=== PATIENT | female | born 1960 | race Hispanic/Latino ===

== ENCOUNTER 2018-05-08 07:17 | Emergency (ER) | payer OTHER ==
[2018-05-08] MEDS ORDERED: NA CHLORIDE 0.9% 1,000 ML ONE (07:42)
[2018-05-08] MEDS ORDERED: MECLIZINE HCL 12.5 MG TAB ONE (07:42)
[2018-05-08] MEDS ORDERED: ONDANSETRON 4 MG/2 ML VIAL ONE ×2 (07:43→11:16)
--- NOTE | 2018-05-08 08:07 | RAD REPORT ---
EXAM DESCRIPTION: CT - Head Brain Wo Cont - 05/08/2018 8:00 am CLINICAL HISTORY: DIZZINESS Headache, drowsiness COMPARISON: Head Brain Wo Cont dated 11/24/2016 TECHNIQUE: All CT scans are performed using dose optimization technique as appropriate and may inclu de automated exposure control or mA/KV adjustment according to patient size. FINDINGS: No intracranial hemorrhage, hydrocephalus or extra-axial fluid collection.No areas of brai n edema or evidence of midline shift. The paranasal sinuses and mastoids are clear. The calvarium is intact. IMPRESSION: No acute intracranial abnormality.
[2018-05-08 08:21] LABS: Absolute Lymphocytes (CBC) 1.7 K/uL (0.7-4.9); Absolute Monocytes 0.3 K/uL (0.1-1.3); Absolute Neutrophil 3.6 K/uL (1.8-8.0); Basophils % 0.7 % (0-1.3); Eosinophils % 0.9 % (0-4.4); Hematocrit 39.5 % (36.0-45.0); Lymphocytes % 30.2 % (15.3-44.8); MCH 30.7 pg (27.0-35.0); MCV 89.1 fL (80-100); MPV 9.6 fL (7.6-11.3); Monocytes % 5.4 % (3.3-12.3); RBC Red Blood Cell Count 4.43 M/uL (3.86-4.86)
[2018-05-08 08:25] LABS: Protime INR 1.03
[2018-05-08 09:12] LABS: ALT/SGPT 43 U/L (12-78); AST/SGOT 24 U/L (15-37); Albumin 3.6 g/dL (3.4-5.0); Alkaline Phosphatase 148 U/L (45-117); BUN Blood Urea Nitrogen 11 mg/dL (7-18); Bicarbonate 26 mmol/L (21-32); Bilirubin Direct 0.2 mg/dL (0-0.2); Bilirubin Total 0.6 mg/dL (0.2-1.0); CKMB Creatine Kinase MB < 1.0 ng/mL (0.3-3.6); Creatine Phosphokinase 34 U/L (26-192); Glucose Level 98 mg/dL (74-106); Magnesium 2.1 mg/dL (1.8-2.4); NT PRO-BNP 176 pg/mL (<125); Potassium 3.8 mmol/L (3.5-5.1); Protein, Total 7.6 g/dL (6.4-8.2); Sodium Level 142 mmol/L (136-145)
--- NOTE | 2018-05-08 09:12 | RAD REPORT ---
EXAM DESCRIPTION: RAD - Chest Single View - 05/08/2018 7:48 am CLINICAL HISTORY: COUGH Chest pain. COMPARISON: Chest Pa And Lat (2 Views) dated 09/10/2017; Chest Single View dated 11/24/2016; Chest Sin gle View dated 05/20/2016; Chest Single View dated 05/19/2016; Chest For Pe Angio dated 09/10/2017 FINDINGS: Portable technique limits examination quality. The lungs are grossly clear. The heart is normal in size. No displaced fractures.Cervical spine hardw are. IMPRESSION: No acute intrathoracic process suspected.
--- NOTE | 2018-05-08 09:19 | RAD REPORT ---
EXAM DESCRIPTION: MACARENA - KULDIP - 05/08/2018 8:47 am CLINICAL HISTORY: DIZZINESS Syncope, CVA. COMPARISON: No comparisons TECHNIQUE: Real-time sonographic evaluation of both carotid systems was performed. Doppler interroga tion was performed with waveform tracing bilaterally. FINDINGS: Normal high resistance waveforms are noted in both external carotid arteries. The common c arotid arteries and internal carotid arteries show normal low resistance waveforms. Mild mixed plaque is present involving both proximal internal carotid arteries. Peak systolic and end diastolic velocity values and the ICA/CCA ratios are in the non-hemodynamically significant range. Antegrade flow seen in both vertebral arteries. IMPRESSION: Mild mixed plaque involving both proximal internal carotid arteries. No evidence of a hemodynamically significant stenosis.
--- NOTE | 2018-05-08 09:33 | EDPHYS ---
Physician Documentation [facility] Name: Donna Kim Age: 57 yrs Sex: Female : 1960 Arrival Date: 05/08/2018 Time: 07:18 Bed 5 Private MD: Chip Gudino; Dex Alvarado F ED Physician Enoch Sanchez HPI: 05/08 07:35 This 57 yrs old Female presents to ER via Ambulatory with complaints of nelly Vertigo. 07:35 The patient presents with dizziness. Onset: The symptoms/episode began/occurred 3 nelly day(s) ago. Context: occurred at home, occurred while the patient was lying down, rolling over. Modifying factors: The symptoms are alleviated by holding head still, lying down, the symptoms are aggravated by nothing. Associated signs and symptoms: The patient has no apparent associated signs or symptoms. Severity of symptoms: At their worst the symptoms were mild in the emergency department the symptoms are unchanged. Patient's baseline: Neuro:. The patient has not experienced similar symptoms in the past. Historical: - Allergies: 07:33 Savella; sg - Home Meds: 07:35 Tramadol Oral [Active]; Xanax Oral [Active]; Metoprolol Tartrate Oral [Active]; Aspirin sg Oral [Active]; - PMHx: 07:33 clot in lung; CVA; EDEMA; Fibromyalgia; Hypertension; sg - PSHx: 07:33 NECK SX; Tubal ligation; FOOT SX; Appendectomy; Cholecystectomy; sg - Immunization history:: Adult Immunizations up to date. - Social history:: Smoking status: Patient uses tobacco products, 3-4 cigarettes per day. - Ebola Screening: : Patient negative for fever greater than or equal to 101.5 degrees Fahrenheit, and additional compatible Ebola Virus Disease symptoms Patient denies exposure to infectious person Patient denies travel to an Ebola-affected area in the 21 days before illness onset No symptoms or risks identified at this time. - Family history:: not pertinent. ROS: 07:35 Constitutional: Negative for fever, chills, and weight loss, Eyes: Negative for injury, nelly pain, redness, and discharge, ENT: Negative for injury, pain, and discharge, Neck: Negative for injury, pain, and swelling, Cardiovascular: Negative for chest pain, palpitations, and edema, Respiratory: Negative for shortness of breath, cough, wheezing, and pleuritic chest pain, Abdomen/GI: Negative for abdominal pain, nausea, vomiting, diarrhea, and constipation, Back: Negative for injury and pain, : Negative for injury, bleeding, discharge, and swelling, MS/Extremity: Negative for injury and deformity, Skin: Negative for injury, rash, and discoloration, Psych: Negative for depression, anxiety, suicide ideation, homicidal ideation, and hallucinations, Allergy/Immunology: Negative for hives, rash, and allergies, Endocrine: Negative for neck swelling, polydipsia, polyuria, polyphagia, and marked weight changes, Hematologic/Lymphatic: Negative for swollen nodes, abnormal bleeding, and unusual bruising. 07:35 Neuro: Positive for dizziness. Exam: 07:35 Constitutional: This is a well developed, well nourished patient who is awake, alert, nelly and in no acute distress. Head/Face: Normocephalic, atraumatic. Eyes: Pupils equal round and reactive to light, extra-ocular motions intact. Lids and lashes normal. Conjunctiva and sclera are non-icteric and not injected. Cornea within normal limits. Periorbital areas with no swelling, redness, or edema. ENT: Nares patent. No nasal discharge, no septal abnormalities noted. Tympanic membranes are normal and external auditory canals are clear. Oropharynx with no redness, swelling, or masses, exudates, or evidence of obstruction, uvula midline. Mucous membranes moist. Neck: Trachea midline, no thyromegaly or masses palpated, and no cervical lymphadenopathy. Supple, full range of motion without nuchal rigidity, or vertebral point tenderness. No Meningismus. Chest/axilla: Normal chest wall appearance and motion. Nontender with no deformity. No lesions are appreciated. Cardiovascular: Regular rate and rhythm with a normal S1 and S2. No gallops, murmurs, or rubs. Normal PMI, no JVD. No pulse deficits. Respiratory: Lungs have equal breath sounds bilaterally, clear to auscultation and percussion. No rales, rhonchi or wheezes noted. No increased work of breathing, no retractions or nasal flaring. Abdomen/GI: Soft, non-tender, with normal bowel sounds. No distension or tympany. No guarding or rebound. No evidence of tenderness throughout. Back: No spinal tenderness. No costovertebral tenderness. Full range of motion. Skin: Warm, dry with normal turgor. Normal color with no rashes, no lesions, and no evidence of cellulitis. MS/ Extremity: Pulses equal, no cyanosis. Neurovascular intact. Full, normal range of motion. Neuro: Awake and alert, GCS 15, oriented to person, place, time, and situation. Cranial nerves II-XII grossly intact. Motor strength 5/5 in all extremities. Sensory grossly intact. Cerebellar exam normal. Normal gait. Psych: Awake, alert, with orientation to person, place and time. Behavior, mood, and affect are within normal limits. 07:35 Musculoskeletal/extremity: DVT Exam: No signs of deep vein thrombosis. no pain, no swelling, no tenderness, negative Homans' sign noted on exam, no appreciated bluish discoloration, no erythema, no increased warmth. Vital Signs: 07:31 BP 158 / 84; Pulse 63; Resp 16; Temp 97.9; Pulse Ox 99% on R/A; Weight 86.64 kg (R); sg Pain 6/10; 09:59 BP 149 / 82; Pulse 59; Resp 18; Pulse Ox 100% ; sv 11:00 BP 141 / 85; Pulse 60; Resp 18; Pulse Ox 100% ; sv 12:00 BP 158 / 85; Pulse 56; Resp 18; Pulse Ox 100% ; sv 12:45 BP 152 / 82; Pulse 60; Resp 18; Pulse Ox 99% ; sv 07:31 reports back pain from injury last week MDM: 07:21 Patient medically screened. [facility] 07:38 Data reviewed: vital signs, nurses notes, lab test result(s), EKG, radiologic studies, [facility] CT scan, plain films. 05/08 07:34 Order name: Basic Metabolic Panel; Complete Time: 09:31 [facility] 05/08 07:34 Order name: CBC with Diff; Complete Time: 08:58 [facility] 05/08 07:34 Order name: Ckmb; Complete Time: 09:31 [facility] 05/08 07:34 Order name: CPK; Complete Time: 09:31 [facility] 05/08 07:34 Order name: LFT's; Complete Time: 09:31 [facility] 05/08 07:34 Order name: Magnesium; Complete Time: 09:31 [facility] 05/08 07:34 Order name: NT PRO-BNP; Complete Time: 09:31 nelly 05/08 07:34 Order name: PT-INR; Complete Time: 08:58 nelly 05/08 07:34 Order name: Ptt, Activated; Complete Time: 08:58 nelly 05/08 07:34 Order name: Troponin (emerg Dept Use Only); Complete Time: 08:58 nelly 05/08 09:22 Order name: Urine Dipstick--Ancillary (enter results); Complete Time: 09:38 eb 05/08 09:22 Order name: Urine --Ancillary (enter results); Complete Time: 09:38 eb 05/08 09:32 Order name: Ckmb; Complete Time: 11:28 nelly 05/08 09:32 Order name: Creatine Phosphokinase; Complete Time: 11:28 nelly 05/08 07:34 Order name: XRAY Chest (1 view); Complete Time: 09:31 nelly 05/08 07:34 Order name: EKG; Complete Time: 07:35 nelly 05/08 07:34 Order name: EKG - Nurse/Tech; Complete Time: 09:21 nelly 05/08 07:34 Order name: CT Head Brain wo Cont; Complete Time: 08:58 nelly 05/08 07:34 Order name: US Carotid Artery Bilateral; Complete Time: 09:31 nelly 05/08 09:32 Order name: Troponin (emerg Dept Use Only); Complete Time: 11:28 nelly 05/08 09:32 Order name: EKG; Complete Time: 09:32 nelly 05/08 10:34 Order name: Brain Wo Cont; Complete Time: 11:28 EDMS 05/08 07:34 Order name: IV Saline Lock; Complete Time: 09:19 nelly 05/08 07:34 Order name: Labs collected and sent; Complete Time: 09:19 nelly 05/08 07:34 Order name: O2 Per Protocol; Complete Time: 09:19 nelly 05/08 07:34 Order name: O2 Sat Monitoring; Complete Time: 09:19 nelly 05/08 07:34 Order name: Urine Dipstick-Ancillary (obtain specimen); Complete Time: 09:19 nelly 05/08 09:32 Order name: Repeat Cardiac Enzymes at: 10am; Complete Time: 10:04 nelly 05/08 09:32 Order name: EKG - Nurse/Tech; Complete Time: 10:13 [facility] Administered Medications: 07:55 Drug: Zofran 4 mg Route: IVP; Site: right forearm; sg 09:27 Follow up: Response: No adverse reaction sv 08:15 Drug: Meclizine 50 mg Route: PO; sg 09:27 Follow up: Response: No adverse reaction sv 08:20 Drug: NS 0.9% 1000 ml Route: IV; Rate: 1 bolus; Site: right forearm; sg 09:45 Drug: Aspirin 162 mg Route: PO; sv 10:01 Follow up: Response: No adverse reaction sv 09:45 Drug: Decadron - Dexamethasone 10 mg Route: IVP; Site: right forearm; sv 10:01 Follow up: Response: No adverse reaction sv 11:18 Drug: Zofran 4 mg Route: IVP; Site: right forearm; sv 11:30 Follow up: Response: No adverse reaction sv Disposition: 05/08/18 09:33 Discharged to Home. Impression: Vertiginous syndromes in diseases classified elsewhere, unspecified ear, Dizziness and giddiness, Vomiting. - Condition is Stable. - Discharge Instructions: Benign Positional Vertigo, Dizziness, Nausea and Vomiting, Adult, Vertigo, Nausea and Vomiting, Adult, [id number]-[id number], Aspirin and Your Heart, Dizziness, [id number]. - Prescriptions for Meclizine 25 mg Oral Tablet - take 1 tablet by ORAL route every 8 hours As needed; 30 tablet. Zofran 4 mg Oral Tablet - take 1 tablet by ORAL route every 12 hours As needed; 20 tablet. - Medication Reconciliation Form, Thank You Letter, Antibiotic Education, Prescription Opioid Use, Work release form form. - Follow up: Dex Alvarado; When: 2 - 3 days; Reason: Recheck today's complaints, Continuance of care, Re-evaluation by your physician. Follow up: Private Physician; When: 2 - 3 days; Reason: Recheck today's complaints, Continuance of care, Re-evaluation by your physician. - Problem is new. - Symptoms have improved. Signatures: Dispatcher [employer] Asia Ross RN Justin Hicks RN RN sg Anderson, Corey, MD MD cha Baxter, Heather, RN RN Corrections: (The following items were deleted from the chart) 09:33 09:33 05/08/2018 09:33 Discharged to Home. Impression: Vertiginous syndromes in nelly diseases classified elsewhere, unspecified ear; Dizziness and giddiness; Vomiting. Condition is Stable. Discharge Instructions: Benign Positional Vertigo, Dizziness, Nausea and Vomiting, Adult, Vertigo, Nausea and Vomiting, Adult, [id number]-[id number], Dizziness, [id number]. Prescriptions for Meclizine 25 mg Oral Tablet - take 1 tablet by ORAL route every 8 hours As needed; 30 tablet, Zofran 4 mg Oral Tablet - take 1 tablet by ORAL route every 12 hours As needed; 20 tablet. and Forms are Medication Reconciliation Form, Thank You Letter, Antibiotic Education, Prescription Opioid Use. Follow up: Dex Alvarado; When: 2 - 3 days; Reason: Recheck today's complaints, Continuance of care, Re-evaluation by your physician. Problem is new. Symptoms have improved. [facility] 10:34 09:38 MR STROKE PROTOCOL+MRI.RAD.BRZ ordered. EDTX EDMS 12:56 09:33 05/08/2018 09:33 Discharged to Home. Impression: Vertiginous syndromes in hb diseases classified elsewhere, unspecified ear; Dizziness and giddiness; Vomiting. Condition is Stable. Discharge Instructions: Benign Positional Vertigo, Dizziness, Nausea and Vomiting, Adult, Vertigo, Nausea and Vomiting, Adult, [id number], Dizziness, Lgwk-[id number]. Prescriptions for Meclizine 25 mg Oral Tablet - take 1 tablet by ORAL route every 8 hours As needed; 30 tablet, Zofran 4 mg Oral Tablet - take 1 tablet by ORAL route every 12 hours As needed; 20 tablet. and Forms are Medication Reconciliation Form, Thank You Letter, Antibiotic Education, Prescription Opioid Use. Follow up: Dex Alvarado; When: 2 - 3 days; Reason: Recheck today's complaints, Continuance of care, Re-evaluation by your physician. Follow up: Private Physician; When: 2 - 3 days; Reason: Recheck today's complaints, Continuance of care, Re-evaluation by your physician. Problem is new. Symptoms have improved. nelly
--- NOTE | 2018-05-08 09:33 | ER ---
Nurse's Notes [facility] Name: Donna Kim Age: 57 yrs Sex: Female : 1960 Arrival Date: 05/08/2018 Time: 07:18 Bed 5 Private MD: Chip Gudino; Dex Alvarado F Diagnosis: Vertiginous syndromes in diseases classified elsewhere, unspecified ear;Dizziness and giddiness;Vomiting Presentation: 05/08 07:29 Presenting complaint: Patient states: Yesterday morning, around 0900, I started being sg dizzy, it got worse at work so I went home and started vomiting, I took half a tablet of promethazine and the vomiting went away. The dizziness is worse went i turn my head to look to my right, and then straighten my head, I my vision changes, like the world is shaking. Transition of care: patient was not received from another setting of care. Onset of symptoms was May 07, 2018. Risk Assessment: Do you want to hurt yourself or someone else? Patient reports no desire to harm self or others. Initial Sepsis Screen: Does the patient meet any 2 criteria? No. Patient's initial sepsis screen is negative. Does the patient have a suspected source of infection? No. Patient's initial sepsis screen is negative. Care prior to arrival: None. 07:29 Method Of Arrival: Ambulatory sg 07:29 Acuity: CAMELIA 3 sg Historical: - Allergies: 07:33 Savella; sg - Home Meds: 07:35 Tramadol Oral [Active]; Xanax Oral [Active]; Metoprolol Tartrate Oral [Active]; Aspirin sg Oral [Active]; - PMHx: 07:33 clot in lung; CVA; EDEMA; Fibromyalgia; Hypertension; sg - PSHx: 07:33 NECK SX; Tubal ligation; FOOT SX; Appendectomy; Cholecystectomy; sg - Immunization history:: Adult Immunizations up to date. - Social history:: Smoking status: Patient uses tobacco products, 3-4 cigarettes per day. - Ebola Screening: : Patient negative for fever greater than or equal to 101.5 degrees Fahrenheit, and additional compatible Ebola Virus Disease symptoms Patient denies exposure to infectious person Patient denies travel to an Ebola-affected area in the 21 days before illness onset No symptoms or risks identified at this time. - Family history:: not pertinent. Screenin:02 Abuse screen: Denies threats or abuse. Denies injuries from another. Nutritional sg screening: No deficits noted. Tuberculosis screening: No symptoms or risk factors identified. Never had TB. Fall Risk None identified. Assessment: 07:40 General: Appears in no apparent distress. comfortable, well groomed, well developed, sg well nourished, Behavior is calm, cooperative, appropriate for age. Pain: Complains of pain in back and abdomen. Neuro: Level of Consciousness is awake, alert, obeys commands, Oriented to person, place, time, Prescription Clerk are equal bilaterally Moves all extremities. Full function Gait is steady, Speech is normal, Facial symmetry appears normal. Neuro: Reports dizziness. Cardiovascular: Heart tones S1 S2 present Capillary refill is brisk in bilateral fingers Patient's skin is warm and dry. Chest pain is denied. Respiratory: Airway is patent Respiratory effort is even, unlabored, Respiratory pattern is regular, symmetrical. GI: Abdomen is flat, non-distended, Bowel sounds present X 4 quads. GI: Reports lower abdominal pain, nausea. : No signs and/or symptoms were reported regarding the genitourinary system. EENT: No signs and/or symptoms were reported regarding the EENT system. Derm: Skin is pink, warm \T\ dry. Musculoskeletal: No signs and/or symptoms reported regarding the musculoskeletal system. 09:10 Reassessment: Patient appears in no apparent distress at this time. No changes from sv previously documented assessment. Patient and/or family updated on plan of care and expected duration. Pain level reassessed. Patient is alert, oriented x 3, equal unlabored respirations, skin warm/dry/pink. Pt ambulatory to the bathroom with standby assist. Urine sample obtained. 09:45 Reassessment: Pt waiting for MRI, repeat EKG, and repeat Troponin to be drawn and sv resulted. 11:15 Reassessment: Patient appears in no apparent distress at this time. Patient and/or sv family updated on plan of care and expected duration. Pain level reassessed. Patient is alert, oriented x 3, equal unlabored respirations, skin warm/dry/pink. 11:15 GI: Reports nausea. sv 12:00 Reassessment: Patient appears in no apparent distress at this time. Patient and/or sv family updated on plan of care and expected duration. Pain level reassessed. Patient is alert, oriented x 3, equal unlabored respirations, skin warm/dry/pink. 12:20 Reassessment: Patient appears in no apparent distress at this time. Patient and/or sv family updated on plan of care and expected duration. Pain level reassessed. Patient is alert, oriented x 3, equal unlabored respirations, skin warm/dry/pink. Pt still c/o dizziness. Dr Sanchez informed. Vital Signs: 07:31 BP 158 / 84; Pulse 63; Resp 16; Temp 97.9; Pulse Ox 99% on R/A; Weight 86.64 kg (R); sg Pain 6/10; 09:59 BP 149 / 82; Pulse 59; Resp 18; Pulse Ox 100% ; sv 11:00 BP 141 / 85; Pulse 60; Resp 18; Pulse Ox 100% ; sv 12:00 BP 158 / 85; Pulse 56; Resp 18; Pulse Ox 100% ; sv 12:45 BP 152 / 82; Pulse 60; Resp 18; Pulse Ox 99% ; sv 07:31 reports back pain from injury last week sg ED Course: 07:18 Patient arrived in ED. as 07:19 Iraida Gudino MD is Private Physician. as 07:21 Enoch Sanchez MD is Attending Physician. nelly 07:28 Justin Caceres, SENAIT is Primary Nurse. sg 07:31 Triage completed. sg 07:33 Arm band placed on. sg 07:35 Oliverio Bustamante MD is Private Physician. sg 07:35 Chip Gudino is Private Physician. sg 07:36 Dex Alvarado MD is Private Physician. sg 07:46 X-ray completed. Portable x-ray completed in exam room. Patient tolerated procedure ml well. 07:47 XRAY Chest (1 view) In Process Unspecified. EDMS 07:[address] kw1 07:59 CT Head Brain wo Cont In Process Unspecified. EDMS 07:59 CT completed. Patient tolerated procedure well. Patient moved back from CT. nj 08:00 Patient taken to ultrasound. nj 08:01 Initial lab(s) drawn, by me, sent to lab. Inserted saline lock: 22 gauge in right sg forearm, using aseptic technique. Blood collected. 08:41 EKG done, by process safety engineering technologist. reviewed by Enoch Sanchez MD. at1 08:46 US Carotid Artery Bilateral In Process Unspecified. EDMS 08:46 Ultrasound completed. Patient tolerated well. Patient moved back from ultrasound. aa4 09:10 Patient has correct armband on for positive identification. Bed in low position. Call sv light in reach. Pulse ox on. NIBP on. Door closed. Warm blanket given. Head of bed elevated. 09:33 Dex Alvarado MD is Referral Physician. nelly 10:12 EKG done, by process safety engineering technologist. reviewed by Enoch Sanchez MD Repeat EKG. at1 10:30 Patient moved to MRI via wheelchair. em2 10:30 Primary Nurse role handed off by Justin Caceres RN sv 10:30 Asia Moreira, SENAIT is Primary Nurse. sv 10:34 Brain Wo Cont In Process Unspecified. EDMS 12:32 ED physician to see patient. sv 12:55 No provider procedures requiring assistance completed. IV discontinued, intact, hb bleeding controlled, No redness/swelling at site. Pressure dressing applied. Administered Medications: 07:55 Drug: Zofran 4 mg Route: IVP; Site: right forearm; sg 09:27 Follow up: Response: No adverse reaction sv 08:15 Drug: Meclizine 50 mg Route: PO; sg 09:27 Follow up: Response: No adverse reaction sv 08:20 Drug: NS 0.9% 1000 ml Route: IV; Rate: 1 bolus; Site: right forearm; sg 09:45 Drug: Aspirin 162 mg Route: PO; sv 10:01 Follow up: Response: No adverse reaction sv 09:45 Drug: Decadron - Dexamethasone 10 mg Route: IVP; Site: right forearm; sv 10:01 Follow up: Response: No adverse reaction sv 11:18 Drug: Zofran 4 mg Route: IVP; Site: right forearm; sv 11:30 Follow up: Response: No adverse reaction sv Outcome: 09:33 Discharge ordered by . nelly 12:55 Discharged to home via wheelchair, with family. hb 12:55 Condition: stable 12:55 Discharge instructions given to patient, Instructed on discharge instructions, follow up and referral plans. medication usage, Demonstrated understanding of instructions, follow-up care, medications, Prescriptions given X 2. 12:56 Patient left the ED. hb Signatures: Dispatcher [employer] EDTX Asia Moreira RN RN Caceres, Justin, Enoch Marina RN, MD MD cha Martinez, Krysta Salcedo, Ember ml Isa Bose aa4 Amador Reeves em2 Isa condon, certified midwife EKG Tat1 Amie Hernandez, SENAIT SAPP David, Lexx Escobedo, Carolina kw1 Corrections: (The following items were deleted from the chart) 09:21 08:00 Meclizine 50 mg PO sg sg 12:34 11:20 Reassessment: Patient appears in no apparent distress at this time. Patient sv and/or family updated on plan of care and expected duration. Pain level reassessed. Patient is alert, oriented x 3, equal unlabored respirations, skin warm/dry/pink. sv 12:35 11:20 GI: Reports nausea, sv sv 12:58 12:00 Reassessment: Patient appears in no apparent distress at this time. Patient sv and/or family updated on plan of care and expected duration. Pain level reassessed. Patient is alert, oriented x 3, equal unlabored respirations, skin warm/dry/pink. Patient states symptoms have improved. hb
[2018-05-08 09:35] LABS: Urine Blood NEGATIVE (NEG); Urine Glucose NEGATIVE (NEG); Urine Protein NEGATIVE (NEG)
[2018-05-08] MEDS ORDERED: ASPIRIN 81 MG CHEWABLE TABLET ONE (09:43)
[2018-05-08] MEDS ORDERED: DEXAMETHASONE 10 MG/ML VIAL ONE (09:43)
[2018-05-08 11:08] LABS: CKMB Creatine Kinase MB < 1.0 ng/mL (0.3-3.6); Creatine Phosphokinase 43 U/L (26-192)
--- NOTE | 2018-05-08 11:10 | RAD REPORT ---
EXAM DESCRIPTION: MRI - Brain Wo Cont - 05/08/2018 10:43 am CLINICAL HISTORY: dizziness COMPARISON: November 2016 MRI TECHNIQUE: Axial, sagittal, and coronal magnetic images of the brain were obtained. Contrast was not requested FINDINGS: A sub centimeter area of abnormal signal within the right temporal lobe is unchanged. No a dditional abnormal signal within the brain is seen. Diffusion-weighted/ADC mapping does not reveal evidence of acute infarction. The ventricles are normal caliber. An extra-axial fluid collection is not present The sinuses and mastoids are clear. IMPRESSION: Sub centimeter area of abnormal signal is unchanged. It may be associated with mesial te mporal sclerosis. No acute abnormality is seen
[2018-05-08 13:09] VITALS: TEMP 97.9
[2018-05-08 13:10] VITALS: O2SAT 100
[2018-05-08 13:13] VITALS: BP 158/85
--- NOTE | 2018-05-08 14:34 | EKG ---
Test Date: 2018-05-08 Test Time: 10:08:05 [employer]: MIRTHA MEASUREMENT RESULTS: Intervals: Rate: 60 UT: 138 QRSD: 86 QT: 470 QTc: 470 [place]: P: 16 UT: 138 QRS: 32 T: 28 INTERPRETIVE STATEMENTS: Sinus rhythm with sinus arrhythmia with occasional premature ventricular complexes T wave abnormality, consider anterior ischemia Prolonged QT Abnormal ECG Compared to ECG 05/08/2018 08:30:38 Ventricular premature complex(es) now present Prolonged QT interval now present T-wave abnormality still present Possible ischemia still present Electronically Signed On 05-08-18 14:34:12 CDT by Elia Yepez
--- NOTE | 2018-05-08 14:35 | EKG ---
Test Date: 2018-05-08 Test Time: 08:30:38 Shirt Sorter: MIRTHA MEASUREMENT RESULTS: Intervals: Rate: 61 VT: 152 QRSD: 88 QT: 440 QTc: 442 [place]: P: 14 VT: 152 QRS: 13 T: -4 INTERPRETIVE STATEMENTS: Normal sinus rhythm T wave abnormality, consider anterior ischemia Abnormal ECG Compared to ECG 09/10/2017 12:16:29 T-wave abnormality now present Possible ischemia now present Myocardial infarct finding no longer present Electronically Signed On 05-08-18 14:34:22 CDT by Elia Yepez
== END 2018-05-08 12:56 | disposition home or self-care (01) ==
LOC: ER 07:17
DX: H82.9 Vertiginous syndromes in diseases classified elsewhere, unspecified ear (principal); R11.10 Vomiting, unspecified; I10 Essential (primary) hypertension; F17.210 Nicotine dependence, cigarettes, uncomplicated; Z79.82 Long term (current) use of aspirin; Z88.8 Allergy status to other drugs, medicaments and biological substances; Z86.73 Personal history of transient ischemic attack (TIA), and cerebral infarction without residual deficits
CPT/HCPCS: 36415; 70450; 70551; 71045; 80048; 80076; 81003; 81025; 82550; 82553; 83735; 83880; 84484; 85025; 85610; 85730; 93005; 93880; 96374; 96375; 99285; J1100; J2405; J7030

== ENCOUNTER 2019-06-26 06:54 | Day surgery (SDC) | payer OTHER ==
[2019-06-26] MEDS ORDERED: Ringers Lactate 1,000 ML IV ONE (07:05)
[2019-06-26] MEDS ORDERED: NA CHLORIDE 0.9% 1,000 ML ONE (07:31)
[2019-06-26] MEDS ORDERED: LIDOCAINE 1% W/EPI 1:100,000 MDV 20 ML VIAL ONE (07:31)
[2019-06-26] MEDS ORDERED: FENTANYL CITR 100 MCG/2 ML ONE (07:43)
[2019-06-26] MEDS ORDERED: MIDAZOLAM HCL 2 MG/2 ML INJ ONE ×2 (07:43→08:03)
[2019-06-26] MEDS ORDERED: LIDOCAINE 1% MPF 5 ML VIAL ONE ×2 (07:43→07:44)
[2019-06-26] MEDS ORDERED: PROPOFOL 200 MG/20 ML VIAL IV ONE (07:43)
[2019-06-26] MEDS ORDERED: KETOROLAC 30 MG/ML INJ ONE (08:29)
[2019-06-26] MEDS ORDERED: ONDANSETRON 4 MG/2 ML VIAL ONE (09:08)
[2019-06-26 10:55] VITALS: BP 148/68; TEMP 97.2; O2SAT 96
--- NOTE | 2019-06-26 20:48 | OP ---
Surgeon: Shalonda Hartman MD Preoperative Diagnosis: Postmenopausal bleeding. Postoperative Diagnoses: Postmenopausal bleeding and pelvic pain. Procedure Performed: Hysteroscopy, D and C. Anesthesia: MAC plus paracervical block. Specimens: Very scant endometrial curettings. Complications: No complications. Drains: No drains. Condition: Stable. Indications: Patient is a 58-year-old female, who had presented with postmenopausal bleeding. She h as history of cervical dysplasia, MOHIT 3, for which she had a LEEP. She seen Dr. Vazquez in 2017 for a Pap and it was negative, PAP/HPV negative. So, no Pap was done at this time since it was less than 3 years. Then, her bleeding evaluation was done with transvaginal ultrasound. She was complaining of pelvic pain as well, she had endometrial sampling, so she given a history of cervical stenosis from the LEEP and she was consented for hysteroscopy in the hospital and endometrial sampling after cavity visualization. Description Of Procedure: After informed consent was verified, the patient was taken back to OR, rima najana in supine fashion on the operating table. After MAC was given, she was placed in a dorsal lithot mandy position. Pelvic exam was performed. No significant prolapse was noted. Uterus anteflexed, sli ghtly enlarged. No adnexal masses, small bowel. Prep x3 with Betadine was done. Speculum was place d to expose the cervix. Anterior lip injected with 1% lidocaine, mixed with 1:100,000 epinephrine. An 8 cc at the 12 o'clock and 6 cc each at 4 and 8 o'clock positions of the cervicovaginal junction f or a paracervical block. Then, anterior lip grasped with 2 Allis clamps. Cervix was dilated with th e tip of a hemostat to allow the permit the entry of the scope. Then, a SlimLine diagnostic hysteros cope with a 30-degree lens normal saline was used to enter the cervical canal under direct visualizat ion and cavity was entered. Cavity was empty and lining appeared to be atrophic. Both tubal ostia w ere visualized. No intracavitary masses were seen. The scope was removed. Cervix had to be dilated to 14-German with Rich dilators. Once this was done, #0 endometrial curette was used for curetting s as extremely scant amount of tissue was obtained; however, the material on the Telfa was sent out f or permanent pathology. All instruments were removed. Toradol was given. Instrument, needle, and s ponge counts were correct. The patient was recovered from anesthesia in the OR and taken to the surg sonja. She will follow up with me in 1 week as appointment. RACHAEL/LAUAR Voice ID: [id number] Report ID: [id number]
== END 2019-06-26 09:55 | disposition home or self-care (01) ==
LOC: OR 06:54
PROVIDERS: ATTEND Obstetrics & Gynecology
PROC: 0UJD8ZZ Inspection of Uterus and Cervix, Via Natural or Artificial Opening Endoscopic (ICD-10-PCS; 2019-06-26)
PROC: 0UDB7ZX Extraction of Endometrium, Via Natural or Artificial Opening, Diagnostic (ICD-10-PCS; principal; 2019-06-26 08:30)
DX: N95.0 Postmenopausal bleeding (principal); R10.2 Pelvic and perineal pain; I10 Essential (primary) hypertension; E03.9 Hypothyroidism, unspecified; M79.7 Fibromyalgia; F41.9 Anxiety disorder, unspecified; Z86.001 Personal history of in-situ neoplasm of cervix uteri; Z86.73 Personal history of transient ischemic attack (TIA), and cerebral infarction without residual deficits; Z82.49 Family history of ischemic heart disease and other diseases of the circulatory system; Z80.41 Family history of malignant neoplasm of ovary; Z80.0 Family history of malignant neoplasm of digestive organs; Z82.3 Family history of stroke
CPT/HCPCS: 88305; 58558; J2704; J2250 ×2; J3010; J7030; J2405

== ENCOUNTER 2019-10-05 03:14 | Inpatient (IN) | payer OTHER ==
[2019-10-05] MEDS ORDERED: LEVALBUTEROL 1.25 MG/3 ML NEB ONE (03:48)
[2019-10-05] MEDS ORDERED: ONDANSETRON 4 MG/2 ML VIAL ONE (03:49)
[2019-10-05] MEDS ORDERED: MORPHINE 4 MG/ML SYR ONE ×2 (03:49→05:46)
[2019-10-05 03:57] LABS: Protime INR 1.35
[2019-10-05 04:00] LABS: Absolute Lymphocytes (CBC) 1.3 K/uL (0.7-4.9); Basophils % 0.9 % (0-1.3); Hematocrit 38.2 % (36.0-45.0); Lymphocytes % 9.1 % (15.3-44.8); MPV 8.9 fL (7.6-11.3); RBC Red Blood Cell Count 4.22 M/uL (3.86-4.86)
[2019-10-05 04:10] LABS: ALT/SGPT 36 U/L (12-78); AST/SGOT 18 U/L (15-37); Albumin 3.6 g/dL (3.4-5.0); Alkaline Phosphatase 168 U/L (45-117); BUN Blood Urea Nitrogen 7 mg/dL (7-18); Bicarbonate 24 mmol/L (21-32); Bilirubin Direct 0.4 mg/dL (0-0.2); Bilirubin Total 1.3 mg/dL (0.2-1.0); Glucose Level 134 mg/dL (74-106); NT PRO-BNP 110 pg/mL (<125); Potassium 3.9 mmol/L (3.5-5.1); Protein, Total 7.7 g/dL (6.4-8.2); Sodium Level 136 mmol/L (136-145); Troponin (Emerg Dept Use Only) < 0.02 ng/mL (0.0-0.045)
--- NOTE | 2019-10-05 06:14 | ER ---
Nurse's Notes [facility] Name: Donna Sinclair Age: 59 yrs Sex: Female : 1960 Arrival Date: 10/05/2019 Time: 03:15 Bed 19 Private MD: Diagnosis: Pulmonary embolism;Hypoxemia;Dyspnea, unspecified Presentation: 10/05 03:35 Presenting complaint: Patient states: "I was having right sided kidney pain yesterday jd3 starting at 1300. It progressed to chest pain and back pain today.". Transition of care: patient was not received from another setting of care. Onset of symptoms was October 05, 2019. Risk Assessment: Do you want to hurt yourself or someone else? Patient reports no desire to harm self or others. Initial Sepsis Screen: Does the patient meet any 2 criteria? RR > 20 per min. HR > 90 bpm. Yes Does the patient have a suspected source of infection? No. Patient's initial sepsis screen is negative. Care prior to arrival: None. 03:35 Method Of Arrival: Wheelchair jd3 03:35 Acuity: CAMELIA 2 jd3 04:35 Note daughter in law: Cyndi Toussaint: [phone]. jd3 Historical: - Allergies: 04:05 Savella; jd3 - Home Meds: 04:05 Aspirin Oral [Active]; Metoprolol Tartrate Oral [Active]; Tramadol Oral [Active]; Xanax jd3 Oral [Active]; - PMHx: 04:05 clot in lung; CVA; EDEMA; Fibromyalgia; Hypertension; jd3 - PSHx: 04:05 NECK SX; Appendectomy; Cholecystectomy; Tubal ligation; FOOT SX; jd3 - Immunization history:: Adult Immunizations up to date. - Social history:: Smoking status: Patient uses tobacco products, smokes one-half pack cigarettes per day, smokes one pack cigarettes per day. - Ebola Screening: : Patient negative for fever greater than or equal to 101.5 degrees Fahrenheit, and additional compatible Ebola Virus Disease symptoms. - Family history:: not pertinent. - Hospitalizations: : No recent hospitalization is reported. Screenin:09 Abuse screen: Denies threats or abuse. Nutritional screening: No deficits noted. jd3 Tuberculosis screening: No symptoms or risk factors identified. Fall Risk IV access (20 points). Ambulatory Aid- Crutches/Cane/Walker (15 pts). Gait- Weak (10 pts.). Mental Status- Oriented to own ability (0 pts). Total Garcias Fall Scale indicates High Risk Score (45 or more points). Fall prevention measures have been instituted. Side Rails Up X 2 Placed Close to Nursing Station Frequent Obs/Assessments Occuring Family Present and informed to notify staff if the need to leave the bedside. Assessment: 03:35 General: Appears in no apparent distress. uncomfortable, Behavior is calm, cooperative, jd3 appropriate for age, Reports recent surgery to back of neck and right foot. Pain: Complains of pain in chest Pain radiates to back Pain began suddenly. Neuro: Level of Consciousness is awake, alert, obeys commands, Oriented to person, place, time, situation. Cardiovascular: Capillary refill < 3 seconds Patient's skin is warm and dry. Rhythm is sinus tachycardia. Respiratory: Reports shortness of breath at rest Airway is patent Respiratory effort is even, unlabored, Respiratory pattern is regular, symmetrical, Breath sounds are diminished bilaterally. GI: Abdomen is round non-distended, Abd is soft and non tender X 4 quads. Reports nausea. : No signs and/or symptoms were reported regarding the genitourinary system. EENT: No signs and/or symptoms were reported regarding the EENT system. Derm: Skin is intact, Skin is dry, Skin is normal, Skin temperature is warm cast in place and reported surgery to the right foot. Musculoskeletal: Circulation, motion, and sensation intact. Range of motion: intact in all extremities, limited in right ankle. 04:11 Reassessment: Patient appears in no apparent distress at this time. Patient and/or jd3 family updated on plan of care and expected duration. Pain level reassessed. Patient is alert, oriented x 3, equal unlabored respirations, skin warm/dry/pink. pt reporting medication started to help a little. 05:18 Reassessment: Patient appears in no apparent distress at this time. Patient and/or jd3 family updated on plan of care and expected duration. Pain level reassessed. Patient is alert, oriented x 3, equal unlabored respirations, skin warm/dry/pink. resting in bed with eyes closed, even and unlabored respirations. call rivera in reach. awaiting results. Patient states feeling better. 06:10 Reassessment: Patient appears in no apparent distress at this time. Patient and/or jd3 family updated on plan of care and expected duration. Pain level reassessed. Patient is alert, oriented x 3, equal unlabored respirations, skin warm/dry/pink. assisted pt to restroom and back to room using a wheelchair. provider at bedside discussing plan of care with pt. 06:50 Reassessment: Patient appears in no apparent distress at this time. Patient and/or jd3 family updated on plan of care and expected duration. Pain level reassessed. Patient is alert, oriented x 3, equal unlabored respirations, skin warm/dry/pink. awaiting admission orders and room assignment. Vital Signs: 03:35 BP 120 / 94; Pulse 129; Resp 28 S; Temp 100.1(O); Pulse Ox 93% on R/A; Weight 81.65 kg jd3 (R); Height 5 ft. 4 in. (162.56 cm) (R); Pain 10/10; 04:10 BP 122 / 80; Pulse 117; Resp 20 S; Pulse Ox 99% on Nebulizer Mask; jd3 05:19 BP 118 / 85; Pulse 113; Resp 20 S; Pulse Ox 96% on 2 lpm NC; jd3 06:09 BP 130 / 88; Pulse 117; Resp 26 S; Temp 98.8(O); Pulse Ox 96% on 2 lpm NC; jd3 07:00 BP 131 / 87; Pulse 115; Resp 25 S; Pulse Ox 97% on 2 lpm NC; jd3 08:03 BP 140 / 94; Pulse 107; Resp 24; Pulse Ox 97% on 2 lpm NC; em 08:55 BP 137 / 79; Pulse 110; Resp 40; Temp 98.1(O); Pulse Ox 95% on 2 lpm NC; mh5 03:35 Body Mass Index 30.90 (81.65 kg, 162.56 cm) jd3 ED Course: 03:15 Patient arrived in ED. ds1 03:22 Gilbert Jennings MD is Attending Physician. rn 03:33 Bal Emerson RN is Primary Nurse. jd3 03:35 Inserted saline lock: 20 gauge in right forearm, using aseptic technique. Blood jd3 collected. 03:35 Oxygen administration via nasal cannula \\T\\ 2L/min Response to oxygen therapy: symptoms jd3 improved. 03:35 Arm band placed on. EKG completed in triage. Results shown to . jd3 03:35 nuclear monitoring technician on. Pulse ox on. NIBP on. jd3 03:35 Patient has correct armband on for positive identification. Placed in gown. Bed in low jd3 position. Call light in reach. Side rails up X2. Adult w/ patient. 03:52 XRAY Chest (1 view) In Process Unspecified. EDMS 04:02 Triage completed. jd3 04:57 CT completed. Pt tolerated procedure poorly. Patient moved to CT via stretcher. Patient eh moved back from CT. 05:08 CT Chest For PE Angio In Process Unspecified. EDMS 06:11 Jose Raul Joy MD is Hospitalizing Provider. rn 16:02 No provider procedures requiring assistance completed. Patient admitted, IV remains in em place. Administered Medications: 03:55 Drug: Xopenex (3) 1.25 mg Route: Inhalation; jd3 04:55 Follow up: Response: No adverse reaction jd3 03:56 Drug: morphine 4 mg Route: IVP; Site: right forearm; jd3 07:19 Follow up: Response: No adverse reaction; RASS: Alert and Calm (0) jd3 03:56 Drug: Zofran 4 mg Route: IVP; Site: right forearm; jd3 04:55 Follow up: Response: No adverse reaction jd3 05:47 Drug: morphine 4 mg Route: IVP; Site: right forearm; jd3 07:22 Follow up: Response: No adverse reaction; RASS: Alert and Calm (0) jd3 06:22 Drug: Lovenox 80 mg Route: Sub-Q; Site: abdomen; jd3 07:00 Follow up: Response: No adverse reaction jd3 Outcome: 06:13 Decision to Hospitalize by Provider. rn 16:02 Admitted to Tele accompanied by tech, via stretcher, room 230, with oxygen, with chart, em Report called to SENAIT Adam 16:02 Condition: good 16:02 Instructed on the need for admit, Demonstrated understanding of instructions. 16:21 Patient left the ED. em Signatures: Dispatcher [employer] EDMN Jaylen James David Nelson, DIE REPAIRER FORGING DIE REPAIRER FORGING em Carey Ruelas ds1 Gilbert Jennings MD MD rn Martinez, Maria mh5 Bal Emerson RN RN jd3 Corrections: (The following items were deleted from the chart) 06:10 05:19 BP 118 / 85; Pulse 113bpm; Resp 20bpm; Spontaneous; Pulse Ox 96% RA; jd3 j 07:20 04:55 Response: No adverse reaction jd3 jd3 07:22 06:45 Response: No adverse reaction j jd3 09:01 08:55 BP 137 / 79; Pulse 110bpm; Resp 40bpm; Pulse Ox 95% 2 lpm Nasal Cannula; [place] [id number]
--- NOTE | 2019-10-05 06:14 | EDPHYS ---
Physician Documentation [facility] Name: Donna Sinclair Age: 59 yrs Sex: Female : 1960 Arrival Date: 10/05/2019 Time: 03:15 Bed 19 Private MD: ED Physician Gilbert Jennings HPI: 10/05 05:53 This 59 yrs old Female presents to ER via Wheelchair with complaints of Chest rn Pain, Shortness Of Breath. 05:53 The patient or guardian reports chest pain that is located primarily in the anterior rn chest wall, right. Onset: last night. The pain radiates to right back. Associated signs and symptoms: Pertinent positives: cough, shortness of breath. The chest pain is described as sharp, stabbing. Duration: The patient or guardian reports multiple episodes, that are intermittent. Modifying factors: The symptoms are alleviated by nothing. the symptoms are aggravated by cough, deep breath, palpation of area. Severity of pain: At its worst the pain was moderate in the emergency department the pain is unchanged. The patient has not experienced similar symptoms in the past. Reports began with right sided chest pain, radiates to right back and kidney area, assoc with subjective fever and cough, no vomiting/diarrhea. Had surgery on foot 3 weeks ago. + hx of DVT/PE. On eliquis. No trauma. . Historical: - Allergies: 04:05 Savella; jd3 - Home Meds: 04:05 Aspirin Oral [Active]; Metoprolol Tartrate Oral [Active]; Tramadol Oral [Active]; Xanax jd3 Oral [Active]; - PMHx: 04:05 clot in lung; CVA; EDEMA; Fibromyalgia; Hypertension; jd3 - PSHx: 04:05 NECK SX; Appendectomy; Cholecystectomy; Tubal ligation; FOOT SX; jd3 - Immunization history:: Adult Immunizations up to date. - Social history:: Smoking status: Patient uses tobacco products, smokes one-half pack cigarettes per day, smokes one pack cigarettes per day. - Ebola Screening: : Patient negative for fever greater than or equal to 101.5 degrees Fahrenheit, and additional compatible Ebola Virus Disease symptoms. - Family history:: not pertinent. - Hospitalizations: : No recent hospitalization is reported. ROS: 05:53 Constitutional: + fever Eyes: Negative for injury, pain, redness, and discharge, Neck: rn Negative for injury, pain, and swelling, Cardiovascular: Negative for edema Respiratory: + cough and sob, + pleuritic chest pain Abdomen/GI: Negative for nausea, vomiting, diarrhea, and constipation, : + increased urinary frequency MS/Extremity: Negative for injury and deformity, Skin: Negative for injury, rash, and discoloration, Neuro: Negative for headache, weakness, numbness, tingling, and seizure. Exam: 05:56 Constitutional: This is a well developed, well nourished patient who is awake, alert, rn appears uncomfortable Head/Face: Normocephalic, atraumatic. Eyes: Pupils equal round and reactive to light, extra-ocular motions intact. Lids and lashes normal. Conjunctiva and sclera are non-icteric and not injected. Cornea within normal limits. Periorbital areas with no swelling, redness, or edema. ENT: dry MM Cardiovascular: Tachycardic, regular, no murmur Respiratory: + mild tachypnea, no retractions, diminished breath sounds bilateral bases Abdomen/GI: soft, + mild epigastric tenderness, no rebound Back: No spinal tenderness. No costovertebral tenderness. Full range of motion. MS/ Extremity: Pulses equal, no cyanosis. Neurovascular intact. Full, normal range of motion. Equal circumference. Neuro: Awake and alert, GCS 15, oriented to person, place, time, and situation. Cranial nerves II-XII grossly intact. Motor strength 5/5 in all extremities. Sensory grossly intact. Vital Signs: 03:35 BP 120 / 94; Pulse 129; Resp 28 S; Temp 100.1(O); Pulse Ox 93% on R/A; Weight 81.65 kg jd3 (R); Height 5 ft. 4 in. (162.56 cm) (R); Pain 10/10; 04:10 BP 122 / 80; Pulse 117; Resp 20 S; Pulse Ox 99% on Nebulizer Mask; jd3 05:19 BP 118 / 85; Pulse 113; Resp 20 S; Pulse Ox 96% on 2 lpm NC; jd3 06:09 BP 130 / 88; Pulse 117; Resp 26 S; Temp 98.8(O); Pulse Ox 96% on 2 lpm NC; jd3 07:00 BP 131 / 87; Pulse 115; Resp 25 S; Pulse Ox 97% on 2 lpm NC; jd3 08:03 BP 140 / 94; Pulse 107; Resp 24; Pulse Ox 97% on 2 lpm NC; em 08:55 BP 137 / 79; Pulse 110; Resp 40; Temp 98.1(O); Pulse Ox 95% on 2 lpm NC; mh5 03:35 Body Mass Index 30.90 (81.65 kg, 162.56 cm) jd3 MDM: 03:22 Patient medically screened. rn 06:08 Differential diagnosis: gastroesophageal reflux disease (GERD), pancreatitis, pleurisy, rn pneumonia, pneumothorax, pulmonary embolus. Data reviewed: vital signs, nurses notes, lab test result(s), EKG, radiologic studies, CT scan, and as a result, I will admit patient. Counseling: I had a detailed discussion with the patient and/or guardian regarding: the historical points, exam findings, and any diagnostic results supporting the discharge/admit diagnosis, lab results, radiology results, the need for further work-up and treatment in the hospital. 06:10 Response to treatment: the patient's symptoms have mildly improved after treatment, and rn as a result, I will admit patient. Admission orders: after a detailed discussion of the patient's condition and case, the admit orders are written by me. ED course: CT shows new PE right lower lung, in area that patient is hurting, is consistent with symptoms, only back on eliquis for 1 day, still tachypneic and tachycardic, oxygen 93% on RA, admitted to Dr. Joy for further care. . 10/05 03:29 Order name: Basic Metabolic Panel; Complete Time: 05:37 rn 10/05 03:29 Order name: CBC with Diff; Complete Time: 05:37 rn 10/05 03:29 Order name: LFT's; Complete Time: 05:37 rn 10/05 03:29 Order name: NT PRO-BNP; Complete Time: 05:37 rn 10/05 03:29 Order name: PT-INR; Complete Time: 05:37 rn 10/05 03:29 Order name: Troponin (emerg Dept Use Only); Complete Time: 05:37 rn 10/05 03:29 Order name: Urine Microscopic Only; Complete Time: 06:33 rn 10/05 03:29 Order name: Flu; Complete Time: 05:37 rn 10/05 06:07 Order name: Urine Dipstick--Ancillary (enter results); Complete Time: 06:33 eb 10/05 06:33 Order name: CBC with Automated Diff EDMS 10/05 06:33 Order name: CBC with Automated Diff EDMS 10/05 06:33 Order name: CKMB Creatine Kinase MB EDWY 10/05 06:33 Order name: CKMB Creatine Kinase MB EDWY 10/05 06:33 Order name: CKMB Creatine Kinase MB EDWY 10/05 03:29 Order name: XRAY Chest (1 view) 10/05 03:29 Order name: CT Chest For PE Angio rn 10/05 06:33 Order name: CKMB Creatine Kinase MB EDWY 10/05 06:33 Order name: Comprehensive Metabolic Panel EDWY 10/05 06:33 Order name: Comprehensive Metabolic Panel EDWY 10/05 06:33 Order name: Magnesium EDWY 10/05 06:33 Order name: Magnesium EDWY 10/05 06:33 Order name: Phosphorus EDWY 10/05 06:34 Order name: Phosphorus EDWY 10/05 06:34 Order name: Troponin I EDWY 10/05 06:34 Order name: Troponin I EDWY 10/05 06:34 Order name: Troponin I EDWY 10/05 06:34 Order name: Troponin I EDWY 10/05 06:48 Order name: Echo with Doppler EDWY 10/05 03:29 Order name: EKG; Complete Time: 03:30 rn 10/05 03:29 Order name: Cardiac monitoring; Complete Time: 03:47 rn 10/05 03:29 Order name: EKG - Nurse/Tech; Complete Time: 03:47 rn 10/05 03:29 Order name: IV Saline Lock; Complete Time: 03:47 rn 10/05 03:29 Order name: Labs collected and sent; Complete Time: 03:47 rn 10/05 03:29 Order name: O2 Per Protocol; Complete Time: 03:47 rn 10/05 03:29 Order name: O2 Sat Monitoring; Complete Time: 03:47 rn 10/05 03:29 Order name: Urine Dipstick-Ancillary (obtain specimen); Complete Time: 06:20 rn 10/05 06:33 Order name: Heart Healthy EDMS Administered Medications: 03:55 Drug: Xopenex (3) 1.25 mg Route: Inhalation; jd3 04:55 Follow up: Response: No adverse reaction jd3 03:56 Drug: morphine 4 mg Route: IVP; Site: right forearm; jd3 07:19 Follow up: Response: No adverse reaction; RASS: Alert and Calm (0) jd3 03:56 Drug: Zofran 4 mg Route: IVP; Site: right forearm; jd3 04:55 Follow up: Response: No adverse reaction jd3 05:47 Drug: morphine 4 mg Route: IVP; Site: right forearm; jd3 07:22 Follow up: Response: No adverse reaction; RASS: Alert and Calm (0) jd3 06:22 Drug: Lovenox 80 mg Route: Sub-Q; Site: abdomen; jd3 07:00 Follow up: Response: No adverse reaction jd3 Disposition: 10/05/19 06:13 Hospitalization ordered by Jose Raul Joy for Inpatient Admission. Preliminary diagnosis are Pulmonary embolism, Hypoxemia, Dyspnea, unspecified. - Bed requested for Telemetry/MedSurg (Inpatient). - Status is Inpatient Admission. em - Condition is Stable. - Problem is new. - Symptoms have improved. UTI on Admission? No Signatures: Dispatcher [employer] EDMS David Nelson, RADIOLOGY SPECIAL PROCEDURE TECH RADIOLOGY SPECIAL PROCEDURE TECH Gilbert Noland MD MD rn Davies, Jonathon, RN RN jd3 Botello, Elizabeth eb Corrections: (The following items were deleted from the chart) 05:56 05:53 Constitutional: + fever Eyes: Negative for injury, pain, redness, and discharge, rn Neck: Negative for injury, pain, and swelling, Cardiovascular: Negative for edema Respiratory: + cough and sob, + pleuritic chest pain Abdomen/GI: Negative for nausea, vomiting, diarrhea, and constipation, MS/Extremity: Negative for injury and deformity, Skin: Negative for injury, rash, and discoloration, Neuro: Negative for headache, weakness, numbness, tingling, and seizure, rn 09:22 06:13 Hospitalization Ordered by Jose Raul Joy MD for Inpatient Admission. Preliminary eb diagnosis is Pulmonary embolism; Hypoxemia; Dyspnea, unspecified. Bed requested for Telemetry/MedSurg (Inpatient). Status is Inpatient Admission. Condition is Stable. Problem is new. Symptoms have improved. UTI on Admission? No. rn 15:09 09:22 10/05/2019 06:13 Hospitalization Ordered by Jose Raul Joy MD for Inpatient eb Admission. Preliminary diagnosis is Pulmonary embolism; Hypoxemia; Dyspnea, unspecified. Bed requested for [facility] ER [facility]. Status is Inpatient Admission. Condition is Stable. Problem is new. Symptoms have improved. UTI on Admission? No. eb 16:21 15:09 10/05/2019 06:13 Hospitalization Ordered by Jose Raul Joy MD for Inpatient em Admission. Preliminary diagnosis is Pulmonary embolism; Hypoxemia; Dyspnea, unspecified. Bed requested for Telemetry/MedSurg (Inpatient). Status is Inpatient Admission. Condition is Stable. Problem is new. Symptoms have improved. UTI on Admission? No. eb
[2019-10-05 06:15] LABS: Urine Bacteria <20 /HPF (<20); Urine Culture Reflex Order NOT NEEDED; Urine RBC NONE SEEN /HPF (NONE SEEN)
[2019-10-05 06:17] LABS: Urine Blood 1+ (NEG); Urine Glucose NEGATIVE (NEG); Urine Protein NEGATIVE (NEG); Urine Specific Gravity 1.005 (1.005-1.030)
[2019-10-05] MEDS ORDERED: ENOXAPARIN 80 MG/0.8 ML SQ ONE (06:22)
[2019-10-05] MEDS ORDERED: ACETAMINOPHEN 500 MG TAB PO PRN (06:28)
[2019-10-05] MEDS ORDERED: ALBUTEROL 2.5 MG/3 ML NEB SOL NEB PRN (06:28)
--- NOTE | 2019-10-05 06:41 | P.HP ---
Certification for Inpatient Patient admitted to: Inpatient With expected LOS: >2 Midnights Practitioner: I am a practitioner with admitting privileges, knowledge of patient current condition, hospital course, and medical plan of care. Services: Services provided to patient in accordance with Admission requirements found in Title 42 Section 412.3 of the Code of Federal Regulations Patient History Date of Service: 10/05/19 Reason for admission: Shortness of breath and tachycardia History of Present Illness: 59 yrs old Female with past medical history of hypertension and anxiety came with complaints of Chest Pain and Shortness Of Breath. Chest pain that is located primarily in the anterior chest wall on the right side .The pain radiates to right back. Associated with cough, shortness of breath. The chest pain is described as sharp, stabbing, intermittent ,symptoms are aggravated by cough, deep breath, palpation of area. radiates to right back and kidney area, assoc with subjective fever and cough, no vomiting/diarrhea. Had surgery on foot 3 weeks ago. The patient has a cervical neck fusion surgery as well Patient has a history of DVT and PE , was restarted on eliquis recentl;y after surgery. The patient was assessed in the ER and was found to have PE and was admitted for further management Allergies milnacipran [From Savella] Allergy (Unverified 06/23/19 12:56) Unknown Home medications list reviewed: Yes Home Medications: Alprazolam 1 mg PO Q8HP PRN 05/19/16 Metoprolol Tartrate [Lopressor] 50 mg PO BID #60 tab 05/22/16 Azithromycin [Zithromax] 250 mg PO DAILY 06/23/19 Diclofenac Na [Voltaren D.R] 75 mg PO DAILY 06/23/19 Levothyroxine [Synthroid] 50 mcg PO [id number] 06/23/19 Meclizine HCl [Antivert] 12.5 mg PO PRN PRN 06/23/19 Oxaprozin [Daypro] 2 tab PO DAILY 06/23/19 predniSONE [Deltasone] 10 mg PO DAILY 06/23/19 - Past Medical/Surgical History Diabetic: No Past Medical History: Reviewed- Non-Contributory -: anxiety -: [place] -: HTN Past Surgical History: Reviewed- Non-Contributory -: NECK SX -: LEFT FOOT SX W/SCREWS AND PIN -: DAMIEN -: APPY -: TUBAL LIGATION -: PE - Family History Family History: Reviewed- Non-Contributory - Family History Mother -: Hypertension, Diabetes, Stroke, Cancer, Other (see notes) Notes: scolosis Father -: Hypertension, Cancer - Social History Smoking Status: Current every day smoker Alcohol use: Yes CD- Drugs: No Caffeine use: Yes Review of Systems 10-point ROS is otherwise unremarkable Physical Examination - Vital Signs Temperature: 98.1 F Blood Pressure: 133/78 Pulse: 112 Respirations: 20 Pulse Ox (%): 94 - Physical Exam General: Alert, Oriented x3, Moderate distress HEENT: Atraumatic, Normocephalic Neck: Supple, No Thyromegaly Respiratory: Diminished, Crackles/rales Cardiovascular: Normal pulses, Other (Tachycardia) Capillary refill: <2 Seconds Gastrointestinal: Soft and benign, W/out hepatosplenomegaly Musculoskeletal: No clubbing, No swelling, Other (Right lower extremity dressing intact) Integumentary: No rashes Neurological: Normal speech, Normal strength at 5/5 x4 extr Lymphatics: No axilla or inguinal lymphadenopathy External genitalia: Deferred Rectal: Deferred - Studies Laboratory Data (last 24 hrs) 10/05/19 03:42: PT 15.8 H, INR 1.35 10/05/19 03:42: WBC 14.6 H, Hgb 12.7, Hct 38.2, Plt Count 251 10/05/19 03:42: Sodium 136, Potassium 3.9, BUN 7, Creatinine 0.52 L, Glucose 134 H, Total Bilirubin 1.3 H, AST 18, ALT 36, Alkaline Phosphatase 168 H Microbiology Data (last 24 hrs): 10/05/19 03:42 Nasopharnyx Influenza Type A Antigen Screen - Final 10/05/19 03:42 Nasopharnyx Influenza Type B Antigen Screen - Final Assessment and Plan - Problems (Diagnosis) (1) Anxiety Current Visit: Yes Status: Chronic (2) Pulmonary embolism Current Visit: Yes Status: Acute (3) Chest pain Onset Date: 05/22/16 Current Visit: No Status: Acute Qualifiers: Chest pain type: unspecified Qualified Code(s): R07.9 - Chest pain, unspecified (4) Hypertension Onset Date: 05/22/16 Current Visit: No Status: Chronic Qualifiers: Hypertension type: essential hypertension Qualified Code(s): I10 - Essential (primary) hypertension - Plan Chest pain Acute pulmonary embolism Hypertension Anxiety Plan Monitor under telemetry Pain control Trend cardiac enzymes Lovenox Continue antianxiety medication Continue home medications and titrate as needed Will get echocardiogram GI/DVT prophylaxis - Advance Directives Does patient have a Living Will: No Does patient have a Durable POA for Healthcare: No Time Spent Managing Pts Care (In Minutes): 46
[2019-10-05] MEDS: IPRATROPIUM BROM 0.5MG/2.5ML NEB SCH ×3 (08:15→20:55)
[2019-10-05] MEDS ORDERED: ALBUTEROL 2.5 MG/3 ML NEB SOL ONE (08:16)
[2019-10-05] MEDS ORDERED: IPRATROPIUM BROM 0.5MG/2.5ML ONE ×2 (08:16→13:34)
[2019-10-05] MEDS ORDERED: NA CHLORIDE 0.9% 1,000 ML ONE (08:55)
[2019-10-05] MEDS ORDERED: METOPROLOL TAR 50 MG TAB ONE (08:55)
[2019-10-05] MEDS ORDERED: MORPHINE 2 MG/ML SYR ONE ×2 (08:57→13:12)
[2019-10-05] MEDS ORDERED: DICLOFENAC SOD D.R. 75 MG TAB PO SCH (09:00)
[2019-10-05] MEDS: NA CHLORIDE 0.9% 1,000 ML IV SCH ×2 (09:00→17:47)
[2019-10-05] MEDS ORDERED: ENOXAPARIN 100 MG/ML SYR SQ SCH ×2 (09:00→21:00)
[2019-10-05] MEDS: METOPROLOL TAR 50 MG TAB PO SCH ×2 (09:00→20:50)
[2019-10-05] MEDS ORDERED: MORPHINE 2 MG/ML SYR IV ONE (09:23)
[2019-10-05] MEDS ORDERED: ACETAMINOPHEN 500 MG TAB ONE (10:37)
[2019-10-05] MEDS ORDERED: ALPRAZOLAM 1 MG TABLET ONE (10:49)
[2019-10-05] MEDS: ALPRAZOLAM 1 MG TABLET PO PRN ×2 (10:59→20:50)
[2019-10-05 11:05] LABS: CKMB Creatine Kinase MB < 1.0 ng/mL (0.3-3.6); Troponin I < 0.02 ng/mL (0.0-0.045)
--- NOTE | 2019-10-05 13:30 | P.PN ---
Date of Service: 10/05/19 pt with hx of PE and dvt IN 07/26 started on Eliquis, s/p A/C held for 1 week prior to elective right foot surgery for persistent ankle fracture 09/10/19 then again held pre-reported urgent cervical fusion sx 09/22/19 now with new right PE even after resuming A/C . she is still c/w of pain despite pain meds . lovenox switched to Eliquis at PE dosage now -c/w pain meds - one xam with few wheeze, start duoneb prn
[2019-10-05] MEDS: NICOTINE 21 MG/PAT TD SCH (13:31)
[2019-10-05] MEDS: MORPHINE 2 MG/ML SYR IV PRN ×2 (15:55→20:50)
[2019-10-05 17:02] VITALS: BMI 29.9
[2019-10-05] MEDS: ENOXAPARIN 80 MG/0.8 ML SQ SCH (17:47)
[2019-10-05 17:56] LABS: CKMB Creatine Kinase MB < 1.0 ng/mL (0.3-3.6); Troponin I < 0.02 ng/mL (0.0-0.045)
[2019-10-05] MEDS: FAMOTIDINE 20 MG TAB PO SCH (20:50)
[2019-10-05] MEDS ORDERED: APIXABAN 5 MG TABLET PO SCH (21:00)
[2019-10-05] MEDS ORDERED: NA CHLORIDE 0.9% 250 ML ONE (22:06)
[2019-10-06] MEDS: MORPHINE 2 MG/ML SYR IV PRN ×5 (00:41→20:38)
[2019-10-06 01:31] LABS: CKMB Creatine Kinase MB < 1.0 ng/mL (0.3-3.6); Troponin I < 0.02 ng/mL (0.0-0.045)
[2019-10-06] MEDS: IPRATROPIUM BROM 0.5MG/2.5ML NEB SCH ×4 (02:00→19:55)
[2019-10-06] MEDS: NA CHLORIDE 0.9% 1,000 ML IV SCH (03:56)
[2019-10-06] MEDS: ALPRAZOLAM 1 MG TABLET PO PRN (04:33)
[2019-10-06] MEDS: ONDANSETRON 4 MG/2 ML VIAL IV PRN (04:36)
[2019-10-06] MEDS: ENOXAPARIN 80 MG/0.8 ML SQ SCH ×2 (05:40→18:06)
[2019-10-06] MEDS: LEVOTHYROXINE SOD 0.05 MG TABLET PO SCH (05:40)
[2019-10-06 06:43] LABS: Basophils % 0.6 % (0-1.3); Hematocrit 33.7 % (36.0-45.0); Lymphocytes % 16.8 % (15.3-44.8); MPV 9.5 fL (7.6-11.3); RBC Red Blood Cell Count 3.71 M/uL (3.86-4.86)
[2019-10-06 07:12] LABS: ALT/SGPT 29 U/L (12-78); AST/SGOT 15 U/L (15-37); Albumin 2.7 g/dL (3.4-5.0); Alkaline Phosphatase 136 U/L (45-117); BUN Blood Urea Nitrogen 10 mg/dL (7-18); Bicarbonate 25 mmol/L (21-32); Bilirubin Total 1.3 mg/dL (0.2-1.0); Glucose Level 82 mg/dL (74-106); Phosphorus 2.6 mg/dL (2.5-4.9); Potassium 3.8 mmol/L (3.5-5.1); Protein, Total 6.4 g/dL (6.4-8.2); Sodium Level 136 mmol/L (136-145)
[2019-10-06] MEDS ORDERED: POTASSIUM CL SA 10 MEQ TAB PO ONE (08:17)
--- NOTE | 2019-10-06 08:35 | RAD REPORT ---
EXAM DESCRIPTION: RAD - Chest Single View - 10/05/2019 3:53 am CLINICAL HISTORY: CHEST PAIN COMPARISON: None. TECHNIQUE: AP Chest. FINDINGS: Lung volumes are low. This is resulting in vascular crowding and atelectasis. No consolida tion. No pleural fluid or pneumothorax. Heart is normal in size. Bones and soft tissues appear normal. IMPRESSION: 1. Low lung volumes with atelectasis and vascular crowding. No acute disease. Electronically signed by: Mireille Vanessa DO 10/05/2019 4:23 AM STEREO EQUIPMENT SALESPERSON Due to temporary technical issues with the PACS/Fluency reporting system, reports are being signed by the in house radiologist as a courtesy to ensure prompt reporting. The interpreting radiologist is f ully responsible for the content of the report.
--- NOTE | 2019-10-06 08:54 | RAD REPORT ---
EXAM DESCRIPTION: CT - Chest For Pe Angio - 10/05/2019 6:43 am CLINICAL HISTORY: 59-year-old female with chest pain and dyspnea. Right-sided chest and back pain wi th cough since yesterday TECHNIQUE: Following the administration of intravenous contrast, multiple high-resolution axial imag es of the chest were performed followed by sagittal and coronal reconstructed images. No MIP images w ere performed. The CT study is performed according to ALARA (as low as reasonably achievable) or ALAR A/IMAGE GENTLY, with automatic adjustment of mA and/or kV according to patient size. Performed on: 10/05/2019 at 4:36 AM COMPARISON: Prior CTA chest performed on 09/10/2017 FINDINGS: There is satisfactory visualization and contrast opacification of pulmonary arteries. Th ere is some streak artifact on the images related to the dense bolus of contrast in the vessels resul ting in degradation of image quality. However, there does appear to be an intra-arterial filling defe ct within a subsegmental right posterior lower lobe pulmonary artery branch consistent with pulmonary embolism. No definite additional intra-arterial filling defects are appreciated. The thoracic aorta is normal in caliber and contour without evidence of aneurysm or dissection. The lungs are well expanded. There is patchy parenchymal opacification in the right lower lobe and to a lesser degree posterior left lower lobe. Findings may be due to a combination of fibrosis, atelect asis or possibly pulmonary infarction in the right lower lobe. A pneumonic infiltrate in the right lo wer lobe is not excluded. There are no pleural effusions. There is no pneumothorax. The heart is mildly enlarged. There is no pericardial effusion. There is no reflux of contrast into t he hepatic veins to suggest right heart strain. The RV/LV ratio is within normal limits. There are mi ld coronary artery calcifications. There is no evidence of hilar, mediastinal or axillary lymphadenopathy. There are mildly prominent ax illary lymph nodes, slightly more prominent on the left, similar when compared to the prior study. Th clark are likely reactive in nature. No acute osseous abnormality is identified. The visualized upper abdominal structures are unremarkable. IMPRESSION: 1. CT findings felt to be consistent with acute pulmonary embolism involving a posterior right lower lobe subsegmental pulmonary artery branch. 2. Patchy parenchymal opacification in the right lower lobe and to a lesser degree posterior left low er lobe. Findings may be due to a combination of fibrosis, atelectasis, pneumonic infiltrate or possi steve infarction particularly in the posterior right lower lobe. 3. Mild cardiomegaly. 4. Prominent axillary lymph nodes bilaterally slightly greater on the left, similar when compared to the prior study. These are likely reactive in nature. These critical findings were discussed with Dr. Jennings on 10/05/2019 at 6:06 AM central time Electronically signed by: Sherri Fox DO 10/05/2019 6:10 AM EYELET MACHINE OPERATOR Due to temporary technical issues with the PACS/Fluency reporting system, reports are being signed by the in house radiologist as a courtesy to ensure prompt reporting. The interpreting radiologist is f ully responsible for the content of the report.
[2019-10-06] MEDS: METOPROLOL TAR 50 MG TAB PO SCH ×2 (09:50→20:42)
[2019-10-06] MEDS: FAMOTIDINE 20 MG TAB PO SCH ×2 (09:51→20:43)
[2019-10-06] MEDS: NICOTINE 21 MG/PAT TD SCH (09:51)
--- NOTE | 2019-10-06 11:35 | P.PN ---
Subjective Date of Service: 10/06/19 Primary Care Provider: Dr. Bustamante Chief Complaint: Shortness of breath and tachycardia Subjective: Improving Physical Examination - Vital Signs Temperature: 98.5 F Blood Pressure: 133/76 Pulse: 95 Respirations: 19 Pulse Ox (%): 92 - Physical Exam General: Alert, In no apparent distress, Oriented x3, Cooperative HEENT: Atraumatic Neck: Supple Respiratory: Clear to auscultation bilaterally, Normal air movement Cardiovascular: Normal pulses, Regular rate/rhythm Gastrointestinal: Normal bowel sounds, No masses, No rebound, No guarding - Studies Medications List Reviewed: Yes Assessment & Plan Discharge Plan: Home Plan to discharge in: 48 Hours Physician Review Additional Text: Impression: Shortness of breath secondary to acute pulmonary embolism to the posterior right lower lobe subsegmental pulmonary artery branch Hypertension Depression with anxiety Hypothyroidism Recent multiple surgeries Plan: Shortness of breath secondary to acute pulmonary embolism to the posterior right lower lobe subsegmental pulmonary artery branch: Will continue with Lovenox at this time. Will transition to Eliquis. Patient previously on Eliquis but this medication was held due to recent surgeries. This is likely cause of her pulmonary embolism. Will continue monitor closely. Will obtain echocardiogram. Wean off oxygen. Will discuss case with pulmonology. Anticipate discharge in the next 24-48 hr. Hypertension: Continue with medication. Depression with anxiety: Continue with medication Hypothyroidism: Continue with medication. Recent multiple surgeries: Will have physical therapy assess ambulation. Will provide medication for pain. Time Spent Managing Pts Care (In Minutes): 55
[2019-10-06] MEDS ORDERED: TRAMADOL HCL 50 MG TAB PO PRN (12:04)
--- NOTE | 2019-10-06 15:36 | ECHO ---
HEIGHT: 5 ft 5 in WEIGHT: 180 lb 0 oz DATE OF STUDY: 10/06/[address]: Simeon Joy DO 2-DIMENSIONAL: YES M.MODE: YES DOPPLER: YES COLOR FLOW: YES TDS: NO PORTABLE: NO DEFINITY: NO BUBBLE STUDY: NO DIAGNOSIS: PULMONARY EMBOLISM CARDIAC HISTORY: CATHERIZATION: NO SURGERY: NO PROSTHETIC VALVE: NO PACEMAKER: NO MEASUREMENTS (cm) DIASTOLIC (NORMALS) SYSTOLIC (NORMALS) IVSd 1.0 (0.6-1.2) LA Diam 3.4 (1.9-4.0) LVEF 62% LVIDd 4.2 (3.5-5.7) LVIDs 2.8 (2.0-3.5) %FS 33% LVPWd 1.1 (0.6-1.2) Ao Diam 2.9 (2.0-3.7) 2 DIMENSIONAL ASSESSMENT: RIGHT ATRIUM: NORMAL LEFT ATRIUM: NORMAL RIGHT VENTRICLE: NORMAL LEFT VENTRICLE: NORMAL TRICUSPID VALVE: NORMAL MITRAL VALVE: NORMAL PULMONIC VALVE: NORMAL AORTIC VALVE: NORMAL PERICARDIAL EFFUSION: NONE AORTIC ROOT: NORMAL LEFT VENTRICULAR WALL MOTION: NORMAL DOPPLER/COLOR FLOW: NORMAL COMMENTS: NORMAL 2D ECHOCARDIOGRAM WITH DOPPLER. TECHNOLOGIST: Rosaline JOHNSON
[2019-10-07] MEDS: MORPHINE 2 MG/ML SYR IV PRN ×6 (00:58→21:35)
[2019-10-07] MEDS: IPRATROPIUM BROM 0.5MG/2.5ML NEB SCH ×4 (02:15→19:45)
[2019-10-07] MEDS: LEVOTHYROXINE SOD 0.05 MG TABLET PO SCH (05:06)
[2019-10-07] MEDS: ENOXAPARIN 80 MG/0.8 ML SQ SCH ×2 (05:06→18:06)
[2019-10-07 07:12] LABS: BUN Blood Urea Nitrogen 8 mg/dL (7-18); Bicarbonate 28 mmol/L (21-32); Glucose Level 91 mg/dL (74-106); Potassium 3.7 mmol/L (3.5-5.1); Sodium Level 138 mmol/L (136-145)
[2019-10-07] MEDS ORDERED: POTASSIUM CL SA 10 MEQ TAB PO ONE (09:00)
[2019-10-07] MEDS: NICOTINE 21 MG/PAT TD SCH (09:21)
[2019-10-07] MEDS: METOPROLOL TAR 50 MG TAB PO SCH ×2 (09:22→21:36)
[2019-10-07] MEDS: FAMOTIDINE 20 MG TAB PO SCH ×2 (09:22→21:36)
--- NOTE | 2019-10-07 10:09 | P.CNS ---
Date of Consult: 10/07/19 Primary Care Provider: Dr. Bustamante Chief Complaint: Shortness of breath and tachycardia History of Present Illness: Patient is 59 years of age and has multiple operations recently September 10 patient has some broken bolus insert followed by September 22 and neck fusion surgery came in with sudden onset of pain in her arms shortness of breath lori up in the middle of the night patient was taking Eliquis at home history of pulmonary emboli before still feeling weak, shortness of breath has not been ambulating Allergies milnacipran [From Savella] Allergy (Intermediate, Verified 10/05/19 16:55) Hives/Rash Home Medications: Levothyroxine [Synthroid*] 50 mcg PO [id number] 06/23/19 Meclizine HCl [Antivert*] 12.5 mg PO PRN PRN 06/23/19 Oxaprozin [Daypro] 2 tab PO DAILY 06/23/19 predniSONE [Prednisone*] 10 mg PO DAILY 06/23/19 ALPRAZolam [Xanax*] 1 mg PO TID PRN 10/05/19 Docusate [Colace Cap*] 100 mg PO BID 10/05/19 Hydrocodone 7.5/APAP 325 [[place] 7.5/325 mg*] 1 tab PO Q6H PRN 10/05/19 Methocarbamol [Robaxin*] 750 mg PO TID PRN 10/05/19 Tramadol HCl [Ultram] 50 mg PO Q4HP PRN 10/05/19 Apixaban [Eliquis] 5 mg PO BID #69 tablet 10/07/19 Famotidine [Pepcid*] 20 mg PO BID #60 tab 10/07/19 Levofloxacin [Levaquin] 500 mg PO DAILY #6 tablet 10/07/19 Nicotine [Nicoderm*] 21 mg TD DAILY #21 patch.[email or web address] 10/07/19 - Past Medical/Surgical History Diabetic: No -: anxiety -: [place] -: HTN -: History of pulmonary emboli -: NECK SX -: LEFT FOOT SX W/SCREWS AND PIN -: DAMIEN -: APPY -: TUBAL LIGATION -: PE - Family History Mother Medical History: Hypertension, Diabetes, Stroke, Cancer, Other (see notes) Notes: scolosis Father Medical History: Hypertension, Cancer - Social History Smoking Status: Current every day smoker Alcohol use: No CD- Drugs: No Caffeine use: Yes Place of Residence: Home Review of Systems General: Weakness Respiratory: Shortness of Breath Musculoskeletal: Leg Pain, Foot Pain Physical Examination Temp Pulse Resp BP Pulse Ox 97.1 F 85 16 116/64 96 10/07/19 00:00 10/07/19 09:22 10/07/19 00:00 10/07/19 09:22 10/07/19 00:00 General: Alert, Moderate distress HEENT: Atraumatic Neck: Supple Respiratory: Clear to auscultation bilaterally, Diminished Cardiovascular: No edema, Regular rate/rhythm, Normal S1 S2 Gastrointestinal: Normal bowel sounds, Soft and benign - Problems (1) Pulmonary embolism Current Visit: Yes Status: Acute Plan: Patient is 59 years of age admitted with sudden onset of shortness of breath, body aches current chest x-ray shows elevated right hemidiaphragm, possible atelectasis or pneumonia white count was elevated. He said that 2 redo surgeries including the right foot in the neck stroke pulmonary embolism patient was taking Eliquis at home he does have a right lower lobe pulmonary embolism patient's white count is declining hypoxic chemistries unremarkable no culture sent patient is not doing pretty well right now. I suggest continue monitoring may need some physical therapy continue with Lovenox for now on changed to p.o. antibiotics echocardiogram is normal with possible underlying COPD patient is an active smoker as some prednisone
--- NOTE | 2019-10-07 10:11 | P.DS ---
Admission Date: 10/05/19 Discharge Date: 10/07/19 Primary Care Provider: Dr. Bustamante Disposition: DC HOME/HOME HEALTH CARE Discharge Condition: GOOD Reason for Admission: Shortness of breath and tachycardia Hospital Course: The patient weighs history of hypertension, recently diagnosed pulmonary emboli seen 2 months ago status post multiple surgeries in the interim including an elective right ankle surgery 6 weeks ago and reported urgent cervical laminectomy 3 weeks ago; admitted for right-sided chest pain with shortness of breath. CT shows evidence of right pulmonary artery embolus. The patient continued to have persistent pain although O2 sats was persistent above 90s on room air. She is still complaining of significant pain symptoms that controlled with pain medications. Review of CT shows possibility of superimposed pneumonia. Patient was started on empirical antibiotics with Levaquin. Need full anticoagulation for over 1 year to lifelong has been discussed . She will also follow with her restaurant hospitality manager at [facility] . She will be discharged home today to follow with her primary care physician in 1 week. Patient strongly recommended to avoid stopping the anticoagulation in the future. Vital Signs/Physical Exam: Temp Pulse Resp BP Pulse Ox 97.1 F 85 16 116/64 96 10/07/19 00:00 10/07/19 09:22 10/07/19 00:00 10/07/19 09:22 10/07/19 00:00 General: Alert, In no apparent distress, Oriented x3 HEENT: Atraumatic, Normocephalic Neck: Supple, 2+ carotid pulse no bruit, Other (anterior cervical dsg) Respiratory: Normal air movement, Diminished (right base) Cardiovascular: No edema, Normal pulses, Regular rate/rhythm, Normal S1 S2 Gastrointestinal: Normal bowel sounds, Soft and benign Musculoskeletal: No clubbing, Cast in place (right ankle ) Neurological: Normal speech, Normal strength at 5/5 x4 extr, Normal tone Laboratory Data at Discharge: WBC 11.7 K/uL (4.3-10.9) H D 10/06/19 05:15 Hgb 11.0 g/dL (12.0-15.0) L 10/06/19 05:15 Hct 33.7 % (36.0-45.0) L 10/06/19 05:15 Plt Count 218 K/uL (152-406) 10/06/19 05:15 PT 15.8 SECONDS (9.5-12.5) H 10/05/19 03:42 INR 1.35 10/05/19 03:42 Sodium 138 mmol/L (136-145) 10/07/19 05:26 Potassium 3.7 mmol/L (3.5-5.1) 10/07/19 05:26 BUN 8 mg/dL (7-18) 10/07/19 05:26 Creatinine 0.50 mg/dL (0.55-1.3) L 10/07/19 05:26 Glucose 91 mg/dL (74-106) 10/07/19 05:26 Phosphorus 2.6 mg/dL (2.5-4.9) 10/06/19 05:15 Magnesium 2.0 mg/dL (1.8-2.4) 10/06/19 05:15 Total Bilirubin 1.3 mg/dL (0.2-1.0) H 10/06/19 05:15 AST 15 U/L (15-37) 10/06/19 05:15 ALT 29 U/L (12-78) 10/06/19 05:15 Alkaline Phosphatase 136 U/L (45-117) H 10/06/19 05:15 Troponin I < 0.02 ng/mL (0.0-0.045) 10/06/19 00:41 Home Medications: Levothyroxine [Synthroid*] 50 mcg PO [id number] 06/23/19 Meclizine HCl [Antivert*] 12.5 mg PO PRN PRN 06/23/19 Oxaprozin [Daypro] 2 tab PO DAILY 06/23/19 predniSONE [Prednisone*] 10 mg PO DAILY 06/23/19 ALPRAZolam [Xanax*] 1 mg PO TID PRN 10/05/19 Docusate [Colace Cap*] 100 mg PO BID 10/05/19 Hydrocodone 7.5/APAP 325 [[place] 7.5/325 mg*] 1 tab PO Q6H PRN 10/05/19 Methocarbamol [Robaxin*] 750 mg PO TID PRN 10/05/19 Tramadol HCl [Ultram] 50 mg PO Q4HP PRN 10/05/19 Apixaban [Eliquis] 5 mg PO BID #69 tablet 10/07/19 Famotidine [Pepcid*] 20 mg PO BID #60 tab 10/07/19 Levofloxacin [Levaquin] 500 mg PO DAILY #6 tablet 10/07/19 Nicotine [Nicoderm*] 21 mg TD DAILY #21 patch.td24 10/07/19 New Medications: Apixaban [Eliquis] 5 mg PO BID #69 tablet Famotidine [Pepcid*] 20 mg PO BID #60 tab Levofloxacin [Levaquin] 500 mg PO DAILY #6 tablet Nicotine [Nicoderm*] 21 mg TD DAILY #21 patch.td24 Patient Discharge Instructions: -follow with your PCP in 1 week. -continue pain medication regime as previously being done Diet: Low sodium Activity: Weight bearing as tolerated Time spent managing pt's care (in minutes): 35
--- NOTE | 2019-10-07 10:17 | P.PN ---
Subjective Date of Service: 10/07/19 Primary Care Provider: Dr. Bustamante Chief Complaint: Shortness of breath and tachycardia Subjective: No new changes, No C/O voiced (still pain over right flank , feels going to the kidney) Physical Examination - Vital Signs Temperature: 97.1 F Blood Pressure: 116/64 Pulse: 85 Respirations: 18 Pulse Ox (%): 98 - Physical Exam General: Alert, Oriented x3 HEENT: Atraumatic, Normocephalic Respiratory: Normal air movement, Diminished Cardiovascular: No edema, Regular rate/rhythm Musculoskeletal: No clubbing, No swelling, Cast in place - Studies Medications List Reviewed: Yes Assessment & Plan Physician Review Additional Text: Impression: Shortness of breath secondary to acute pulmonary embolism to the posterior right lower lobe subsegmental pulmonary artery branch Hypertension Depression with anxiety Hypothyroidism Recent multiple surgeries Plan: doing well , still not needing 02 despite requesting for it -she is also requesting transfer to [facility] for her workup of prior splenic vein DVT diagnosed 3 konths ago and requiring start of Elioquis which was stopped multiple times for her two surgeries since then - she ais also requesting LE Doppler US to r/o DVT . I explained in detail on the non significance of LE US as she is already on tx for PE as well as no need for transfer as no further workup needed now for her PE risk. I explaiend to her that this is not failure of Eliquis anticoagulation due to numerous over 1 week stoppage of the meds since last 3 months -area of pain correspond to right lower lobe PE vs pna , will add abx regime , advised to carmela/w Reyes for over 1 year before deciding with data sciences director -pt was previously ambulating with scooter at home prior to admit but feels pain limiting her activity now , advised to continue ambulation - follow plan for dc home today
[2019-10-07] MEDS: Levofloxacin500mg IV 500 MG/100 ML BAG IV SCH (10:25)
[2019-10-07] MEDS: predniSONE 20 MG TAB PO SCH ×2 (10:26→21:36)
[2019-10-07] MEDS: HYDROCODONE/APAP 7.5/325 MG TAB PO PRN (11:57)
[2019-10-08] MEDS: IPRATROPIUM BROM 0.5MG/2.5ML NEB SCH ×4 (02:05→20:00)
[2019-10-08] MEDS: MORPHINE 2 MG/ML SYR IV PRN ×4 (02:19→21:00)
[2019-10-08] MEDS: LEVOTHYROXINE SOD 0.05 MG TABLET PO SCH (06:43)
[2019-10-08] MEDS: ENOXAPARIN 80 MG/0.8 ML SQ SCH (06:43)
[2019-10-08 06:53] LABS: BUN Blood Urea Nitrogen 9 mg/dL (7-18); Bicarbonate 29 mmol/L (21-32); Glucose Level 120 mg/dL (74-106); Sodium Level 140 mmol/L (136-145)
[2019-10-08] MEDS: FAMOTIDINE 20 MG TAB PO SCH ×2 (09:19→21:03)
[2019-10-08] MEDS: NICOTINE 21 MG/PAT TD SCH (09:19)
[2019-10-08] MEDS: predniSONE 20 MG TAB PO SCH (09:19)
[2019-10-08] MEDS: METOPROLOL TAR 50 MG TAB PO SCH ×2 (09:19→21:03)
[2019-10-08] MEDS: Levofloxacin500mg IV 500 MG/100 ML BAG IV SCH (09:20)
[2019-10-08] MEDS ORDERED: BENZONATATE 100 MG CAP PO PRN (09:25)
--- NOTE | 2019-10-08 12:03 | P.PN ---
Subjective Date of Service: 10/08/19 Primary Care Provider: Dr. Bustamante Chief Complaint: Pulmonary embolism No changes still short of breath has some cough still hurting in her chest Review of Systems General: Weakness Respiratory: Shortness of Breath Cardiovascular: Chest Pain Physical Examination - Vital Signs Temperature: 97.8 F Blood Pressure: 132/76 Pulse: 72 Respirations: 18 Pulse Ox (%): 96 - Physical Exam General: Alert, Oriented x3, Mild distress Neck: Supple, No Thyromegaly Cardiovascular: No edema, Regular rate/rhythm Gastrointestinal: Normal bowel sounds, Soft and benign - Studies Medications List Reviewed: Yes Assessment & Plan - Problems (Diagnosis) (1) Pulmonary embolism Current Visit: Yes Status: Acute Plan: Patient admitted with DVT PE here to recent operations . history of pulmonary embolism recurrent she will need lifelong anticoagulation traveler changer to Eliquis chest CT scan shows a possible right lower lobe pneumonia are an infiltrate change to p.o. levofloxacin consider rehab check CBC probably has underlying COPD the less some chest discomfort consider rehab evaluation patient is hypoxic of ordered room-air ABGs Qualifiers: Pulmonary embolism type: multiple subsegmental (without acute cor pulmonale) Qualified Code(s): I26.94 - Multiple subsegmental pulmonary emboli without acute cor pulmonale Physician Review Additional Text: Impression: Shortness of breath secondary to acute pulmonary embolism to the posterior right lower lobe subsegmental pulmonary artery branch Hypertension Depression with anxiety Hypothyroidism Recent multiple surgeries Plan: doing well , still not needing 02 despite requesting for it -she is also requesting transfer to 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 I explained in detail on the non significance of LE US as she is already on tx for PE as well as no need for transfer as no further workup needed now for her PE risk. I explaiend to her that this is not failure of Eliquis anticoagulation due to numerous over 1 week stoppage of the meds since last 3 months -area of pain correspond to right lower lobe PE vs pna , will add abx regime , advised to carmela/w Reyes for over 1 year before deciding with product support engineer -pt was previously ambulating with scooter at home prior to admit but feels pain limiting her activity now , advised to continue ambulation - follow plan for dc home today
[2019-10-08 13:52] LABS: Arterial Blood Carboxyhemoglob 0.9 % (0-1.5); Blood Gas Oxyhemoglobin 87.8 % (94-97); Blood O2 Saturation 89.1 % (92-98.5)
[2019-10-08] MEDS: ONDANSETRON 4 MG/2 ML VIAL IV PRN (16:02)
[2019-10-08 18:45] LABS: Basophils % 0.2 % (0-1.3); Hematocrit 34.8 % (36.0-45.0); Lymphocytes % 13.2 % (15.3-44.8); MPV 9.2 fL (7.6-11.3); RBC Red Blood Cell Count 3.88 M/uL (3.86-4.86)
[2019-10-08 18:51] LABS: Protime INR 1.1
[2019-10-08] MEDS: FORMOTEROL FUMARATE 20 MCG/2 ML VIAL.NEB NEB SCH (20:00)
[2019-10-08] MEDS: predniSONE 10 MG TAB PO SCH (21:02)
[2019-10-08] MEDS: APIXABAN 5 MG TABLET PO SCH (21:03)
[2019-10-08] MEDS: ALPRAZOLAM 1 MG TABLET PO PRN (21:03)
[2019-10-08] MEDS: DOCUSATE NA 100 MG CAP PO SCH (21:04)
[2019-10-09] MEDS: MORPHINE 2 MG/ML SYR IV PRN ×2 (00:41→09:35)
[2019-10-09] MEDS: IPRATROPIUM BROM 0.5MG/2.5ML NEB SCH ×3 (01:35→13:45)
[2019-10-09] MEDS: LEVOTHYROXINE SOD 0.05 MG TABLET PO SCH (05:08)
[2019-10-09] MEDS: FORMOTEROL FUMARATE 20 MCG/2 ML VIAL.NEB NEB SCH (07:55)
[2019-10-09] MEDS: DOCUSATE NA 100 MG CAP PO SCH (09:29)
[2019-10-09] MEDS: FAMOTIDINE 20 MG TAB PO SCH (09:29)
[2019-10-09] MEDS: METOPROLOL TAR 50 MG TAB PO SCH (09:29)
[2019-10-09] MEDS: predniSONE 10 MG TAB PO SCH (09:29)
[2019-10-09] MEDS: NICOTINE 21 MG/PAT TD SCH (09:29)
[2019-10-09] MEDS: APIXABAN 5 MG TABLET PO SCH (09:29)
[2019-10-09 13:10] VITALS: O2SAT 99
[2019-10-09] MEDS: HYDROCODONE/APAP 7.5/325 MG TAB PO PRN (13:21)
[2019-10-09 13:32] VITALS: BP 138/81; TEMP 97.3
--- NOTE | 2019-10-09 14:26 | P.DS ---
Admission Date: 10/05/19 Discharge Date: 10/09/19 Primary Care Provider: Dr. Bustamante Disposition: ROUTINE DISCHARGE Discharge Condition: GOOD Reason for Admission: Pulmonary embolism Consultations: Pulmonology-Dr. Cole Procedures: ECHO: Normal ejection fraction CT Scan: FINDINGS: There is satisfactory visualization and contrast opacification of pulmonary arteries. There is some streak artifact on the images related to the dense bolus of contrast in the vessels resulting in degradation of image quality. However, there does appear to be an intra-arterial filling defect within a subsegmental right posterior lower lobe pulmonary artery branch consistent with pulmonary embolism. No definite additional intra-arterial filling defects are appreciated. The thoracic aorta is normal in caliber and contour without evidence of aneurysm or dissection. The lungs are well expanded. There is patchy parenchymal opacification in the right lower lobe and to a lesser degree posterior left lower lobe. Findings may be due to a combination of fibrosis, atelectasis or possibly pulmonary infarction in the right lower lobe. A pneumonic infiltrate in the right lower lobe is not excluded. There are no pleural effusions. There is no pneumothorax. The heart is mildly enlarged. There is no pericardial effusion. There is no reflux of contrast into the hepatic veins to suggest right heart strain. The RV/ LV ratio is within normal limits. There are mild coronary artery calcifications. There is no evidence of hilar, mediastinal or axillary lymphadenopathy. There are mildly prominent axillary lymph nodes, slightly more prominent on the left, similar when compared to the prior study. These are likely reactive in nature. No acute osseous abnormality is identified. The visualized upper abdominal structures are unremarkable. IMPRESSION: 1. CT findings felt to be consistent with acute pulmonary embolism involving a posterior right lower lobe subsegmental pulmonary artery branch. 2. Patchy parenchymal opacification in the right lower lobe and to a lesser degree posterior left lower lobe. Findings may be due to a combination of fibrosis, atelectasis, pneumonic infiltrate or possibly infarction particularly in the posterior right lower lobe. 3. Mild cardiomegaly. 4. Prominent axillary lymph nodes bilaterally slightly greater on the left, similar when compared to the prior study. These are likely reactive in nature. Medical Problem List: Shortness of breath secondary to acute pulmonary embolism to the posterior right lower lobe subsegmental pulmonary artery branch complicated with pneumonia Hypertension Depression with anxiety Hypothyroidism Recent multiple surgeries Brief History of Present Illness: 59-year-old female presented to the emergency room with shortness of breath. Patient found to have pulmonary embolism. Patient with recent surgeries to her neck and foot. 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 She had been on anti coagulation therapy but this had been stopped for short period due to surgery. Hospital Course: Patient presented with shortness of breath secondary to acute pulmonary embolism to the right posterior lobe of the lung. Patient was treated in the course of her stay. Patient previously taking Eliquis for splenic embolism. She had 2 surgeries over the past several weeks. This required her to stop Eliquis for a short period of time. This was coordinated with her neurosurgeon and strip stamp straightener. She was also to found to have pneumonia. The patient was treated with antibiotic therapy and anti coagulation therapy. Her condition improved. Echocardiogram unremarkable. Pulmonology was consulted. At discharge she is without significant shortness of breath. Patient no longer requires oxygen. At discharge patient will continue with Levaquin 500 mg daily for total of 7 days. Tessalon Perles 100 mg 3 times a day as needed for cough and Pro air 2 puffs 3 times a day as needed for shortness of breath will be provided. Recommend follow up with pulmonology in 1-2 weeks to follow up this hospitalization. At discharge she will continue with her anti coagulation therapy Eliquis 5 mg twice daily. Recommend to follow up with her strip stamp straightener for further recommendations. Education on pulmonary embolism, Eliquis provided. I was able to leave a message with her strip stamp straightener prior to discharge. For her recent surgeries, patient will continue with physical therapy and home health. At discharge fall precautions in place. At discharge she will continue with her regimen of pain medication. Patient with hypertension. Medication was started during the course of her stay. At discharge she will continue with medication metoprolol 25 mg 1 pill twice daily. Patient with depression and anxiety. At discharge she will continue with her medication Xanax 1 mg 3 times a day as needed. Patient with hypothyroidism. At discharge she will continue with her medication levothyroxine 50 mcg daily. Vital Signs/Physical Exam: Temp Pulse Resp BP Pulse Ox 97.3 F 70 20 138/81 99 10/09/19 12:00 10/09/19 12:00 10/09/19 12:00 10/09/19 12:00 10/09/19 12:00 General: Alert, In no apparent distress, Oriented x3, Cooperative HEENT: Atraumatic Neck: Supple Respiratory: Clear to auscultation bilaterally, Normal air movement Cardiovascular: Normal pulses, Regular rate/rhythm Gastrointestinal: Normal bowel sounds, Soft and benign, Non-distended, No masses , No rebound, No guarding Neurological: Normal speech, Normal strength at 5/5 x4 extr, Normal tone Laboratory Data at Discharge: WBC 7.7 K/uL (4.3-10.9) D 10/08/19 18:30 Hgb 11.6 g/dL (12.0-15.0) L 10/08/19 18:30 Hct 34.8 % (36.0-45.0) L 10/08/19 18:30 Plt Count 297 K/uL (152-406) D 10/08/19 18:30 PT 12.9 SECONDS (9.5-12.5) H 10/08/19 18:30 INR 1.10 10/08/19 18:30 APTT 27.1 SECONDS (24.3-36.9) 10/08/19 18:30 Sodium 140 mmol/L (136-145) 10/08/19 05:51 Potassium 4.0 mmol/L (3.5-5.1) 10/08/19 05:51 BUN 9 mg/dL (7-18) 10/08/19 05:51 Creatinine 0.38 mg/dL (0.55-1.3) L 10/08/19 05:51 Glucose 120 mg/dL (74-106) H 10/08/19 05:51 Phosphorus 2.6 mg/dL (2.5-4.9) 10/06/19 05:15 Magnesium 2.0 mg/dL (1.8-2.4) 10/06/19 05:15 Total Bilirubin 1.3 mg/dL (0.2-1.0) H 10/06/19 05:15 AST 15 U/L (15-37) 10/06/19 05:15 ALT 29 U/L (12-78) 10/06/19 05:15 Alkaline Phosphatase 136 U/L (45-117) H 10/06/19 05:15 Troponin I < 0.02 ng/mL (0.0-0.045) 10/06/19 00:41 Home Medications: RX: Levothyroxine [Synthroid*] 50 mcg PO [id number] 06/23/19 RX: Meclizine HCl [Antivert*] 12.5 mg PO PRN PRN 06/23/19 RX: Oxaprozin [Daypro] 2 tab PO DAILY 06/23/19 RX: predniSONE [Prednisone*] 10 mg PO DAILY 06/23/19 RX: ALPRAZolam [Xanax*] 1 mg PO TID PRN 10/05/19 RX: Docusate [Colace Cap*] 100 mg PO BID 10/05/19 RX: Hydrocodone 7.5/APAP 325 [[place] 7.5/325 mg*] 1 tab PO Q6H PRN 10/05/19 RX: Methocarbamol [Robaxin*] 750 mg PO TID PRN 10/05/19 RX: Tramadol HCl [Ultram] 50 mg PO Q4HP PRN 10/05/19 Apixaban [Eliquis] 5 mg PO BID #69 tablet 10/07/19 Levofloxacin [Levaquin] 500 mg PO DAILY #6 tablet 10/07/19 RX: Famotidine [Pepcid*] 20 mg PO BID #60 tab 10/07/19 RX: Nicotine [Nicoderm*] 21 mg TD DAILY #21 patch.td24 10/07/19 Albuterol Sulfate [Proair Hfa] 8.5 gm IH TID PRN #1 hfa.aer.ad 10/09/19 RX: Benzonatate [Tessalon Perle*] 200 mg PO Q8H PRN #30 cap 10/09/19 RX: Metoprolol Tartrate [Lopressor*] 50 mg PO BID #60 tab 10/09/19 New Medications: Albuterol Sulfate [Proair Hfa] 8.5 gm IH TID PRN #1 hfa.aer.ad PRN Reason: Shortness Of Breath Apixaban [Eliquis] 5 mg PO BID #69 tablet Levofloxacin [Levaquin] 500 mg PO DAILY #6 tablet RX: Benzonatate [Tessalon Perle*] 200 mg PO Q8H PRN #30 cap PRN Reason: Cough RX: Famotidine [Pepcid*] 20 mg PO BID #60 tab RX: Metoprolol Tartrate [Lopressor*] 50 mg PO BID #60 tab RX: Nicotine [Nicoderm*] 21 mg TD DAILY #21 patch.td24 Patient Discharge Instructions: 1. Recommend follow up with her PCP within 1 week. 2. Patient presented with shortness of breath secondary to acute pulmonary embolism to the right posterior lobe of the lung. Patient was treated in the course of her stay. Patient previously taking Eliquis for splenic embolism. She had 2 surgeries over the past several weeks. This required her to stop Eliquis for a short period of time. This was coordinated with her neurosurgeon and strip stamp straightener. She was also to found to have pneumonia. The patient was treated with antibiotic therapy and anti coagulation therapy. Her condition improved. Echocardiogram unremarkable. Pulmonology was consulted. At discharge she is without significant shortness of breath. Patient no longer requires oxygen. At discharge patient will continue with Levaquin 500 mg daily for total of 7 days. Tessalon Perles 100 mg 3 times a day as needed for cough and Pro air 2 puffs 3 times a day as needed for shortness of breath will be provided. Recommend follow up with pulmonology in 1-2 weeks to follow up this hospitalization. At discharge she will continue with her anti coagulation therapy Eliquis 5 mg twice daily. Recommend to follow up with her strip stamp straightener for further recommendations. Education on pulmonary embolism, Eliquis provided. I was able to leave a message with her strip stamp straightener prior to discharge. 3. For her recent surgeries , patient will continue with physical therapy and home health. At discharge fall precautions in place. At discharge she will continue with her regimen of pain medication. 4. Patient with hypertension. Medication was started during the course of her stay. At discharge she will continue with medication metoprolol 25 mg 1 pill twice daily. 5. Patient with depression and anxiety. At discharge she will continue with her medication Xanax 1 mg 3 times a day as needed. 6. Patient with hypothyroidism. At discharge she will continue with her medication levothyroxine 50 mcg daily. Diet: Low sodium Activity: Weight bearing as tolerated Time spent managing pt's care (in minutes): 55
== END 2019-10-09 15:56 | disposition home health service (06) | DRG 175 ==
LOC: ER 03:14 → ERHOLD 07:01 → 2ND 16:15
PROVIDERS: ADMIT Family Medicine; ATTEND Family Medicine
DX: I26.99 Other pulmonary embolism without acute cor pulmonale (principal); J18.9 Pneumonia, unspecified organism; I10 Essential (primary) hypertension; F41.8 Other specified anxiety disorders; E03.9 Hypothyroidism, unspecified; I25.2 Old myocardial infarction
CPT/HCPCS: 36415; 71045; 71275; 80048; 80053; 80076; 81003; 81015; 82553; 82805; 83735; 83880; 84100; 84145; 84484; 85025; 85610; 85730; 87804; 93005; 93306; 94640; 94760; 96372; 96374; 96375; 97110; 97112; 97116; 97161; 97530; 99285; J1650; J2270; J2405; J7030; J7512; Q9967

== ENCOUNTER 2023-05-02 23:00 | Observation (INO) | payer OTHER ==
--- OUTSIDE RECORDS SUMMARY | 2023-05-02 23:03 | XMS REPORT | Clinical Summary ---
:1960 Author Organization [facility] MD [facility] Address [address] [place] [address] Care Team Providers Name Role Phone Beto Mcdonough MD Primary Care Provider Chip Patel Unavailable Kirt Avitia MD PhD Unavailable Lola Lan MD Unavailable Allergies No known active allergies Medications Medication Sig Dispensed Refills Start Date End Date Status diclofenac sodium Take 75 mg by 0 Active (VOLTAREN) 75 mg EC mouth 2 (two) tablet times a day as needed. meclizine (ANTIVERT) 25 Take 25 mg by 0 Active mg tablet mouth 2 (two) times a day as needed for dizziness. traMADol (ULTRAM) 50 mg Take 50 mg by 0 Active tablet mouth every 8 (eight) hours as needed for moderate pain. losartan (COZAAR) 25 mg Take 25 mg by 0 Active tablet mouth twice daily. apixaban (ELIQUIS) 5 mg Take 5 mg by 0 Active tablet mouth every 12 (twelve) hours. promethazine (PHENERGAN) Take 25 mg by 0 Active 25 mg tablet mouth 2 (two) times a day as needed for nausea. ALPRAZolam (XANAX) 1 mg Take 1 mg by 0 Active tablet mouth twice daily. folic Take 1 tablet 0 Active acid/multivit-min/lutein by mouth daily. (CENTRUM SILVER ORAL) UNABLE TO FIND Med Name: CBD 0 A ctive oil for joint pain dilTIAZem (CARDIZEM SR) TAKE 1 CAPSULE 0 04/05/2021 Active 120 mg 12 hr capsule BY MOUTH EVERY DAY thyroid (ARMOUR THYROID) Take 30 mg by 0 Active 30 mg tab tablet mouth daily. meloxicam (MOBIC) 15 mg Take 15 mg by 0 Active tablet mouth 2 (two) times a day as needed. 1/2 tab bid prn hydrOXYchloroQUINE Take 200 mg by 0 Active (PLAQUENIL) 200 mg tablet mouth twice daily. Active Problems Problem Noted Date Hypothyroidism 04/15/2021 Hypertension 04/15/2021 Lymphadenopathy 04/13/2021 Lymphoproliferative disease 03/15/2021 Surgical History Surgery Date Site/Laterality Comments LYMPH NODE BIOPSY 11/08/2020 - 12/05/2020 BONE MARROW BIOPSY W/ 02/05/2021 - ASPIRATION 03/07/2021 NECK SURGERY 12/06/2018 - 01/05/2019 FOOT SURGERY 09/07/2019 - Right 10/07/2019 VT BX/EXC LYMPH NODE OPEN 04/16/2021 Axilla/Right Proced ure: BIOPSY OR SUPERFICIAL EXCISION OF SUPE RFICIAL LYMPH NODE, righ t axilla,; Surgeon : Aniya Ibrahim MD; Location: MAIN O R; Service: SURG ON C - GENERAL VT ULTRASONIC GUIDANCE 04/16/2021 Axilla/Right Procedure : INTROPERATIVE INTRAOPERATIVE ULTRASOUND by MAGNUS DE LUNA; Surgeon: Aniya Ibrahim MD; Locat ion: MAIN OR; Service: EL[facility] G ONC - GENERAL Medical History Medical History Date Comments Hypertension 2015 Personal history of stroke 2016 Irregular heart beat 2019 Migraine 2020 starting getting the m frequently this year Traumatic brain injury 2016 some brains cells on right side due to stroke Unspecified lump in unspecified breast 2019 L ymphnodes enlarged Pneumonia 2003 get it almost ever 6 months Pulmonary embolism 2007 last ones were in 20 19 Hepatitis A only active not cont agious Menopause 2004 on and off Anemia 1993 on and off Lupus erythematosus 2020 Doctor ran test for this says I have it need to continue on Arthritis 2020 feeling it in my [place] ds Disorder of thyroid gland 2013 give me thyroi d meds take occasionally Anxiety 2007 need meds to relax f rom anxiety attacks Cervical cancer 2003 Doctor Александр in [facility] sse did Leep surgery Malignant lymphoma 2019 possibilty of having it coming to you for 2nd opinion Malignant tumor of lung 2008 keep getting blo od clots History of cerebrovascular accident Hypothyroidism 04/15/2021 Family History Medical History Relation Name Comments Head and neck cancer Brother Sergei Hussein 2007 Pancreatic cancer Father Manuel Bergman Relation Name Status Comments Brother Sergei Hussein Father Manuel Bergman Social History Tobacco Use Types Packs/Day Years Used Date Smoking Tobacco: Former Cigarettes 0 0 Quit : 03/16/2019 Smokeless Tobacco: Never Snuff, Chew Zaki t: 10/05/2020 Comments: already quit Alcohol Use Standard Drinks/Week Comments Not Currently 1 (1 standard drink = 0.6 oz pure one gl ass weekly maybe some times alcohol) Sex Assigned at Date Recorded Not on file Job Start Date Occupation Industry Not on file Not on file Not on file Obstetrics History Last Filed Vital Signs Not on file Plan of Treatment Health Maintenance Due Date Last Done Comments COVID-19 Vaccination (#1) 03/03/1962 Medical Devices Implanted Type Area Marketing/Sales Person Device Identifier Shelf Exp iration Model / Date Serial / L ot Plate Plate Midline: Neck Screw Screw Bilateral: Foot Results Not on fileafter 05/02/2022 Insurance Payer Benefit Plan Subscriber ID Effective Phone Address Typ e / Group Dates ACCESS TPA [employer] [id number] 2014-Prese [phone] [address] [employer] [id number] [place] [address] (Home) LOOP [phone] [place] (Work) [phone] Donna Sinclair Personal/Family Self [address] [place] [address] (Home) LOOP [phone] [place] ([place]) [phone] Care Teams Capital Project Engineer Relationship Specialty Start Date End Date Laureen Hackett PCP - General Lymphoma and Myeloma 02/28/21 Beto Castillo MD [facility] [place] [address] Chip Patel PA PCP - External Primary 03/16/21 [address] [place] [address] Kirt Avitia MD PCP - External Follow Up Internal Medicine 1 PhD A [id number] [facility] [address] [place] [address] Lola Lan, PCP - External Follow Up 03/16/[address] [place] [address]
--- OUTSIDE RECORDS SUMMARY | 2023-05-02 23:09 | XMS REPORT | Continuity of Care Document ---
:1960 Author Organization [facility] t Address [address] [place] [address]. [address] [place] [address] Care Team Providers Name Role Phone [phone] Primary Care Physician Unavailable SYSTEM, PROVIDER NOT IN Attending Clinician Unavailable BENNIE ZARATE Attending Clinician Unavailable Elaine Avitia Attending Clinician Unavailable RODOLFO BOOGIE Attending Clinician Unavailable RODOLFO BOOGIE Attending Clinician Unavailable Micheline Pickard Attending Clinician RADIOLOGY Attending Clinician Unavailable Radiology Attending Clinician Unavailable Jass Reynaga MD Attending Clinician LISETTE MCKAY Attending Clinician Unavailable Lisette Aguilar Attending Clinician MICHELINE ARREDONDO Attending Clinician Unavailable Lab, Ang - Db Attending Clinician Unavailable PATITO CALLE Attending Clinician Unavailable Patito Borjas Attending Clinician Bennie Zarate MD Attending Clinician Pob, Adc Lab Main Attending Clinician Unavailable Carlos Garcia MD Attending Clinician Doctor Unassigned, Crump Attending Clinician Unavailable Nori Mcclain Attending Clinician Javon Price PA-C Attending Clinician NORI GONZALEZ Attending Clinician Unavailable JOHN TRAN Attending Clinician Unavailable John Patrick Attending Clinician DEIRDRE DAO Attending Clinician Unavailable ALEJANDRINA MAK Attending Clinician Unavailable Alejandrina Mak MD Attending Clinician Only, [facility] Attending Clinician Unavailable CARLOS GARCIA Attending Clinician Unavailable BRET HAWKINS Attending Clinician Unavailable CORINA MONREAL Attending Clinician Unavailable GABRIELLE GARCIA Attending Clinician Unavailable MELVINA ALVARADO Attending Clinician Unavailable ELAINE AVITIA Attending Clinician Unavailable Paul Guerrero DO Attending Clinician Lola Ziegler MD K.HNishi Attending Clinician LOLA ZIEGLER K.HNishi Attending Clinician Unavailable Chip Patel Attending Clinician Unavailable Pc, Adc Echo Room 1 - Attending Clinician Unavailable Elin King MD Attending Clinician ELIN KING Attending Clinician Unavailable Visit, Adc Nurse Attending Clinician Unavailable Pcp, Patient Does Not Have A Attending Clinician +[id number]- [phone] Provider, [facility] Attending Clinician Unavailable JAVON PRICE Attending Clinician Unavailable Pob1, Acute [facility] Attending Clinician Unavailable SB GIBBS Attending Clinician Unavailable BENNIE ZARATE Admitting Clinician Unavailable Physician, No Primary or Family Admitting Clinician UnavailELAINE Bowers Admitting Clinician Unavailable MICHELINE ARREDONDO Admitting Clinician Unavailable ALEJANDRINA MAK Admitting Clinician Unavailable Bennie Zarate MD Admitting Clinician CORINA MONREAL Admitting Clinician Unavailable Payers Payer Name Policy Type Policy Number Effective Date Expiration Date S danyelle [employer] PPO [id number] 2016 00:00:00 [place] [employer] GENERIC [id number] 2014 00:00:00 Problems Condition Condition Condition Status Onset Resolution Last Treating Co mments Source Name Details Category Date Date Treatment Clinician Date Acute URI Acute URI Disease Active 2021-10 Uni vers 2-30 ity of 00:00: [place] 00 [facility] Sore Sore Disease Active 2021-10 Univers throat throat 2-30 ity of 00:00: [place] 00 [facility] Acute Acute Disease Active 2021-10 Univers cough cough 2-30 ity of 00:00: [place] 00 [facility] Wheezing Wheezing Disease Active 2021-10 Unive rs 2-30 ity of 00:00: [place] 00 [facility] Lung Lung Disease Active 2021-10 Univers nodule nodule 2-03 ity of 00:00: [place] 00 [facility] No known No known Disease Unive rs active active ity of problems problems [facility] Allergies, Adverse Reactions, Alerts Allergy Allergy Status Severity Reaction(s) Onset Inactive Treating Comm ents Source Name Type Date Date Clinician METOPROL DRUG Active Other-Cmnt Univ ers OL INGREDI 2-11 ity of 00:00: [place] [facility] Metoprol Propensi Active Other - See Tirednes s Univers ol ty to comments 11 /sleepine ity o f adverse 00:00: ss [place] reaction 00 [facility] CIPROFLO DRUG Active N/V 2020- Univers XACIN INGREDI 2-10 ity of 00:00: [place] 00 [facility] MILNACIP DRUG Active Rash 2020- Univers RAN INGREDI 2-10 ity of 00:00: [place] 00 [facility] Ciproflo Propensi Active Nausea 2020- Univer s xacin ty to and/or 2-10 ity of adverse Vomiting 00:00: [place] reaction 00 [facility] Milnacip Propensi Active Rash 2020- Univer s ran ty to 2-10 ity of adverse 00:00: [place] reaction 00 [facility] Social History Social Habit Start Date Stop Date Quantity Comments Source Gender identity [facility] Sexual orientation [facility] Exposure to 2022-12-31 2023-01-10 Not sure [place] of SARS-CoV-2 (event) 00:00:00 08:14:00 [facility] Tobacco Comment 2022-10-06 2022-10-06 quit 2019 Universit y of 00:00:00 00:00:00 [facility] Cigarettes smoked 2022-10-06 2022-10-06 Univers ity of current (pack per 00:00:00 00:00:00 ) - Reported Branch Cigarette 2022-10-06 2022-10-06 University of pack-years 00:00:00 00:00:00 [facility] Tobacco use and 2022-10-06 2022-10-06 Smokeless Universit y of exposure 00:00:00 00:00:00 tobacco non-user [facility] dical [place] History of Social 2022-08-24 2022-08-24 Univers ity of function 00:00:00 00:00:00 [facility] History of tobacco 2019-09-07 Cigarette Smoker University of use 00:00:00 [facility] Sex Ass[birth year] At [birth year] [facility] Smoking Status Start Date Stop Date Source Tobacco smoking [facility] consumption unknown Ex-smoker 2022-10-06 00:00:00 2022-10-06 University o f [place] 00:00:00 [facility] Medications Ordered Filled Start Stop Current Ordering Indication Dosage Frequency Signature Comments Components Source Medication Medication Date Date Medication? Clinician (SIG) Name Name gabapentin Yes 300mg Take 1 Univ ers 300 mg 7-18 capsule by ity of capsule 13:36: mouth in [place] 10 the Medical morning Branch and 1 capsule in the evening. methocarbam Yes [id number] 750mg Take 1 Univers oL 750 mg 7-18 tablet by ity o f tablet 00:00: mouth 4 [place] 00 (four) Medical times Branch daily as needed for Pain (scale 1-3). omeprazole Yes [id number] 40mg Take 1 U nivers 40 mg 7-18 capsule by ity of capsule 00:00: mouth in [place] 00 the Medical morning. Branch meclizine Yes [id number] 12.5mg Take 1 Univers 12.5 mg 7-18 tablet by ity of tablet 00:00: mouth 3 [place] 00 (three) Medical times [place] daily as needed for Dizziness or Nausea. iopamidol 2022- No [id number] 65mL 65 mL, Univers (ISOVUE 01-16 Intravenou ity o f 370-500 mL) 15:45: 15:44 s, ONCE, 1 [place] injection 00 :00 dose, On Medica l 65 mL Tue Branch 01/16/23 at 1045, Routine FLUTICASONE 2022-0 Yes [id number] SPRAY 2 Univers PROPIONATE 2-06 SPRAYS ity of 50 00:00: INTO EACH [place] mcg/actuati 00 NOSTRIL IN Me dical on nasal THE Branch spray MORNING FLUTICASONE 0 Yes [id number] SPRAY 2 Univers PROPIONATE 2-06 SPRAYS ity of 50 00:00: INTO EACH [place] mcg/actuati 00 NOSTRIL IN Me dical on nasal THE Branch spray MORNING FLUTICASONE 2022-0 Yes [id number] SPRAY 2 Univers PROPIONATE 2-06 SPRAYS ity of 50 00:00: INTO EACH [place] mcg/actuati 00 NOSTRIL IN Me dical on nasal THE Branch spray MORNING FLUTICASONE 2022-0 Yes [id number] SPRAY 2 Univers PROPIONATE 2-06 SPRAYS ity of 50 00:00: INTO EACH [place] mcg/actuati 00 NOSTRIL IN Me dical on nasal THE Branch spray MORNING FLUTICASONE 2022-0 Yes [id number] SPRAY 2 Univers PROPIONATE 2-06 SPRAYS ity of 50 00:00: INTO EACH [place] mcg/actuati 00 NOSTRIL IN Me dical on nasal THE Branch spray MORNING FLUTICASONE Yes [id number] SPRAY 2 Univers PROPIONATE 1-10 SPRAYS ity of 50 00:00: INTO EACH [place] mcg/actuati 00 NOSTRIL IN Me dical on nasal THE Branch spray MORNING FLUTICASONE 2022- No [id number] SPRAY 2 Univers PROPIONATE 1-10 02-06 SPRAYS ity of 50 00:00: 00:00 INTO EACH [place] mcg/actuati 00 :00 NOSTRIL IN Me dical on nasal THE Branch spray MORNING meclizine 2021-10- No 25mg Take 25 mg U nivers 25 mg 2-30 12-30 by mouth 2 ity of tablet 10:46: 00:00 (two) [place] 24 :00 times Medical daily as Branch needed. meclizine 2021-10- No 25mg Take 25 mg U nivers 25 mg 2-30 12-30 by mouth 2 ity of tablet 10:46: 00:00 (two) [place] 24 :00 times Medical daily as Branch needed. albuterol 2021-10 Yes [id number] 2{puff} Inhale 2 Univers 90 2-30 Puffs ity of mcg/actuati 00:00: every 6 [place] as on inhaler 00 (six) Medical hours as Branch needed for Wheezing or Shortness of Breath. albuterol 2021-10 Yes [id number] 2{puff} Inhale 2 Univers 90 2-30 Puffs ity of mcg/actuati 00:00: every 6 [place] as on inhaler 00 (six) Medical hours as Branch needed for Wheezing or Shortness of Breath. albuterol 2021-10 Yes [id number] 2{puff} Inhale 2 Univers 90 2-30 Puffs ity of mcg/actuati 00:00: every 6 [place] as on inhaler 00 (six) Medical hours as Branch needed for Wheezing or Shortness of Breath. albuterol 2021-10 Yes [id number] 2{puff} Inhale 2 Univers 90 2-30 Puffs ity of mcg/actuati 00:00: every 6 [place] as on inhaler 00 (six) Medical hours as Branch needed for Wheezing or Shortness of Breath. albuterol 2021-10 Yes [id number] 2{puff} Inhale 2 Univers 90 2-30 Puffs ity of mcg/actuati 00:00: every 6 [place] as on inhaler 00 (six) Medical hours as Branch needed for Wheezing or Shortness of Breath. albuterol 2021-10 Yes [id number] 2{puff} Inhale 2 Univers 90 2-30 Puffs ity of mcg/actuati 00:00: every 6 [place] as on inhaler 00 (six) Medical hours as Branch needed for Wheezing or Shortness of Breath. albuterol 2021-10 Yes [id number] 2{puff} Inhale 2 Univers 90 2-30 Puffs ity of mcg/actuati 00:00: every 6 [place] as on inhaler 00 (six) Medical hours as Branch needed for Wheezing or Shortness of Breath. albuterol 2021-10 Yes [id number] 2{puff} Inhale 2 Univers 90 2-30 Puffs ity of mcg/actuati 00:00: every 6 [place] as on inhaler 00 (six) Medical hours as Branch needed for Wheezing or Shortness of Breath. albuterol 2021-10 Yes [id number] 2{puff} Inhale 2 Univers 90 2-30 Puffs ity of mcg/actuati 00:00: every 6 [place] as on inhaler 00 (six) Medical hours as Branch needed for Wheezing or Shortness of Breath. bromphenira 2021-10- No [id number] 10mL Take 10 mL Univers mine-pseudo 10-17 by mouth 4 i ty of ephedrine-D 00:00: 05:59 (four) [place] as M (BROMFED 00 :00 times Medical DM) 2-30-10 daily as Bran ch mg/5 mL needed for syrup Congestion /Allergies for up to 10 days. bromphenira 2021-10- No [id number] 10mL Take 10 mL Univers mine-pseudo 10-17 by mouth 4 i ty of ephedrine-D 00:00: 05:59 (four) [place] as M (BROMFED 00 :00 times Medical DM) 2-30-10 daily as Bran ch mg/5 mL needed for syrup Congestion /Allergies for up to 10 days. bromphenira 2021-10 No [id number] 10mL Take 10 mL Univers mine-pseudo 10-17 by mouth 4 i ty of ephedrine-D 00:00: 05:59 (four) [place] as M (BROMFED 00 :00 times Medical DM) 2-30-10 daily as Bran ch mg/5 mL needed for syrup Congestion /Allergies for up to 10 days. methylPREDN 2021-10 No [id number] [facility] ity of (MEDROL, 00:00: 05:59 [place] 4 mg 00 :00 CTIONS for Med ical tablets 5 days. Branch follow package directions methylPREDN 2021-10 No [id number] [facility] mouth ity of (MEDROL, 00:00: 05:59 [place] 4 mg 00 :00 CTIONS for Med ical tablets 5 days. Branch follow package directions methylPREDN 2021-10 No [id number] [facility] mouth ity of (MEDROL, 00:00: 05:59 [place] 4 mg 00 :00 CTIONS for Med ical tablets 5 days. Branch follow package directions LORATADINE 2021-10 Yes [id number] TAKE 1 U nivers 10 mg 2-13 TABLET BY ity of tablet 00:00: MOUTH [place] 00 EVERY DAY Medical IN THE Branch MORNING FLUTICASONE 2021-10 Yes [id number] 2{spray USE 2 Univers PROPIONATE 2-13 } SPRAYS IN ity of 50 00:00: EACH [place] mcg/actuati 00 NOSTRIL IN Me dical on nasal THE Branch spray MORNING. FLUTICASONE 2021-10 Yes [id number] 2{spray USE 2 Univers PROPIONATE 2-13 } SPRAYS IN ity of 50 00:00: EACH [place] mcg/actuati 00 NOSTRIL IN Me dical on nasal THE Branch spray MORNING. FLUTICASONE 2021-10 Yes [id number] 2{spray USE 2 Univers PROPIONATE 2-13 } SPRAYS IN ity of 50 00:00: EACH [place] mcg/actuati 00 NOSTRIL IN Me dical on nasal THE Branch spray MORNING. FLUTICASONE 2021-10 Yes [id number] 2{spray USE 2 Univers PROPIONATE 2-13 } SPRAYS IN ity of 50 00:00: EACH [place] mcg/actuati 00 NOSTRIL IN Me dical on nasal THE Branch spray MORNING. FLUTICASONE 2021-10- No [id number] 2{spray USE 2 Univers PROPIONATE 2-13 01-10 } SPRAYS IN ity of 50 00:00: 00:00 EACH [place] mcg/actuati 00 :00 NOSTRIL IN Me dical on nasal THE Branch spray MORNING. LORATADINE 2021-10- No [id number] TAKE 1 Univers 10 mg 2-13 12-30 TABLET BY ity of tablet 00:00: 00:00 MOUTH [place] 00 :00 EVERY DAY Medical IN THE Branch MORNING LORATADINE 2021-10- No [id number] TAKE 1 Univers 10 mg 2-13 12-30 TABLET BY ity of tablet 00:00: 00:00 MOUTH [place] 00 :00 EVERY DAY Medical IN THE Branch MORNING iopamidol 2021-10- No [id number] 65mL 65 mL, Univers (ISOVUE -08-28 Intravenou ity o f 370-500 mL) 22:22: 22:23 s, ONCE, 1 [place] injection 00 :00 dose, On Medica l 65 mL Mon [place] 08/28/22 at 1645, Routine loratadine 2021-10 Yes [id number] 10mg Take 1 U nivers 10 mg 1-18 tablet by ity of tablet 00:00: mouth in [place] 00 the Medical morning. Branch fluticasone 2021-10 Yes [id number] 2{spray Use 2 Univers propionate 1-18 } Sprays in ity of 50 00:00: each [place] mcg/actuati 00 nostril in Me dical on nasal the Branch spray morning. loratadine 2021-10 Yes [id number] 10mg Take 1 U nivers 10 mg 1-18 tablet by ity of tablet 00:00: mouth in [place] 00 the Medical morning. Branch fluticasone 2021-10 Yes [id number] 2{spray Use 2 Univers propionate 1-18 } Sprays in ity of 50 00:00: each [place] mcg/actuati 00 nostril in Me dical on nasal the Branch spray morning. loratadine 2021-10 Yes [id number] 10mg Take 1 U nivers 10 mg 1-18 tablet by ity of tablet 00:00: mouth in [place] the Medical morning. Branch fluticasone 2021-10 Yes [id number] 2{spray Use 2 Univers propionate 1-18 } Sprays in ity of 50 00:00: each [place] mcg/actuati 00 nostril in Me dical on nasal the Branch spray morning. loratadine 2021-10 Yes [id number] 10mg Take 1 U nivers 10 mg 1-18 tablet by ity of tablet 00:00: mouth in [place] 00 the Medical morning. Branch fluticasone 2021-10 Yes [id number] 2{spray Use 2 Univers propionate 1-18 } Sprays in ity of 50 00:00: each [place] mcg/actuati 00 nostril in Me dical on nasal the Branch spray morning. loratadine 2021-10 Yes [id number] 10mg Take 1 U nivers 10 mg 1-18 tablet by ity of tablet 00:00: mouth in [place] 00 the Medical morning. Branch fluticasone 2021-10 Yes [id number] 2{spray Use 2 Univers propionate 1-18 } Sprays in ity of 50 00:00: each [place] mcg/actuati 00 nostril in Me dical on nasal the Branch spray morning. loratadine 2021-10 Yes [id number] 10mg Take 1 U nivers 10 mg 1-18 tablet by ity of tablet 00:00: mouth in [place] 00 the Medical morning. Branch fluticasone 2021-10 Yes [id number] 2{spray Use 2 Univers propionate 1-18 } Sprays in ity of 50 00:00: each [place] mcg/actuati 00 nostril in Me dical on nasal the Branch spray morning. loratadine 2021-10 Yes [id number] 10mg Take 1 U nivers 10 mg 1-18 tablet by ity of tablet 00:00: mouth in [place] 00 the Medical morning. Branch fluticasone 2021-10 Yes [id number] 2{spray Use 2 Univers propionate 1-18 } Sprays in ity of 50 00:00: each [place] mcg/actuati 00 nostril in Me dical on nasal the Branch spray morning. loratadine 2021-10 Yes [id number] 10mg Take 1 U nivers 10 mg 1-18 tablet by ity of tablet 00:00: mouth in [place] the Medical morning. Branch fluticasone 2021-10 Yes [id number] 2{spray Use 2 Univers propionate 1-18 } Sprays in ity of 50 00:00: each [place] mcg/actuati 00 nostril in Me dical on nasal the Branch spray morning. loratadine 2021-10 Yes [id number] 10mg Take 1 U nivers 10 mg 1-18 tablet by ity of tablet 00:00: mouth in [place] the Medical morning. Branch fluticasone 2021-10 Yes [id number] 2{spray Use 2 Univers propionate 1-18 } Sprays in ity of 50 00:00: each [place] mcg/actuati 00 nostril in Me dical on nasal the Branch spray morning. loratadine 2021-10 Yes [id number] 10mg Take 1 U nivers 10 mg 1-18 tablet by ity of tablet 00:00: mouth in [place] 00 the Medical morning. Branch fluticasone 2021-10 Yes [id number] 2{spray Use 2 Univers propionate 1-18 } Sprays in ity of 50 00:00: each [place] mcg/actuati 00 nostril in Me dical on nasal the Branch spray morning. loratadine 2021-10 [id number] 10mg Take 1 Univers 10 mg 1-18 12-13 tablet by ity of tablet 00:00: 00:00 mouth in [place] 00 :00 the Medical morning. Branch fluticasone 2021-10- No [id number] 2{spray Use 2 Univers propionate -18 12-13 } Sprays in ity of 50 00:00: 00:00 each [place] mcg/actuati 00 :00 nostril in Pr dical on nasal the Branch spray morning. meclizine 2021-10 Yes 25mg Take 25 mg Un jazmine 25 mg 1-17 by mouth 2 ity of tablet 15:47: (two) [place] 06 times Medical daily as Branch needed. meclizine 2021- Yes 25mg Take 25 mg Un jazmine 25 mg 1-17 by mouth 2 ity of tablet 15:47: (two) [place] 06 times Medical daily as Branch needed. meclizine 2021-10 Yes 25mg Take 25 mg Un jazmine 25 mg 1-17 by mouth 2 ity of tablet 15:47: (two) [place] 06 times Medical daily as Branch needed. meclizine 2021-10 Yes 25mg Take 25 mg Un jazmine 25 mg 1-17 by mouth 2 ity of tablet 15:47: (two) [place] 06 times Medical daily as Branch needed. meclizine 2021- Yes 25mg Take 25 mg Un jazmine 25 mg 1-17 by mouth 2 ity of tablet 15:47: (two) [place] 06 times Medical daily as Branch needed. meclizine 2021-10 Yes 25mg Take 25 mg Un jazmine 25 mg 1-17 by mouth 2 ity of tablet 15:47: (two) [place] 06 times Medical daily as Branch needed. meclizine 2021- Yes 25mg Take 25 mg Un jazmine 25 mg 1-17 by mouth 2 ity of tablet 15:47: (two) [place] 06 times Medical daily as Branch needed. meclizine 2021- Yes 25mg Take 25 mg Un jazmine 25 mg 1-17 by mouth 2 ity of tablet 15:47: (two) [place] 06 times Medical daily as Branch needed. meclizine 2021- Yes 25mg Take 25 mg Un jazmine 25 mg 1-17 by mouth 2 ity of tablet 15:47: (two) [place] 06 times Medical daily as Branch needed. meclizine 2021-10 Yes 25mg Take 25 mg Un jazmine 25 mg 1-17 by mouth 2 ity of tablet 15:47: (two) [place] 06 times Medical daily as Branch needed. meclizine 2021-10 Yes 25mg Take 25 mg Un jazmine 25 mg 1-17 by mouth 2 ity of tablet 15:47: (two) [place] 06 times Medical daily as Branch needed. meclizine 2021-10 Yes 25mg Take 25 mg Un jazmine 25 mg 1-17 by mouth 2 ity of tablet 15:47: (two) [place] 06 times Medical daily as Branch needed. meclizine 2021-10 Yes 25mg Take 25 mg Un jazmine 25 mg 1-17 by mouth 2 ity of tablet 15:47: (two) [place] 06 times Medical daily as Branch needed. traMADoL 50 2021-10- No 50mg Take 50 mg Univers mg tablet 10-2417 by mouth ity o f 15:46: 00:00 every 6 [place] 23 :00 (six) Medical hours as Branch needed. traMADoL 50 2021-10- No 50mg Take 50 mg Univers mg tablet 10-24-17 by mouth ity o f 15:46: 00:00 every 6 [place] 23 :00 (six) Medical hours as Branch needed. levothyroxi 2021-10- No 50ug Take 50 Un jazmine ne 50 mcg 1-17 11-17 mcg by ity of tablet 15:46: 00:00 mouth [place] 05 :00 every Medical morning. Branch levothyroxi 2021-10- No 50ug Take 50 Un jazmine ne 50 mcg 1-17 11-17 mcg by ity of tablet 15:46: 00:00 mouth [place] 05 :00 every Medical morning. Branch gabapentin 2021-10 Yes 300mg Take 300 Un jazmine 300 mg 1-17 mg by ity of capsule 15:03: mouth 2 [place] (two) Medical times Branch daily. gabapentin 2021-10 Yes 300mg Take 300 Un jazmine 300 mg 1-17 mg by ity of capsule 15:03: mouth 2 [place] (two) Medical times Branch daily. gabapentin 2021-10 Yes 300mg Take 300 Un jazmine 300 mg 1-17 mg by ity of capsule 15:03: mouth 2 [place] (two) Medical times Branch daily. gabapentin 2022-1 Yes 300mg Take 300 Un jazmine 300 mg 1-17 mg by ity of capsule 15:03: mouth 2 [place] (two) Medical times Branch daily. gabapentin 2022-1 Yes 300mg Take 300 Un jazmine 300 mg 1-17 mg by ity of capsule 15:03: mouth 2 (two) Medical times Branch daily. gabapentin 2022-1 Yes 300mg Take 300 Un jazmine 300 mg 1-17 mg by ity of capsule 15:03: mouth 2 (two) Medical times Branch daily. gabapentin 2022-1 Yes 300mg Take 300 Un jazmine 300 mg 1-17 mg by ity of capsule 15:03: mouth 2 [place] (two) Medical times Branch daily. gabapentin 2022-1 Yes 300mg Take 300 Un jazmine 300 mg 1-17 mg by ity of capsule 15:03: mouth 2 [place] (two) Medical times Branch daily. gabapentin 2022-1 Yes 300mg Take 300 Un jazmine 300 mg 1-17 mg by ity of capsule 15:03: mouth [place] (two) Medical times Branch daily. gabapentin 2022-1 Yes 300mg Take 300 Un jazmine 300 mg 1-17 mg by ity of capsule 15:03: mouth [place] (two) Medical times Branch daily. gabapentin 2022-1 Yes 300mg Take 300 Un jazmine 300 mg 1-17 mg by ity of capsule 15:03: mouth 2 [place] (two) Medical times Branch daily. gabapentin 2022-1 Yes 300mg Take 300 Un jazmine 300 mg 1-17 mg by ity of capsule 15:03: mouth [place] (two) Medical times Branch daily. gabapentin 2022-1 Yes 300mg Take 300 Un jazmine 300 mg 1-17 mg by ity of capsule 15:03: mouth 2 [place] (two) Medical times Branch daily. gabapentin 2022-1 Yes 300mg Take 300 Un jazmine 300 mg 1-17 mg by ity of capsule 15:03: mouth 2 [place] (two) Medical times Branch daily. gabapentin 2022-1 Yes 300mg Take 300 Un jazmine 300 mg 1-17 mg by ity of capsule 15:03: mouth 2 [place] (two) Medical times Branch daily. gabapentin 2022-1 Yes 300mg Take 300 Un jazmine 300 mg 1-17 mg by ity of capsule 15:03: mouth 2 (two) Medical times Branch daily. gabapentin 2021-10 Yes 300mg Take 300 Un jazmine 300 mg 1-17 mg by ity of capsule 15:03: mouth 2 (two) Medical times Branch daily. gabapentin 2021-10 Yes 300mg Take 300 Un jazmine 300 mg 1-17 mg by ity of capsule 15:03: mouth 2 (two) Medical times Branch daily. gabapentin 2021-10 Yes 300mg Take 300 Un jazmine 300 mg 1-17 mg by ity of capsule 15:03: mouth 2 (two) Medical times Branch daily. gabapentin 2021-10 Yes 300mg Take 300 Un jazmine 300 mg 1-17 mg by ity of capsule 15:03: mouth 2 [place] (two) Medical times Branch daily. gabapentin 2021-10 Yes 300mg Take 300 Un jazmine 300 mg 1-17 mg by ity of capsule 15:03: mouth [place] (two) Medical times Branch daily. chlorthalid 2021-10- No 25mg Take 25 mg Univers one 25 mg 10-16 by mouth ity o f tablet 14:11: 00:00 daily. [place] 38 :00 [facility] Branch chlorthalid 2021-10- No 25mg Take 25 mg Univers one 25 mg 10-16 by mouth ity o f tablet 14:11: 00:00 daily. [place] 38 :00 [facility] Branch methocarbam 2021-0 Yes [id number] 750mg Take 1 Univers oL 750 mg 8-14 tablet by ity o f tablet 00:00: mouth (four) Medical times Branch daily as needed for Pain (scale 1-3). methocarbam 2021-0 Yes [id number] 750mg Take 1 Univers oL 750 mg 8-14 tablet by ity o f tablet 00:00: mouth 4 (four) Medical times Branch daily as needed for Pain (scale 1-3). methocarbam 2-0 Yes [id number] 750mg Take 1 Univers oL 750 mg 8-14 tablet by ity o f tablet 00:00: mouth 4 (four) Medical times Branch daily as needed for Pain (scale 1-3). methocarbam 2-0 Yes [id number] 750mg Take 1 Univers oL 750 mg 8-14 tablet by ity o f tablet 00:00: mouth (four) Medical times Branch daily as needed for Pain (scale 1-3). methocarbam 2021-0 Yes [id number] 750mg Take 1 Univers oL 750 mg 8-14 tablet by ity o f tablet 00:00: mouth (four) Medical times Branch daily as needed for Pain (scale 1-3). methocarbam 2021-0 Yes [id number] 750mg Take 1 Univers oL 750 mg 8-14 tablet by ity o f tablet 00:00: mouth (four) Medical times Branch daily as needed for Pain (scale 1-3). methocarbam 2021-0 Yes [id number] 750mg Take 1 [facility] 750 mg 8-14 tablet by [facility] f tablet 00:00: mouth (four) Medical times Branch daily as needed for Pain (scale 1-3). methocarbam 2021-0 Yes [id number] 750mg Take 1 [facility] 750 mg 8-14 tablet by [facility] f tablet 00:00: mouth (four) Medical times Branch daily as needed for Pain (scale 1-3). methocarbam 2021-0 Yes [id number] 750mg Take 1 [facility] 750 mg 8-14 tablet by [facility] o f tablet 00:00: mouth (four) Medical times Branch daily as needed for Pain (scale 1-3). methocarbam 2021-0 Yes [id number] 750mg Take 1 [facility] 750 mg 8-14 tablet by [facility] f tablet 00:00: mouth (four) Medical times Branch daily as needed for Pain (scale 1-3). methocarbam 2-0 Yes [id number] 750mg Take 1 [facility] 750 mg 8-14 tablet by [facility] o f tablet 00:00: mouth (four) Medical times Branch daily as needed for Pain (scale 1-3). methocarbam 2-0 Yes [id number] 750mg Take 1 [facility] 750 mg 8-14 tablet by [facility] o f tablet 00:00: mouth (four) Medical times Branch daily as needed for Pain (scale 1-3). methocarbam 2022-0 Yes [id number] 750mg Take 1 [facility] 750 mg 8-14 tablet by [facility] o f tablet 00:00: mouth (four) Medical times Branch daily as needed for Pain (scale 1-3). methocarbam 2021-0 Yes [id number] 750mg Take 1 [facility] 750 mg 8-14 tablet by [facility] o f tablet 00:00: mouth (four) Medical times Branch daily as needed for Pain (scale 1-3). methocarbam 2021-0 Yes [id number] 750mg Take 1 [facility] 750 mg 8-14 tablet by [facility] o f tablet 00:00: mouth (four) Medical times Branch daily as needed for Pain (scale 1-3). methocarbam 2021-0 Yes [id number] 750mg Take 1 [facility] 750 mg 8-14 tablet by [facility] o f tablet 00:00: mouth (four) Medical times Branch daily as needed for Pain (scale 1-3). methocarbam 2021-0 Yes [id number] 750mg Take 1 [facility] 750 mg 8-14 tablet by [facility] o f tablet 00:00: mouth (four) Medical times Branch daily as needed for Pain (scale 1-3). methocarbam 2021-0 Yes [id number] 750mg Take 1 [facility] 750 mg 8-14 tablet by [facility] o f tablet 00:00: mouth (four) Medical times Branch daily as needed for Pain (scale 1-3). methocarbam 2021-0 Yes [id number] 750mg Take 1 [facility] 750 mg 8-14 tablet by [facility] o f tablet 00:00: mouth (four) Medical times Branch daily as needed for Pain (scale 1-3). methocarbam 2-0 Yes [id number] 750mg Take 1 [facility] 750 mg 8-14 tablet by [facility] o f tablet 00:00: mouth (four) Medical times Branch daily as needed for Pain (scale 1-3). methocarbam 2-0 Yes [id number] 750mg Take 1 [facility] 750 mg 8-14 tablet by [facility] o f tablet 00:00: mouth (four) Medical times Branch daily as needed for Pain (scale 1-3). methocarbam 2022-0 Yes [id number] 750mg Take 1 [facility] 750 mg 8-14 tablet by [facility] o f tablet 00:00: mouth 4 00 (four) Medical times Branch daily as needed for Pain (scale 1-3). methocarbam 2021-0 Yes [id number] 750mg Take 1 [facility] 750 mg 8-14 tablet by [facility] o f tablet 00:00: mouth 4 00 (four) Medical times Branch daily as needed for Pain (scale 1-3). methocarbam 2021-0 Yes [id number] 750mg Take 1 [facility] 750 mg 8-14 tablet by [facility] o f tablet 00:00: mouth 4 00 (four) Medical times Branch daily as needed for Pain (scale 1-3). methocarbam 2021-0 Yes [id number] 750mg Take 1 [facility] 750 mg 8-14 tablet by [facility] o f tablet 00:00: mouth 4 00 (four) Medical times Branch daily as needed for Pain (scale 1-3). methocarbam 2021-0 Yes [id number] 750mg Take 1 [facility] 750 mg 8-14 tablet by [facility] o f tablet 00:00: mouth 4 00 (four) Medical times Branch daily as needed for Pain (scale 1-3). methocarbam 2021-0 Yes [id number] 750mg Take 1 [facility] 750 mg 8-14 tablet by [facility] o f tablet 00:00: mouth 4 00 (four) Medical times Branch daily as needed for Pain (scale 1-3). gabapentin 0 Yes 300mg Take 300 [facility] 300 mg 6-30 mg by [facility] of capsule 14:30: mouth 2 [place] 15 (two) Medical times Branch daily. ALPRAZolam 0 Yes .5mg Take 0.5 [facility] vers 0.5 mg 6-30 mg by [facility] of tablet 14:30: mouth 3 [place] 15 (three) Medical times Branch daily as needed. chlorthalid 0 Yes 25mg Take 25 mg [facility] one 25 mg 6-30 by mouth [facility] of tablet 14:30: daily. [place] 15 Medical Branch levothyroxi 2021-0 Yes 50ug Take 50 [facility] vers ne 50 mcg 6-30 mcg by [facility] of tablet 14:30: mouth [place] 15 every Medical morning. Branch meclizine 2022-0 Yes 25mg Take 25 mg [facility] 25 mg 6-30 by mouth 2 [facility] of tablet 14:30: (two) [place] 15 times Medical daily as Branch needed. traMADoL 50 2021-0 Yes 50mg Take 50 mg [facility] mg tablet 6-30 by mouth ity of 14:30: every 6 [place] 15 (six) Medical hours as Branch needed. PARoxetine 2021-0 Yes 5mg Take 5 mg [facility] 10 mg 6-30 by mouth [facility] of tablet 14:30: daily. [place] 15 Medical Branch HYDROcodone 2021-0 Yes 1{tbl} Take 1 [facility] jazmine -acetaminop 6-30 tablet by it[facility] of hen 5-325 14:30: mouth [place] mg tablet 15 every 6 Medical (six) Branch hours as needed. thyroid 2021-0 Yes 60mg Take 60 mg [facility] ers (ARMOUR 6-30 by mouth ity of THYROID) 60 14:30: every [place] mg tablet 15 morning. Medica l Branch hydrOXYchlo 0 Yes 200mg Take 200 [facility] nivers roQUINE 200 6-30 mg by ity of mg tablet 14:30: mouth [place] 15 daily. Medical Branch gabapentin 0 Yes 300mg Take 300 [facility] 300 mg 6-30 mg by [facility] of capsule 14:30: mouth 2 [place] 15 (two) Medical times Branch daily. ALPRAZolam 0 Yes .5mg Take 0.5 [facility] vers 0.5 mg 6-30 mg by [facility] of tablet 14:30: mouth 3 [place] 15 (three) Medical times Branch daily as needed. chlorthalid 2021-0 Yes 25mg Take 25 mg [facility] one 25 mg 6-30 by mouth [facility] of tablet 14:30: daily. [place] 15 Medical Branch levothyroxi 0 Yes 50ug Take 50 [facility] vers ne 50 mcg 6-30 mcg by [facility] of tablet 14:30: mouth [place] 15 every Medical morning. Branch meclizine 0 Yes 25mg Take 25 mg [facility] 25 mg 6-30 by mouth 2 [facility] of tablet 14:30: (two) [place] 15 times Medical daily as Branch needed. traMADoL 50 2021-0 Yes 50mg Take 50 mg [facility] mg tablet 6-30 by mouth ity of 14:30: every 6 [place] 15 (six) Medical hours as Branch needed. PARoxetine 0 Yes 5mg Take 5 mg [facility] 10 mg 6-30 by mouth [facility] of tablet 14:30: daily. [place] [address] Medical Branch HYDROcodone 0 Yes 1{tbl} Take 1 Un jazmine -acetaminop 6-30 tablet by ity of hen 5-325 14:30: mouth [place] mg tablet 15 every 6 Medical (six) Branch hours as needed. thyroid 2021-0 Yes 60mg Take 60 mg [facility] ers (ARMOUR 6-30 by mouth ity of THYROID) 60 14:30: every [place] mg tablet 15 morning. Medica l Branch hydrOXYchlo 0 Yes 200mg Take 200 [facility] nivers roQUINE 200 6-30 mg by ity of mg tablet 14:30: mouth [place] 15 daily. Medical Branch gabapentin 0 Yes 300mg Take 300 [facility] 300 mg 6-30 mg by [facility] of capsule 14:30: mouth 2 [place] 15 (two) Medical times Branch daily. ALPRAZolam 0 Yes .5mg Take 0.5 [facility] vers 0.5 mg 6-30 mg by [facility] of tablet 14:30: mouth 3 [place] 15 (three) Medical times Branch daily as needed. chlorthalid 0 Yes 25mg Take 25 mg [facility] one 25 mg 6-30 by mouth [facility] of tablet 14:30: daily. [place] [address] Medical Branch levothyroxi 0 Yes 50ug Take 50 [facility] vers ne 50 mcg 6-30 mcg by it[facility] of tablet 14:30: mouth [place] 15 every Medical morning. Branch meclizine 0 Yes 25mg Take 25 mg [facility] 25 mg 6-30 by mouth 2 [facility] of tablet 14:30: (two) [place] 15 times Medical daily as Branch needed. traMADoL 50 2021-0 Yes 50mg Take 50 mg [facility] mg tablet 6-30 by mouth ity of 14:30: every 6 [place] 15 (six) Medical hours as Branch needed. PARoxetine 2021-0 Yes 5mg Take 5 mg [facility] 10 mg 6-30 by mouth [facility] of tablet 14:30: daily. [place] [address] Medical Branch HYDROcodone 2021-0 Yes 1{tbl} Take 1 [facility] jazmine -acetaminop 6-30 tablet by ity of hen 5-325 14:30: mouth [place] mg tablet 15 every 6 Medical (six) Branch hours as needed. thyroid 2021-0 Yes 60mg Take 60 mg [facility] ers (ARMOUR 6-30 by mouth ity of THYROID) 60 14:30: every [place] mg tablet 15 morning. Medica l Branch hydrOXYchlo 2021-0 Yes 200mg Take 200 U nivers roQUINE 200 6-30 mg by ity of mg tablet 14:30: mouth [place] 15 daily. Medical Branch gabapentin 2021-0 Yes 300mg Take 300 [facility] 300 mg 6-30 mg by [facility] of capsule 14:30: mouth 2 [place] 15 (two) Medical times Branch daily. ALPRAZolam 2021-0 Yes .5mg Take 0.5 [facility] vers 0.5 mg 6-30 mg by [facility] of tablet 14:30: mouth 3 [place] 15 (three) Medical times Branch daily as needed. chlorthalid 2021-0 Yes 25mg Take 25 mg [facility] one 25 mg 6-30 by mouth [facility] of tablet 14:30: daily. [place] [address] Medical Branch levothyroxi 2021-0 Yes 50ug Take 50 [facility] vers ne 50 mcg 6-30 mcg by [facility] of tablet 14:30: mouth [place] 15 every Medical morning. Branch meclizine 0 Yes 25mg Take 25 mg [facility] 25 mg 6-30 by mouth 2 [facility] of tablet 14:30: (two) [place] 15 times Medical daily as Branch needed. traMADoL 50 2021-0 Yes 50mg Take 50 mg [facility] mg tablet 6-30 by mouth ity of 14:30: every 6 [place] 15 (six) Medical hours as Branch needed. PARoxetine 2021-0 Yes 5mg Take 5 mg [facility] 10 mg 6-30 by mouth it[facility] of tablet 14:30: daily. [place] 15 Medical Branch HYDROcodone 2021-0 Yes 1{tbl} Take 1 [facility] jazmine -acetaminop 6-30 tablet by ity of hen 5-325 14:30: mouth [place] mg tablet 15 every 6 Medical (six) Branch hours as needed. thyroid 2021-0 Yes 60mg Take 60 mg [facility] ers (ARMOUR 6-30 by mouth ity of THYROID) 60 14:30: every [place] mg tablet 15 morning. Medica l Branch hydrOXYchlo 2021-0 Yes 200mg Take 200 [facility] nivers roQUINE 200 6-30 mg by ity of mg tablet 14:30: mouth [place] 15 daily. Medical Branch gabapentin 2021-0 Yes 300mg Take 300 [facility] 300 mg 6-30 mg by ity of capsule 14:30: mouth 2 [place] 15 (two) Medical times Branch daily. ALPRAZolam 2021-0 Yes .5mg Take 0.5 [facility] vers 0.5 mg 6-30 mg by ity of tablet 14:30: mouth 3 [place] 15 (three) Medical times Branch daily as needed. levothyroxi 2021-0 Yes 50ug Take 50 [facility] vers ne 50 mcg 6-30 mcg by it[facility] of tablet 14:30: mouth [place] 15 every Medical morning. Branch meclizine 0 Yes 25mg Take 25 mg [facility] 25 mg 6-30 by mouth 2 it[facility] of tablet 14:30: (two) [place] 15 times Medical daily as Branch needed. traMADoL 50 2021-0 Yes 50mg Take 50 mg [facility] mg tablet 6-30 by mouth ity of 14:30: every 6 [place] 15 (six) Medical hours as Branch needed. PARoxetine 0 Yes 5mg Take 5 mg [facility] 10 mg 6-30 by mouth ity of tablet 14:30: daily. [place] 15 Medical Branch HYDROcodone 2021-0 Yes 1{tbl} Take 1 [facility] jazmine -acetaminop 6-30 tablet by ity of hen 5-325 14:30: mouth [place] mg tablet 15 every 6 Medical (six) Branch hours as needed. thyroid 0 Yes 60mg Take 60 mg [facility] (ARMOUR 6-30 by mouth ity of THYROID) 60 14:30: every [place] mg tablet 15 morning. Medica l Branch hydrOXYchlo 0 Yes 200mg Take 200 U nivers roQUINE 200 6-30 mg by ity of mg tablet 14:30: mouth [place] 15 daily. Medical Branch gabapentin 2021-0 Yes 300mg Take 300 [facility] 300 mg 6-30 mg by ity of capsule 14:30: mouth 2 [place] 15 (two) Medical times Branch daily. ALPRAZolam 2021-0 Yes .5mg Take 0.5 [facility] vers 0.5 mg 6-30 mg by ity of tablet 14:30: mouth 3 [place] 15 (three) Medical times Branch daily as needed. levothyroxi 2021-0 Yes 50ug Take 50 [facility] vers ne 50 mcg 6-30 mcg by it[facility] of tablet 14:30: mouth [place] 15 every Medical morning. Branch meclizine 0 Yes 25mg Take 25 mg [facility] 25 mg 6-30 by mouth 2 it[facility] of tablet 14:30: (two) [place] 15 times Medical daily as Branch needed. traMADoL 50 2021-0 Yes 50mg Take 50 mg [facility] mg tablet 6-30 by mouth ity of 14:30: every 6 [place] 15 (six) Medical hours as Branch needed. PARoxetine 2021-0 Yes 5mg Take 5 mg [facility] 10 mg 6-30 by mouth ity of tablet 14:30: daily. [place] 15 Medical Branch HYDROcodone 0 Yes 1{tbl} Take 1 Un jazmine -acetaminop 6-30 tablet by ity of hen 5-325 14:30: mouth [place] mg tablet 15 every 6 Medical (six) Branch hours as needed. thyroid 2021-0 Yes 60mg Take 60 mg [facility] ers (ARMOUR 6-30 by mouth ity of THYROID) 60 14:30: every [place] mg tablet 15 morning. Medica l Branch hydrOXYchlo 0 Yes 200mg Take 200 U nivers roQUINE 200 6-30 mg by ity of mg tablet 14:30: mouth [place] 15 daily. Medical Branch ALPRAZolam 0 Yes .5mg Take 0.5 [facility] vers 0.5 mg 6-30 mg by ity of tablet 14:30: mouth 3 [place] 15 (three) Medical times Branch daily as needed. PARoxetine 2021-0 Yes 5mg Take 5 mg [facility] 10 mg 6-30 by mouth ity of tablet 14:30: daily. [place] 15 Medical Branch HYDROcodone 2021-0 Yes 1{tbl} Take 1 [facility] jazmine -acetaminop 6-30 tablet by ity of hen 5-325 14:30: mouth [place] mg tablet 15 every 6 Medical (six) Branch hours as needed. thyroid 2021-0 Yes 60mg Take 60 mg [facility] (ARMOUR 6-30 by mouth ity of THYROID) 60 14:30: every [place] mg tablet 15 morning. Medica l Branch hydrOXYchlo 0 Yes 200mg Take 200 U nivers roQUINE 200 6-30 mg by ity of mg tablet 14:30: mouth [place] 15 daily. Medical Branch ALPRAZolam 2021-0 Yes .5mg Take 0.5 [facility] vers 0.5 mg 6-30 mg by ity of tablet 14:30: mouth 3 [place] 15 (three) Medical times Branch daily as needed. PARoxetine 2-0 Yes 5mg Take 5 mg [facility] 10 mg 6-30 by mouth ity of tablet 14:30: daily. [place] [address] Medical Branch HYDROcodone 2021-0 Yes 1{tbl} Take 1 Un jazmine -acetaminop 6-30 tablet by ity of hen 5-325 14:30: mouth [place] mg tablet 15 every 6 Medical (six) Branch hours as needed. thyroid 2021-0 Yes 60mg Take 60 mg [facility] ers (ARMOUR 6-30 by mouth ity of THYROID) 60 14:30: every [place] mg tablet 15 morning. Medica l Branch hydrOXYchlo 2021-0 Yes 200mg Take 200 [facility] nivers roQUINE 200 6-30 mg by ity of mg tablet 14:30: mouth [place] 15 daily. Medical Branch ALPRAZolam 2021-0 Yes .5mg Take 0.5 [facility] vers 0.5 mg 6-30 mg by ity of tablet 14:30: mouth 3 [place] 15 (three) Medical times Branch daily as needed. PARoxetine 2021-0 Yes 5mg Take 5 mg [facility] 10 mg 6-30 by mouth ity of tablet 14:30: daily. [place] [address] Medical Branch HYDROcodone 2021-0 Yes 1{tbl} Take 1 [facility] jazmine -acetaminop 6-30 tablet by ity of hen 5-325 14:30: mouth [place] mg tablet 15 every 6 Medical (six) Branch hours as needed. thyroid 2-0 Yes 60mg Take 60 mg [facility] ers (ARMOUR 6-30 by mouth ity of THYROID) 60 14:30: every [place] mg tablet 15 morning. Medica l Branch hydrOXYchlo 2022-0 Yes 200mg Take 200 U nivers roQUINE 200 6-30 mg by ity of mg tablet 14:30: mouth [place] 15 daily. Medical Branch ALPRAZolam 2-0 Yes .5mg Take 0.5 [facility] vers 0.5 mg 6-30 mg by ity of tablet 14:30: mouth 3 [place] 15 (three) Medical times Branch daily as needed. PARoxetine 2022-0 Yes 5mg Take 5 mg [facility] 10 mg 6-30 by mouth ity of tablet 14:30: daily. [place] 15 Medical Branch HYDROcodone 2021-0 Yes 1{tbl} Take 1 Un jazmine -acetaminop 6-30 tablet by ity of hen 5-325 14:30: mouth [place] mg tablet 15 every 6 Medical (six) Branch hours as needed. thyroid 2022-0 Yes 60mg Take 60 mg [facility] ers (ARMOUR 6-30 by mouth ity of THYROID) 60 14:30: every [place] mg tablet 15 morning. Medica l Branch hydrOXYchlo 2021-0 Yes 200mg Take 200 U nivers roQUINE 200 6-30 mg by ity of mg tablet 14:30: mouth [place] 15 daily. Medical Branch ALPRAZolam 2021-0 Yes .5mg Take 0.5 [facility] vers 0.5 mg 6-30 mg by ity of tablet 14:30: mouth 3 [place] 15 (three) Medical times Branch daily as needed. PARoxetine 2021-0 Yes 5mg Take 5 mg [facility] j[facility] 10 mg 6-30 by mouth ity of tablet 14:30: daily. [place] [address] Medical Branch HYDROcodone 2021-0 Yes 1{tbl} Take 1 Un jazmine -acetaminop 6-30 tablet by ity of hen 5-325 14:30: mouth [place] mg tablet 15 every 6 Medical (six) Branch hours as needed. thyroid 2021-0 Yes 60mg Take 60 mg [facility] (ARMOUR 6-30 by mouth ity of THYROID) 60 14:30: every [place] mg tablet 15 morning. Medica l Branch hydrOXYchlo 2021-0 Yes 200mg Take 200 U nivers roQUINE 200 6-30 mg by ity of mg tablet 14:30: mouth [place] 15 daily. Medical Branch ALPRAZolam 2021-0 Yes .5mg Take 0.5 [facility] vers 0.5 mg 6-30 mg by ity of tablet 14:30: mouth 3 [place] 15 (three) Medical times Branch daily as needed. PARoxetine 2022-0 Yes 5mg Take 5 mg [facility] 10 mg 6-30 by mouth ity of tablet 14:30: daily. [place] 15 Medical Branch HYDROcodone 2021-0 Yes 1{tbl} Take 1 Un jazmine -acetaminop 6-30 tablet by ity of hen 5-325 14:30: mouth [place] mg tablet 15 every 6 Medical (six) Branch hours as needed. thyroid 2022-0 Yes 60mg Take 60 mg [facility] (ARMOUR 6-30 by mouth ity of THYROID) 60 14:30: every [place] mg tablet 15 morning. Medica l Branch hydrOXYchlo 2021-0 Yes 200mg Take 200 U nivers roQUINE 200 6-30 mg by ity of mg tablet 14:30: mouth [place] 15 daily. Medical Branch ALPRAZolam 2021-0 Yes .5mg Take 0.5 [facility] vers 0.5 mg 6-30 mg by ity of tablet 14:30: mouth 3 [place] 15 (three) Medical times Branch daily as needed. PARoxetine 2-0 Yes 5mg Take 5 mg [facility] 10 mg 6-30 by mouth ity of tablet 14:30: daily. [place] 15 Medical Branch HYDROcodone 2021-0 Yes 1{tbl} Take 1 Un jazmine -acetaminop 6-30 tablet by ity of hen 5-325 14:30: mouth [place] mg tablet 15 every 6 Medical (six) Branch hours as needed. thyroid 2021-0 Yes 60mg Take 60 mg [facility] (ARMOUR 6-30 by mouth ity of THYROID) 60 14:30: every [place] mg tablet 15 morning. Medica l Branch hydrOXYchlo 2021-0 Yes 200mg Take 200 U nivers roQUINE 200 6-30 mg by ity of mg tablet 14:30: mouth [place] 15 daily. Medical Branch ALPRAZolam 2021-0 Yes .5mg Take 0.5 [facility] vers 0.5 mg 6-30 mg by ity of tablet 14:30: mouth 3 [place] 15 (three) Medical times Branch daily as needed. PARoxetine 2-0 Yes 5mg Take 5 mg [facility] 10 mg 6-30 by mouth ity of tablet 14:30: daily. [place] 15 Medical Branch HYDROcodone 2-0 Yes 1{tbl} Take 1 Un jazmine -acetaminop 6-30 tablet by ity of hen 5-325 14:30: mouth [place] mg tablet 15 every 6 Medical (six) Branch hours as needed. thyroid 2022-0 Yes 60mg Take 60 mg [facility] (ARMOUR 6-30 by mouth ity of THYROID) 60 14:30: every [place] mg tablet 15 morning. Medica l Branch hydrOXYchlo 2022-0 Yes 200mg Take 200 U nivers roQUINE 200 6-30 mg by ity of mg tablet 14:30: mouth [place] 15 daily. Medical Branch ALPRAZolam 2021-0 Yes .5mg Take 0.5 [facility] vers 0.5 mg 6-30 mg by ity of tablet 14:30: mouth 3 [place] 15 (three) Medical times Branch daily as needed. PARoxetine 2021-0 Yes 5mg Take 5 mg [facility] 10 mg 6-30 by mouth ity of tablet 14:30: daily. [place] 15 Medical Branch HYDROcodone 2021-0 Yes 1{tbl} Take 1 Un jazmine -acetaminop 6-30 tablet by ity of hen 5-325 14:30: mouth [place] mg tablet 15 every 6 Medical (six) Branch hours as needed. thyroid 2021-0 Yes 60mg Take 60 mg [facility] (ARMOUR 6-30 by mouth ity of THYROID) 60 14:30: every [place] mg tablet 15 morning. Medica l Branch hydrOXYchlo 0 Yes 200mg Take 200 U nivers roQUINE 200 6-30 mg by ity of mg tablet 14:30: mouth [place] 15 daily. Medical Branch ALPRAZolam 0 Yes .5mg Take 0.5 [facility] vers 0.5 mg 6-30 mg by ity of tablet 14:30: mouth 3 [place] 15 (three) Medical times Branch daily as needed. PARoxetine 2021-0 Yes 5mg Take 5 mg [facility] j[facility] 10 mg 6-30 by mouth ity of tablet 14:30: daily. [address] HYDROcodone 2021-0 Yes 1{tbl} Take 1 Un jazmine -acetaminop 6-30 tablet by ity of hen 5-325 14:30: mouth [place] mg tablet 15 every 6 Medical (six) Branch hours as needed. thyroid 2021-0 Yes 60mg Take 60 mg [facility] (ARMOUR 6-30 by mouth ity of THYROID) 60 14:30: every [place] mg tablet 15 morning. Medica l Branch hydrOXYchlo 2021-0 Yes 200mg Take 200 U nivers roQUINE 200 6-30 mg by ity of mg tablet 14:30: mouth [place] 15 daily. Medical Branch ALPRAZolam 2021-0 Yes .5mg Take 0.5 [facility] vers 0.5 mg 6-30 mg by ity of tablet 14:30: mouth 3 [place] 15 (three) Medical times Branch daily as needed. PARoxetine 2022-0 Yes 5mg Take 5 mg [facility] 10 mg 6-30 by mouth ity of tablet 14:30: daily. [address] Branch HYDROcodone 2-0 Yes 1{tbl} Take 1 Un jazmine -acetaminop 6-30 tablet by ity of hen 5-325 14:30: mouth [place] mg tablet 15 every 6 Medical (six) Branch hours as needed. thyroid 2022-0 Yes 60mg Take 60 mg [facility] (ARMOUR 6-30 by mouth ity of THYROID) 60 14:30: every [place] mg tablet 15 morning. Medica l Branch hydrOXYchlo 2021-0 Yes 200mg Take 200 U nivers roQUINE 200 6-30 mg by ity of mg tablet 14:30: mouth [place] 15 daily. Medical Branch ALPRAZolam 2021-0 Yes .5mg Take 0.5 [facility] vers 0.5 mg 6-30 mg by ity of tablet 14:30: mouth 3 [place] 15 (three) Medical times Branch daily as needed. PARoxetine 2-0 Yes 5mg Take 5 mg Un j[facility] 10 mg 6-30 by mouth ity of tablet 14:30: daily. [address] HYDROcodone 2021-0 Yes 1{tbl} Take 1 Un jazmine -acetaminop 6-30 tablet by ity of hen 5-325 14:30: mouth [place] mg tablet 15 every 6 Medical (six) Branch hours as needed. thyroid 2-0 Yes 60mg Take 60 mg [facility] (ARMOUR 6-30 by mouth ity of THYROID) 60 14:30: every [place] mg tablet 15 morning. Medica l Branch hydrOXYchlo 2021-0 Yes 200mg Take 200 U nivers roQUINE 200 6-30 mg by ity of mg tablet 14:30: mouth [place] 15 daily. Medical Branch ALPRAZolam 2-0 Yes .5mg Take 0.5 [facility] vers 0.5 mg 6-30 mg by ity of tablet 14:30: mouth 3 [place] 15 (three) Medical times Branch daily as needed. PARoxetine 2022-0 Yes 5mg Take 5 mg Un j[facility] 10 mg 6-30 by mouth ity of tablet 14:30: daily. [place] [address] Medical Branch HYDROcodone 2022-0 Yes 1{tbl} Take 1 Un jazmine -acetaminop 6-30 tablet by ity of hen 5-325 14:30: mouth [place] mg tablet 15 every 6 Medical (six) Branch hours as needed. thyroid 2021-0 Yes 60mg Take 60 mg [facility] (ARMOUR 6-30 by mouth ity of THYROID) 60 14:30: every [place] mg tablet 15 morning. Medica l Branch hydrOXYchlo 0 Yes 200mg Take 200 U nivers roQUINE 200 6-30 mg by ity of mg tablet 14:30: mouth [place] 15 daily. Medical Branch ALPRAZolam 0 Yes .5mg Take 0.5 [facility] vers 0.5 mg 6-30 mg by ity of tablet 14:30: mouth 3 [place] 15 (three) Medical times Branch daily as needed. PARoxetine 2021-0 Yes 5mg Take 5 mg Un j[facility] 10 mg 6-30 by mouth ity of tablet 14:30: daily. [place] [address] Medical Branch HYDROcodone 0 Yes 1{tbl} Take 1 Un jazmine -acetaminop 6-30 tablet by ity of hen 5-325 14:30: mouth [place] mg tablet 15 every 6 Medical (six) Branch hours as needed. thyroid 2021-0 Yes 60mg Take 60 mg [facility] (ARMOUR 6-30 by mouth ity of THYROID) 60 14:30: every [place] mg tablet 15 morning. Medica l Branch hydrOXYchlo 0 Yes 200mg Take 200 U nivers roQUINE 200 6-30 mg by ity of mg tablet 14:30: mouth [place] 15 daily. Medical Branch ALPRAZolam 0 Yes .5mg Take 0.5 [facility] vers 0.5 mg 6-30 mg by ity of tablet 14:30: mouth 3 [place] 15 (three) Medical times Branch daily as needed. PARoxetine 2021-0 Yes 5mg Take 5 mg Un j[facility]mine 10 mg 6-30 by mouth ity of tablet 14:30: daily. [place] [address] Medical Branch HYDROcodone 2021-0 Yes 1{tbl} Take 1 Un jazmine -acetaminop 6-30 tablet by ity of hen 5-325 14:30: mouth [place] mg tablet 15 every 6 Medical (six) Branch hours as needed. thyroid 2021-0 Yes 60mg Take 60 mg [facility] (ARMOUR 6-30 by mouth ity of THYROID) 60 14:30: every [place] mg tablet 15 morning. Medica l Branch hydrOXYchlo 2021-0 Yes 200mg Take 200 U nivers roQUINE 200 6-30 mg by ity of mg tablet 14:30: mouth [place] 15 daily. Medical Branch ALPRAZolam 2021-0 Yes .5mg Take 0.5 [facility] vers 0.5 mg 6-30 mg by ity of tablet 14:30: mouth 3 [place] 15 (three) Medical times Branch daily as needed. PARoxetine 2021-0 Yes 5mg Take 5 mg Un j[facility]mine 10 mg 6-30 by mouth ity of tablet 14:30: daily. [place] 15 Medical Branch HYDROcodone 2021-0 Yes 1{tbl} Take 1 Un jazmine -acetaminop 6-30 tablet by ity of hen 5-325 14:30: mouth [place] mg tablet 15 every 6 Medical (six) Branch hours as needed. thyroid 2021-0 Yes 60mg Take 60 mg [facility] (ARMOUR 6-30 by mouth ity of THYROID) 60 14:30: every [place] mg tablet 15 morning. Medica l Branch hydrOXYchlo 2021-0 Yes 200mg Take 200 U nivers roQUINE 200 6-30 mg by ity of mg tablet 14:30: mouth [place] 15 daily. Medical Branch ALPRAZolam 2021-0 Yes .5mg Take 0.5 [facility] vers 0.5 mg 6-30 mg by ity of tablet 14:30: mouth 3 [place] 15 (three) Medical times Branch daily as needed. PARoxetine 2021-0 Yes 5mg Take 5 mg [facility] j[facility]mine 10 mg 6-30 by mouth ity of tablet 14:30: daily. [place] 15 Medical Branch HYDROcodone 2021-0 Yes 1{tbl} Take 1 Un jazmine -acetaminop 6-30 tablet by ity of hen 5-325 14:30: mouth [place] mg tablet 15 every 6 Medical (six) Branch hours as needed. thyroid 2-0 Yes 60mg Take 60 mg [facility] (ARMOUR 6-30 by mouth ity of THYROID) 60 14:30: every [place] mg tablet 15 morning. Medica l Branch hydrOXYchlo 2021-0 Yes 200mg Take 200 U nivers roQUINE 200 6-30 mg by ity of mg tablet 14:30: mouth [place] 15 daily. Medical Branch ALPRAZolam 2021-0 Yes .5mg Take 0.5 [facility] vers 0.5 mg 6-30 mg by ity of tablet 14:30: mouth 3 [place] 15 (three) Medical times Branch daily as needed. PARoxetine 2022-0 Yes 5mg Take 5 mg [facility] 10 mg 6-30 by mouth ity of tablet 14:30: daily. [address] Branch HYDROcodone 2021-0 Yes 1{tbl} Take 1 Un jazmine -acetaminop 6-30 tablet by ity of hen 5-325 14:30: mouth [place] mg tablet 15 every 6 Medical (six) Branch hours as needed. thyroid 2021-0 Yes 60mg Take 60 mg [facility] (ARMOUR 6-30 by mouth ity of THYROID) 60 14:30: every [place] mg tablet 15 morning. Medica l [facility] hydrOXYchlo 2021-0 Yes 200mg Take 200 U nivers roQUINE 200 6-30 mg by ity of mg tablet 14:30: mouth [place] 15 daily. Medical Branch ALPRAZolam 2021-0 Yes .5mg Take 0.5 Uni vers 0.5 mg 6-30 mg by ity of tablet 14:30: mouth 3 [place] 15 (three) Medical times Branch daily as needed. PARoxetine 2021-0 Yes 5mg Take 5 mg [facility] 10 mg 6-30 by mouth ity of tablet 14:30: daily. [address] Branch HYDROcodone 2021-0 Yes 1{tbl} Take 1 [facility] jazmine -acetaminop 6-30 tablet by ity of hen 5-325 14:30: mouth [place] mg tablet 15 every 6 Medical (six) Branch hours as needed. thyroid 2-0 Yes 60mg Take 60 mg [facility] (ARMOUR 6-30 by mouth ity of THYROID) 60 14:30: every [place] mg tablet 15 morning. Medica l [facility] hydrOXYchlo 2021-0 Yes 200mg Take 200 U nivers roQUINE 200 6-30 mg by ity of mg tablet 14:30: mouth [place] 15 daily. Medical Branch ALPRAZolam 2021-0 Yes .5mg Take 0.5 Uni vers 0.5 mg 6-30 mg by ity of tablet 14:30: mouth 3 [place] 15 (three) Medical times Branch daily as needed. PARoxetine 2022-0 Yes 5mg Take 5 mg [facility] 10 mg 6-30 by mouth ity of tablet 14:30: daily. [place] [address] [facility] Branch HYDROcodone 2021-0 Yes 1{tbl} Take 1 Un jazmine -acetaminop 6-30 tablet by ity of hen 5-325 14:30: mouth [place] mg tablet 15 every 6 Medical (six) Branch hours as needed. thyroid 2022-0 Yes 60mg Take 60 mg [facility] (ARMOUR 6-30 by mouth ity of THYROID) 60 14:30: every [place] mg tablet 15 morning. [facility]ica l [facility] hydrOXYchlo 2021-0 Yes 200mg Take 200 U nivers roQUINE 200 6-30 mg by ity of mg tablet 14:30: mouth [place] 15 daily. Medical Branch ALPRAZolam 2021-0 Yes .5mg Take 0.5 Uni vers 0.5 mg 6-30 mg by ity of tablet 14:30: mouth 3 [place] 15 (three) Medical times Branch daily as needed. PARoxetine 2021-0 Yes 5mg Take 5 mg [facility] 10 mg 6-30 by mouth ity of tablet 14:30: daily. [place] [address] Medical Branch HYDROcodone 2021-0 Yes 1{tbl} Take 1 [facility] jazmine -acetaminop 6-30 tablet by ity of hen 5-325 14:30: mouth [place] mg tablet 15 every 6 Medical (six) Branch hours as needed. thyroid 2021-0 Yes 60mg Take 60 mg [facility] (ARMOUR 6-30 by mouth ity of THYROID) 60 14:30: every [place] mg tablet 15 morning. Medica l [facility] hydrOXYchlo 2021-0 Yes 200mg Take 200 U nivers roQUINE 200 6-30 mg by ity of mg tablet 14:30: mouth [place] 15 daily. Medical Branch ALPRAZolam 2021-0 Yes .5mg Take 0.5 Uni vers 0.5 mg 6-30 mg by ity of tablet 14:30: mouth 3 [place] 15 (three) Medical times Branch daily as needed. PARoxetine 2-0 Yes 5mg Take 5 mg [facility] 10 mg 6-30 by mouth ity of tablet 14:30: daily. [place] [address] [facility] Branch HYDROcodone 2021-0 Yes 1{tbl} Take 1 [facility] jazmine -acetaminop 6-30 tablet by ity of hen 5-325 14:30: mouth [place] mg tablet 15 every 6 Medical (six) Branch hours as needed. thyroid 0 Yes 60mg Take 60 mg [facility] (ARMOUR 6-30 by mouth ity of THYROID) 60 14:30: every [place] mg tablet 15 morning. Med[facility] l [facility] hydrOXYchlo 0 Yes 200mg Take 200 U nivers roQUINE 200 6-30 mg by ity of mg tablet 14:30: mouth [place] 15 daily. Medical Branch traMADoL 50 2021-0 Yes [id number] 50mg Take 1 [facility] mg tablet 1-10 tablet by ity o f 00:00: mouth [place] 00 every 6 Medical (six) Branch hours as needed (pain). Indication s: acute pain lidocaine 5 2021-0 Yes [id number] Apply one [facility] % (700 1-10 patch to ity of mg/patch) 00:00: most [place] patch 00 painful Medical area up to Branch 12 hours a day, as needed for pain. PHARMACIST : dispense one box ondansetron 2021-0 Yes [id number] 8mg Take 1 [facility] 8 mg tablet 1-10 tablet by ity of 00:00: mouth [place] 00 every 8 Medical (eight) Branch hours as needed for Nausea and Vomiting (N/V). traMADoL 50 2021-0 Yes [id number] 50mg Take 1 [facility] mg tablet 1-10 tablet by ity o f 00:00: mouth [place] 00 every 6 Medical (six) Branch hours as needed (pain). Indication s: acute pain lidocaine 5 2021-0 Yes [id number] Apply one [facility] % (700 1-10 patch to ity of mg/patch) 00:00: most [place] patch 00 painful Medical area up to Branch 12 hours a day, as needed for pain. PHARMACIST : dispense one box ondansetron 2021-0 Yes [id number] 8mg Take 1 [facility] 8 mg tablet 1-10 tablet by ity of 00:00: mouth [place] 00 every 8 Medical (eight) Branch hours as needed for Nausea and Vomiting (N/V). traMADoL 50 2021-0 Yes [id number] 50mg Take 1 [facility] mg tablet 1-10 tablet by ity o f 00:00: mouth [place] 00 every 6 Medical (six) Branch hours as needed (pain). Indication s: acute pain lidocaine 5 2021-0 Yes [id number] Apply one [facility] % (700 1-10 patch to ity of mg/patch) 00:00: most [place] patch 00 painful Medical area up to Branch 12 hours a day, as needed for pain. PHARMACIST : dispense one box ondansetron 2021-0 Yes [id number] 8mg Take 1 [facility] 8 mg tablet 1-10 tablet by ity of 00:00: mouth [place] 00 every 8 Medical (eight) Branch hours as needed for Nausea and Vomiting (N/V). traMADoL 50 2021-0 Yes [id number] 50mg Take 1 [facility] mg tablet 1-10 tablet by ity o f 00:00: mouth [place] 00 every 6 Medical (six) Branch hours as needed (pain). Indication s: acute pain lidocaine 5 2021-0 Yes [id number] Apply one [facility] % (700 1-10 patch to ity of mg/patch) 00:00: most [place] patch 00 painful Medical area up to Branch 12 hours a day, as needed for pain. PHARMACIST : dispense one box ondansetron 2021-0 Yes [id number] 8mg Take 1 [facility] 8 mg tablet 1-10 tablet by ity of 00:00: mouth [place] 00 every 8 Medical (eight) Branch hours as needed for Nausea and Vomiting (N/V). traMADoL 50 2021-0 Yes [id number] 50mg Take 1 [facility] mg tablet 1-10 tablet by ity o f 00:00: mouth [place] 00 every 6 Medical (six) Branch hours as needed (pain). Indication s: acute pain lidocaine 5 2021-0 Yes [id number] Apply one [facility] % (700 1-10 patch to ity of mg/patch) 00:00: most [place] patch 00 painful Medical area up to Branch 12 hours a day, as needed for pain. PHARMACIST : dispense one box ondansetron 2021-0 Yes [id number] 8mg Take 1 [facility] 8 mg tablet 1-10 tablet by ity of 00:00: mouth [place] 00 every 8 Medical (eight) Branch hours as needed for Nausea and Vomiting (N/V). traMADoL 50 2021-0 Yes [id number] 50mg Take 1 [facility] mg tablet 1-10 tablet by ity o f 00:00: mouth [place] 00 every 6 Medical (six) Branch hours as needed (pain). Indication s: acute pain lidocaine 5 2021-0 Yes [id number] Apply one [facility] % (700 1-10 patch to ity of mg/patch) 00:00: most [place] patch 00 painful Medical area up to Branch 12 hours a day, as needed for pain. PHARMACIST : dispense one box ondansetron 2021-0 Yes [id number] 8mg Take 1 [facility] 8 mg tablet 1-10 tablet by ity of 00:00: mouth [place] 00 every 8 Medical (eight) Branch hours as needed for Nausea and Vomiting (N/V). traMADoL 50 2021-0 Yes [id number] 50mg Take 1 [facility] mg tablet 1-10 tablet by ity o f 00:00: mouth [place] 00 every 6 Medical (six) Branch hours as needed (pain). Indication s: acute pain lidocaine 5 2021-0 Yes [id number] Apply one [facility] % (700 1-10 patch to ity of mg/patch) 00:00: most [place] patch 00 painful Medical area up to Branch 12 hours a day, as needed for pain. PHARMACIST : dispense one box ondansetron 2021-0 Yes [id number] 8mg Take 1 [facility] 8 mg tablet 1-10 tablet by ity of 00:00: mouth [place] 00 every 8 Medical (eight) Branch hours as needed for Nausea and Vomiting (N/V). traMADoL 50 2021-0 Yes [id number] 50mg Take 1 [facility] mg tablet 1-10 tablet by ity o f 00:00: mouth [place] 00 every 6 Medical (six) Branch hours as needed (pain). Indication s: acute pain lidocaine 5 2021-0 Yes [id number] Apply one [facility] % (700 1-10 patch to ity of mg/patch) 00:00: most [place] patch 00 painful Medical area up to Branch 12 hours a day, as needed for pain. PHARMACIST : dispense one box ondansetron 2021-0 Yes [id number] 8mg Take 1 [facility] 8 mg tablet 1-10 tablet by ity of 00:00: mouth [place] 00 every 8 Medical (eight) Branch hours as needed for Nausea and Vomiting (N/V). traMADoL 50 2021-0 Yes [id number] 50mg Take 1 [facility] mg tablet 1-10 tablet by ity o f 00:00: mouth [place] 00 every 6 Medical (six) Branch hours as needed (pain). Indication s: acute pain lidocaine 5 2021-0 Yes [id number] Apply one [facility] % (700 1-10 patch to ity of mg/patch) 00:00: most [place] patch 00 painful Medical area up to Branch 12 hours a day, as needed for pain. PHARMACIST : dispense one box ondansetron 2021-0 Yes [id number] 8mg Take 1 [facility] 8 mg tablet 1-10 tablet by ity of 00:00: mouth [place] 00 every 8 Medical (eight) Branch hours as needed for Nausea and Vomiting (N/V). traMADoL 50 2021-0 Yes [id number] 50mg Take 1 [facility] mg tablet 1-10 tablet by ity o f 00:00: mouth [place] 00 every 6 Medical (six) Branch hours as needed (pain). Indication s: acute pain lidocaine 5 2021-0 Yes [id number] Apply one [facility] % (700 1-10 patch to ity of mg/patch) 00:00: most [place] patch 00 painful Medical area up to Branch 12 hours a day, as needed for pain. PHARMACIST : dispense one box ondansetron 2021-0 Yes [id number] 8mg Take 1 [facility] 8 mg tablet 1-10 tablet by ity of 00:00: mouth [place] 00 every 8 Medical (eight) Branch hours as needed for Nausea and Vomiting (N/V). traMADoL 50 2021-0 Yes [id number] 50mg Take 1 [facility] mg tablet 1-10 tablet by ity o f 00:00: mouth [place] 00 every 6 Medical (six) Branch hours as needed (pain). Indication s: acute pain lidocaine 5 2021-0 Yes [id number] Apply one [facility] % (700 1-10 patch to ity of mg/patch) 00:00: most [place] patch 00 painful Medical area up to Branch 12 hours a day, as needed for pain. PHARMACIST : dispense one box ondansetron 2021-0 Yes [id number] 8mg Take 1 [facility] 8 mg tablet 1-10 tablet by ity of 00:00: mouth [place] 00 every 8 Medical (eight) Branch hours as needed for Nausea and Vomiting (N/V). traMADoL 50 2021-0 Yes [id number] 50mg Take 1 [facility] mg tablet 1-10 tablet by ity o f 00:00: mouth [place] 00 every 6 Medical (six) Branch hours as needed (pain). Indication s: acute pain lidocaine 5 2021-0 Yes [id number] Apply one [facility] % (700 1-10 patch to ity of mg/patch) 00:00: most [place] patch 00 painful Medical area up to Branch 12 hours a day, as needed for pain. PHARMACIST : dispense one box ondansetron 2021-0 Yes [id number] 8mg Take 1 [facility] 8 mg tablet 1-10 tablet by ity of 00:00: mouth [place] 00 every 8 Medical (eight) Branch hours as needed for Nausea and Vomiting (N/V). traMADoL 50 2021-0 Yes [id number] 50mg Take 1 [facility] mg tablet 1-10 tablet by ity o f 00:00: mouth [place] 00 every 6 Medical (six) Branch hours as needed (pain). Indication s: acute pain lidocaine 5 2021-0 Yes [id number] Apply one [facility] % (700 1-10 patch to ity of mg/patch) 00:00: most [place] patch 00 painful Medical area up to Branch 12 hours a day, as needed for pain. PHARMACIST : dispense one box ondansetron 2021-0 Yes [id number] 8mg Take 1 [facility] 8 mg tablet 1-10 tablet by ity of 00:00: mouth [place] 00 every 8 Medical (eight) Branch hours as needed for Nausea and Vomiting (N/V). traMADoL 50 2021-0 Yes [id number] 50mg Take 1 [facility] mg tablet 1-10 tablet by ity o f 00:00: mouth [place] 00 every 6 Medical (six) Branch hours as needed (pain). Indication s: acute pain lidocaine 5 2021-0 Yes [id number] Apply one [facility] % (700 1-10 patch to ity of mg/patch) 00:00: most [place] patch 00 painful Medical area up to Branch 12 hours a day, as needed for pain. PHARMACIST : dispense one box ondansetron 2021-0 Yes [id number] 8mg Take 1 [facility] 8 mg tablet 1-10 tablet by ity of 00:00: mouth [place] 00 every 8 Medical (eight) Branch hours as needed for Nausea and Vomiting (N/V). traMADoL 50 2-0 Yes [id number] 50mg Take 1 [facility] mg tablet 1-10 tablet by ity o f 00:00: mouth [place] 00 every 6 Medical (six) Branch hours as needed (pain). Indication s: acute pain lidocaine 5 2021-0 Yes [id number] Apply one [facility] % (700 1-10 patch to ity of mg/patch) 00:00: most [place] patch 00 painful Medical area up to Branch 12 hours a day, as needed for pain. PHARMACIST : dispense one box ondansetron 2021-0 Yes [id number] 8mg Take 1 [facility] 8 mg tablet 1-10 tablet by ity of 00:00: mouth [place] 00 every 8 Medical (eight) Branch hours as needed for Nausea and Vomiting (N/V). traMADoL 50 2021-0 Yes [id number] 50mg Take 1 [facility] mg tablet 1-10 tablet by ity o f 00:00: mouth [place] 00 every 6 Medical (six) Branch hours as needed (pain). Indication s: acute pain lidocaine 5 2021-0 Yes [id number] Apply one [facility] % (700 1-10 patch to ity of mg/patch) 00:00: most [place] patch 00 painful Medical area up to Branch 12 hours a day, as needed for pain. PHARMACIST : dispense one box ondansetron 2021-0 Yes [id number] 8mg Take 1 [facility] 8 mg tablet 1-10 tablet by ity of 00:00: mouth [place] 00 every 8 Medical (eight) Branch hours as needed for Nausea and Vomiting (N/V). traMADoL 50 2021-0 Yes [id number] 50mg Take 1 [facility] mg tablet 1-10 tablet by ity o f 00:00: mouth [place] 00 every 6 Medical (six) Branch hours as needed (pain). Indication s: acute pain lidocaine 5 2021-0 Yes [id number] Apply one [facility] % (700 1-10 patch to ity of mg/patch) 00:00: most [place] patch 00 painful Medical area up to Branch 12 hours a day, as needed for pain. PHARMACIST : dispense one box ondansetron 2021-0 Yes [id number] 8mg Take 1 [facility] 8 mg tablet 1-10 tablet by ity of 00:00: mouth [place] 00 every 8 Medical (eight) Branch hours as needed for Nausea and Vomiting (N/V). traMADoL 50 2-0 Yes [id number] 50mg Take 1 [facility] mg tablet 1-10 tablet by ity o f 00:00: mouth [place] 00 every 6 Medical (six) Branch hours as needed (pain). Indication s: acute pain lidocaine 5 2021-0 Yes [id number] Apply one [facility] % (700 1-10 patch to ity of mg/patch) 00:00: most [place] patch 00 painful Medical area up to Branch 12 hours a day, as needed for pain. PHARMACIST : dispense one box ondansetron 2021-0 Yes [id number] 8mg Take 1 [facility] 8 mg tablet 1-10 tablet by ity of 00:00: mouth [place] 00 every 8 Medical (eight) Branch hours as needed for Nausea and Vomiting (N/V). traMADoL 50 2021-0 Yes [id number] 50mg Take 1 [facility] mg tablet 1-10 tablet by ity o f 00:00: mouth [place] 00 every 6 Medical (six) Branch hours as needed (pain). Indication s: acute pain lidocaine 5 2021-0 Yes [id number] Apply one [facility] % (700 1-10 patch to ity of mg/patch) 00:00: most [place] patch 00 painful Medical area up to Branch 12 hours a day, as needed for pain. PHARMACIST : dispense one box ondansetron 2021-0 Yes [id number] 8mg Take 1 [facility] 8 mg tablet 1-10 tablet by ity of 00:00: mouth [place] 00 every 8 Medical (eight) Branch hours as needed for Nausea and Vomiting (N/V). traMADoL 50 2021-0 Yes [id number] 50mg Take 1 [facility] mg tablet 1-10 tablet by ity o f 00:00: mouth [place] 00 every 6 Medical (six) Branch hours as needed (pain). Indication s: acute pain lidocaine 5 2021-0 Yes [id number] Apply one [facility] % (700 1-10 patch to ity of mg/patch) 00:00: most [place] patch 00 painful Medical area up to Branch 12 hours a day, as needed for pain. PHARMACIST : dispense one box ondansetron 2021-0 Yes [id number] 8mg Take 1 [facility] 8 mg tablet 1-10 tablet by ity of 00:00: mouth [place] 00 every 8 Medical (eight) Branch hours as needed for Nausea and Vomiting (N/V). traMADoL 50 2-0 Yes [id number] 50mg Take 1 [facility] mg tablet 1-10 tablet by ity o f 00:00: mouth [place] 00 every 6 Medical (six) Branch hours as needed (pain). Indication s: acute pain lidocaine 5 2021-0 Yes [id number] Apply one [facility] % (700 1-10 patch to ity of mg/patch) 00:00: most [place] patch 00 painful Medical area up to Branch 12 hours a day, as needed for pain. PHARMACIST : dispense one box ondansetron 2021-0 Yes [id number] 8mg Take 1 [facility] 8 mg tablet 1-10 tablet by ity of 00:00: mouth [place] 00 every 8 Medical (eight) Branch hours as needed for Nausea and Vomiting (N/V). traMADoL 50 2021-0 Yes [id number] 50mg Take 1 [facility] mg tablet 1-10 tablet by ity o f 00:00: mouth [place] 00 every 6 Medical (six) Branch hours as needed (pain). Indication s: acute pain lidocaine 5 2021-0 Yes [id number] Apply one [facility] % (700 1-10 patch to ity of mg/patch) 00:00: most [place] patch 00 painful Medical area up to Branch 12 hours a day, as needed for pain. PHARMACIST : dispense one box ondansetron 2021-0 Yes [id number] 8mg Take 1 [facility] 8 mg tablet 1-10 tablet by ity of 00:00: mouth [place] 00 every 8 Medical (eight) Branch hours as needed for Nausea and Vomiting (N/V). traMADoL 50 2021-0 Yes [id number] 50mg Take 1 [facility] mg tablet 1-10 tablet by ity o f 00:00: mouth [place] 00 every 6 Medical (six) Branch hours as needed (pain). Indication s: acute pain lidocaine 5 2021-0 Yes [id number] Apply one [facility] % (700 1-10 patch to ity of mg/patch) 00:00: most [place] patch 00 painful Medical area up to Branch 12 hours a day, as needed for pain. PHARMACIST : dispense one box ondansetron 2021-0 Yes [id number] 8mg Take 1 [facility] 8 mg tablet 1-10 tablet by ity of 00:00: mouth [place] 00 every 8 Medical (eight) Branch hours as needed for Nausea and Vomiting (N/V). traMADoL 50 2-0 Yes [id number] 50mg Take 1 [facility] mg tablet 1-10 tablet by ity o f 00:00: mouth [place] 00 every 6 Medical (six) Branch hours as needed (pain). Indication s: acute pain lidocaine 5 2021-0 Yes [id number] Apply one [facility] % (700 1-10 patch to ity of mg/patch) 00:00: most [place] patch 00 painful Medical area up to Branch 12 hours a day, as needed for pain. PHARMACIST : dispense one box ondansetron 2-0 Yes [id number] 8mg Take 1 [facility] 8 mg tablet 1-10 tablet by ity of 00:00: mouth [place] 00 every 8 Medical (eight) Branch hours as needed for Nausea and Vomiting (N/V). traMADoL 50 2021-0 Yes [id number] 50mg Take 1 [facility] mg tablet 1-10 tablet by ity o f 00:00: mouth [place] 00 every 6 Medical (six) Branch hours as needed (pain). Indication s: acute pain lidocaine 5 2021-0 Yes [id number] Apply one [facility] % (700 1-10 patch to ity of mg/patch) 00:00: most [place] patch 00 painful Medical area up to Branch 12 hours a day, as needed for pain. PHARMACIST : dispense one box ondansetron 2021-0 Yes [id number] 8mg Take 1 [facility] 8 mg tablet 1-10 tablet by ity of 00:00: mouth [place] 00 every 8 Medical (eight) Branch hours as needed for Nausea and Vomiting (N/V). traMADoL 50 2021-0 Yes [id number] 50mg Take 1 [facility] mg tablet 1-10 tablet by ity o f 00:00: mouth [place] 00 every 6 Medical (six) Branch hours as needed (pain). Indication s: acute pain lidocaine 5 2021-0 Yes [id number] Apply one [facility] % (700 1-10 patch to ity of mg/patch) 00:00: most [place] patch 00 painful Medical area up to Branch 12 hours a day, as needed for pain. PHARMACIST : dispense one box ondansetron 2021-0 Yes [id number] 8mg Take 1 [facility] 8 mg tablet 1-10 tablet by ity of 00:00: mouth [place] 00 every 8 Medical (eight) Branch hours as needed for Nausea and Vomiting (N/V). traMADoL 50 2-0 Yes [id number] 50mg Take 1 [facility] mg tablet 1-10 tablet by ity o f 00:00: mouth [place] 00 every 6 Medical (six) Branch hours as needed (pain). Indication s: acute pain lidocaine 5 2021-0 Yes [id number] Apply one [facility] % (700 1-10 patch to ity of mg/patch) 00:00: most [place] patch 00 painful Medical area up to Branch 12 hours a day, as needed for pain. PHARMACIST : dispense one box ondansetron 2021-0 Yes [id number] 8mg Take 1 [facility] 8 mg tablet 1-10 tablet by ity of 00:00: mouth [place] 00 every 8 Medical (eight) Branch hours as needed for Nausea and Vomiting (N/V). traMADoL 50 2021-0 Yes [id number] 50mg Take 1 [facility] mg tablet 1-10 tablet by ity o f 00:00: mouth [place] 00 every 6 Medical (six) Branch hours as needed (pain). Indication s: acute pain lidocaine 5 2021-0 Yes [id number] Apply one [facility] % (700 1-10 patch to ity of mg/patch) 00:00: most [place] patch 00 painful Medical area up to Branch 12 hours a day, as needed for pain. PHARMACIST : dispense one box ondansetron 2021-0 Yes [id number] 8mg Take 1 [facility] 8 mg tablet 1-10 tablet by ity of 00:00: mouth [place] every 8 Medical (eight) Branch hours as needed for Nausea and Vomiting (N/V). DILT-XR 120 2020-0 Yes Un[facility] s mg 24 hr 8-26 ity of capsule 00:00: [place] [facility] DILT-XR 120 2020-0 Yes [facility] mg 24 hr 8-26 ity of capsule 00:00: [place] [facility] DILT-XR 120 2020-0 Yes [facility] mg 24 hr 8-26 ity of capsule 00:00: [place] [facility] DILT-XR 120 2020-0 Yes [facility] mg 24 hr 8-26 ity of capsule 00:00: [place] [facility] DILT-XR 120 2020-0 Yes [facility] mg 24 hr 8-26 ity of capsule 00:00: [place] [facility] DILT-XR 120 2020-0 Yes [facility] mg 24 hr 8-26 ity of capsule 00:00: [place] [facility] DILT-XR 120 2020-0 Yes [facility] mg 24 hr 8-26 ity of capsule 00:00: [place] [facility] DILT-XR 120 2020-0 Yes [facility] mg 24 hr 8-26 ity of capsule 00:00: [place] [facility] DILT-XR 120 2021-0 Yes [facility] mg 24 hr 8-26 ity of capsule 00:00: [place] [facility] DILT-XR 120 2020-0 Yes [facility] mg 24 hr 8-26 ity of capsule 00:00: [place] [facility] DILT-XR 120 2020-0 Yes [facility] mg 24 hr 8-26 ity of capsule 00:00: [place] [facility] DILT-XR 120 2020-0 Yes [facility] mg 24 hr 8-26 ity of capsule 00:00: [place] [facility] DILT-XR 120 2020-0 Yes [facility] mg 24 hr 8-26 ity of capsule 00:00: [place] [facility] DILT-XR 120 2020-0 Yes [facility] mg 24 hr 8-26 ity of capsule 00:00: [place] [facility] DILT-XR 120 2020-0 Yes [facility] mg 24 hr 8-26 ity of capsule 00:00: [place] [facility] DILT-XR 120 2020-0 Yes [facility] mg 24 hr 8-26 ity of capsule 00:00: [place] [facility] DILT-XR 120 2020-0 Yes [facility] mg 24 hr 8-26 ity of capsule 00:00: [place] [facility] DILT-XR 120 2020-0 Yes [facility] mg 24 hr 8-26 ity of capsule 00:00: [place] [facility] DILT-XR 120 2020-0 Yes [facility] mg 24 hr 8-26 ity of capsule 00:00: [place] [facility] DILT-XR 120 2020-0 Yes [facility] mg 24 hr 8-26 ity of capsule 00:00: [place] [facility] DILT-XR 120 2020-0 Yes [facility] mg 24 hr 8-26 ity of capsule 00:00: [place] [facility] DILT-XR 120 2020-0 Yes [facility] mg 24 hr 8-26 ity of capsule 00:00: [place] [facility] DILT-XR 120 2020-0 Yes [facility] mg 24 hr 8-26 ity of capsule 00:00: [place] [facility] DILT-XR 120 2020-0 Yes [facility] mg 24 hr 8-26 ity of capsule 00:00: [place] [facility] DILT-XR 120 2021-0 Yes [facility] mg 24 hr 8-26 ity of capsule 00:00: [place] [facility] DILT-XR 120 2020-0 Yes [facility] mg 24 hr 8-26 ity of capsule 00:00: [place] [facility] DILT-XR 120 1-0 Yes [facility] mg 24 hr 8-26 ity of capsule 00:00: [place] [facility] DILT-XR 120 1-0 Yes [facility] mg 24 hr 8-26 ity of capsule 00:00: [place] [facility] losartan 25 1-0 Yes [facility] mg tablet 8-25 ity of 00:00: [place] [facility] losartan 25 1-0 Yes [facility] mg tablet 8-25 ity of 00:00: [place] [facility] losartan 25 1-0 Yes [facility] mg tablet 8-25 ity of 00:00: [place] [facility] losartan 25 1-0 Yes [facility] mg tablet 8-25 ity of 00:00: [place] [facility] losartan 25 1-0 Yes [facility] mg tablet 8-25 ity of 00:00: [place] [facility] losartan 25 1-0 Yes [facility] mg tablet 8-25 ity of 00:00: [place] [facility] losartan 25 1-0 Yes [facility] mg tablet 8-25 ity of 00:00: [place] [facility] losartan 25 1-0 Yes [facility] mg tablet 8-25 ity of 00:00: [place] [facility] losartan 25 1-0 Yes [facility] mg tablet 8-25 ity of 00:00: [place] [facility] losartan 25 1-0 Yes [facility] mg tablet 8-25 ity of 00:00: [place] [facility] losartan 25 1-0 Yes [facility] mg tablet 8-25 ity of 00:00: [place] [facility] losartan 25 1-0 Yes [facility] mg tablet 8-25 ity of 00:00: [place] [facility] losartan 25 1-0 Yes [facility] mg tablet 8-25 ity of 00:00: [place] [facility] losartan 25 1-0 Yes [facility] mg tablet 8-25 ity of 00:00: [place] [facility] losartan 25 1-0 Yes Un[facility] mg tablet 8-25 ity of 00:00: [place] [address] [facility] Branch losartan 25 2020-0 Yes Un[facility] s mg tablet 8-25 ity of 00:00: [place] [facility] losartan 25 2020-0 Yes [facility] mg tablet 8-25 ity of 00:00: [place] [facility] losartan 25 2020-0 Yes [facility] mg tablet 8-25 ity of 00:00: [place] [facility] losartan 25 2020-0 Yes Un[facility] s mg tablet 8-25 ity of 00:00: [facility] losartan 25 2020-0 Yes Univer s mg tablet 8-25 ity of 00:00: [facility] losartan 25 2020-0 Yes Univer s mg tablet 8-25 ity of 00:00: [facility] losartan 25 2020-0 Yes Univer s mg tablet 8-25 ity of 00:00: [facility] losartan 25 2020-0 Yes Univer s mg tablet 8-25 ity of 00:00: [facility] losartan 25 2020-0 Yes Univer s mg tablet 8-25 ity of 00:00: [facility] losartan 25 2020-0 Yes Univer s mg tablet 8-25 ity of 00:00: [facility] losartan 25 2020-0 Yes Univer s mg tablet 8-25 ity of 00:00: [facility] losartan 25 2020-0 Yes Univer s mg tablet 8-25 ity of 00:00: [facility] losartan 25 2020-0 Yes Univer s mg tablet 8-25 ity of 00:00: [facility] apixaban 0 Yes 2.5mg Take 1 Univer s 2.5 mg 2-11 tablet by ity of tablet 00:00: mouth 2 (two) Medical times Branch daily. apixaban 0 Yes 2.5mg Take 1 Univer s 2.5 mg 2-11 tablet by ity of tablet 00:00: mouth 2 (two) Medical times Branch daily. apixaban 0 Yes 2.5mg Take 1 Univer s 2.5 mg 2-11 tablet by ity of tablet 00:00: mouth 2 [place] (two) Medical times Branch daily. apixaban Yes 2.5mg Take 1 Univer s 2.5 mg 2-11 tablet by ity of tablet 00:00: mouth (two) Medical times Branch daily. apixaban 2021-0 Yes 2.5mg Take 1 Univer s 2.5 mg 2-11 tablet by ity of tablet 00:00: mouth (two) Medical times Branch daily. apixaban 2021-0 Yes 2.5mg Take 1 Univer s 2.5 mg 2-11 tablet by ity of tablet 00:00: mouth (two) Medical times Branch daily. apixaban 2021-0 Yes 2.5mg Take 1 Univer s 2.5 mg 2-11 tablet by ity of tablet 00:00: mouth (two) Medical times Branch daily. apixaban 2021-0 Yes 2.5mg Take 1 Univer s 2.5 mg 2-11 tablet by ity of tablet 00:00: mouth (two) Medical times Branch daily. apixaban 2021-0 Yes 2.5mg Take 1 Univer s 2.5 mg 2-11 tablet by ity of tablet 00:00: mouth (two) Medical times Branch daily. apixaban 2021-0 Yes 2.5mg Take 1 Univer s 2.5 mg 2-11 tablet by ity of tablet 00:00: mouth (two) Medical times Branch daily. apixaban 2021-0 Yes 2.5mg Take 1 Univer s 2.5 mg 2-11 tablet by ity of tablet 00:00: mouth (two) Medical times Branch daily. apixaban 2021-0 Yes 2.5mg Take 1 Univer s 2.5 mg 2-11 tablet by ity of tablet 00:00: mouth (two) Medical times Branch daily. apixaban 2021-0 Yes 2.5mg Take 1 Univer s 2.5 mg 2-11 tablet by ity of tablet 00:00: mouth (two) Medical times Branch daily. apixaban 2021-0 Yes 2.5mg Take 1 Univer s 2.5 mg 2-11 tablet by ity of tablet 00:00: mouth (two) Medical times Branch daily. apixaban 2021-0 Yes 2.5mg Take 1 Univer s 2.5 mg 2-11 tablet by ity of tablet 00:00: mouth (two) Medical times Branch daily. apixaban 2021-0 Yes 2.5mg Take 1 Univer s 2.5 mg 2-11 tablet by ity of tablet 00:00: mouth (two) Medical times Branch daily. apixaban 2021-0 Yes 2.5mg Take 1 Univer s 2.5 mg 2-11 tablet by ity of tablet 00:00: mouth (two) Medical times Branch daily. apixaban 2021-0 Yes 2.5mg Take 1 Univer s 2.5 mg 2-11 tablet by ity of tablet 00:00: mouth (two) Medical times Branch daily. apixaban 2021-0 Yes 2.5mg Take 1 Univer s 2.5 mg 2-11 tablet by ity of tablet 00:00: mouth (two) Medical times Branch daily. apixaban 1-0 Yes 2.5mg Take 1 Univer s 2.5 mg 2-11 tablet by ity of tablet 00:00: mouth (two) Medical times Branch daily. apixaban 2021-0 Yes 2.5mg Take 1 Univer s 2.5 mg 2-11 tablet by ity of tablet 00:00: mouth (two) Medical times Branch daily. apixaban 1-0 Yes 2.5mg Take 1 Univer s 2.5 mg 2-11 tablet by ity of tablet 00:00: mouth (two) Medical times Branch daily. apixaban 2021-0 Yes 2.5mg Take 1 Univer s 2.5 mg 2-11 tablet by ity of tablet 00:00: mouth (two) Medical times Branch daily. apixaban 2021-0 Yes 2.5mg Take 1 Univer s 2.5 mg 2-11 tablet by ity of tablet 00:00: mouth (two) Medical times Branch daily. apixaban 2021-0 Yes 2.5mg Take 1 Univer s 2.5 mg 2-11 tablet by ity of tablet 00:00: mouth (two) Medical times Branch daily. apixaban 2021-0 Yes 2.5mg Take 1 Univer s 2.5 mg 2-11 tablet by ity of tablet 00:00: mouth 2 (two) Medical times Branch daily. apixaban Yes 2.5mg Take 1 Univer s 2.5 mg 2-11 tablet by ity of tablet 00:00: mouth 2 [place] (two) Medical times Branch daily. apixaban Yes 2.5mg Take 1 Univer s 2.5 mg 2-11 tablet by ity of tablet 00:00: mouth 2 [place] (two) Medical times Branch daily. aspirin 2018-10 Yes 81mg QD Take 81 mg Meth new (ECOTRIN) 1-[address] 81 MG 12:08: [facility]. [facility] enter[facility] 03 l coated tablet apixaban 2018-10 Yes 2.5mg Q.5D Take 2.5 Meth new (ELIQUIS) 1-[address] 2.5 mg 12:07: mouth 2 [facility]osp[facility] tablet 47 (two) l times a day. metoprolol 2018-10 Yes 25mg Q.5D Take 25 mg M ethodi tartrate 1-[address] (LOPRESSOR) 12:04: (two) Hospi ta 25 mg 38 times a l tablet day. levothyroxi 2018-10 Yes 50ug QD Take 50 Met hodi ne 1-[address] (SYNTHROID) 12:04: mouth Hospi ta 50 mcg 38 daily. l tablet albuterol Yes 2{puff} Inhale 2 U nivers 90 1-01 Puffs ity of mcg/actuati 00:00: every 4 Junior as on inhaler 00 (four) Medical hours as Branch needed for Wheezing, Shortness of Breath or Bronchospa sm. albuterol Yes 2{puff} Inhale 2 U nivers 90 1-01 Puffs ity of mcg/actuati 00:00: every 4 Junior as on inhaler 00 (four) Medical hours as Branch needed for Wheezing, Shortness of Breath or Bronchospa sm. albuterol Yes 2{puff} Inhale 2 U nivers 90 1-01 Puffs ity of mcg/actuati 00:00: every 4 Junior as on inhaler 00 (four) Medical hours as Branch needed for Wheezing, Shortness of Breath or Bronchospa sm. albuterol Yes 2{puff} Inhale 2 U nivers 90 1-01 Puffs ity of mcg/actuati 00:00: every 4 Junior as on inhaler 00 (four) Medical hours as Branch needed for Wheezing, Shortness of Breath or Bronchospa sm. albuterol Yes 2{puff} Inhale 2 U nivers 90 1-01 Puffs ity of mcg/actuati 00:00: every 4 Junior as on inhaler 00 (four) Medical hours as Branch needed for Wheezing, Shortness of Breath or Bronchospa sm. albuterol Yes 2{puff} Inhale 2 U nivers 90 1-01 Puffs ity of mcg/actuati 00:00: every 4 Junior as on inhaler 00 (four) Medical hours as Branch needed for Wheezing, Shortness of Breath or Bronchospa sm. albuterol Yes 2{puff} Inhale 2 U nivers 90 1-01 Puffs ity of mcg/actuati 00:00: every 4 Junior as on inhaler 00 (four) Medical hours as Branch needed for Wheezing, Shortness of Breath or Bronchospa sm. albuterol Yes 2{puff} Inhale 2 U nivers 90 1-01 Puffs ity of mcg/actuati 00:00: every 4 Junior as on inhaler 00 (four) Medical hours as Branch needed for Wheezing, Shortness of Breath or Bronchospa sm. albuterol Yes 2{puff} Inhale 2 U nivers 90 1-01 Puffs ity of mcg/actuati 00:00: every 4 Junior as on inhaler 00 (four) Medical hours as Branch needed for Wheezing, Shortness of Breath or Bronchospa sm. albuterol Yes 2{puff} Inhale 2 U nivers 90 1-01 Puffs ity of mcg/actuati 00:00: every 4 Junior as on inhaler 00 (four) Medical hours as Branch needed for Wheezing, Shortness of Breath or Bronchospa sm. albuterol Yes 2{puff} Inhale 2 U nivers 90 1-01 Puffs ity of mcg/actuati 00:00: every 4 Junior as on inhaler 00 (four) Medical hours as Branch needed for Wheezing, Shortness of Breath or Bronchospa sm. albuterol Yes 2{puff} Inhale 2 U nivers 90 1-01 Puffs ity of mcg/actuati 00:00: every 4 Junior as on inhaler 00 (four) Medical hours as Branch needed for Wheezing, Shortness of Breath or Bronchospa sm. albuterol Yes 2{puff} Inhale 2 U nivers 90 1-01 Puffs ity of mcg/actuati 00:00: every 4 Junior as on inhaler 00 (four) Medical hours as Branch needed for Wheezing, Shortness of Breath or Bronchospa sm. albuterol Yes 2{puff} Inhale 2 U nivers 90 1-01 Puffs ity of mcg/actuati 00:00: every 4 Junior as on inhaler 00 (four) Medical hours as Branch needed for Wheezing, Shortness of Breath or Bronchospa sm. albuterol Yes 2{puff} Inhale 2 U nivers 90 1-01 Puffs ity of mcg/actuati 00:00: every 4 Junior as on inhaler 00 (four) Medical hours as Branch needed for Wheezing, Shortness of Breath or Bronchospa sm. albuterol Yes 2{puff} Inhale 2 U nivers 90 1-01 Puffs ity of mcg/actuati 00:00: every 4 Junior as on inhaler 00 (four) Medical hours as Branch needed for Wheezing, Shortness of Breath or Bronchospa sm. albuterol Yes 2{puff} Inhale 2 U nivers 90 1-01 Puffs ity of mcg/actuati 00:00: every 4 Junior as on inhaler 00 (four) Medical hours as Branch needed for Wheezing, Shortness of Breath or Bronchospa sm. albuterol Yes 2{puff} Inhale 2 U nivers 90 1-01 Puffs ity of mcg/actuati 00:00: every 4 Junior as on inhaler 00 (four) Medical hours as Branch needed for Wheezing, Shortness of Breath or Bronchospa sm. albuterol Yes 2{puff} Inhale 2 U nivers 90 1-01 Puffs ity of mcg/actuati 00:00: every 4 Junior as on inhaler 00 (four) Medical hours as Branch needed for Wheezing, Shortness of Breath or Bronchospa sm. albuterol 2021- No 2{puff} Inhale 2 [place] [id number] 10-08 12-30 Puffs ity of mcg/actuati 00:00: 00:00 every 4 [place] on inhaler 00 :00 (four) Medical hours as Branch needed for Wheezing, Shortness of Breath or Bronchospa sm. albuterol 2021- No 2{puff} Inhale 2 [facility] 90 10-08 12-30 Puffs ity of mcg/actuati 00:00: 00:00 every 4 [place] on inhaler 00 :00 (four) Medical hours as Branch needed for Wheezing, Shortness of Breath or Bronchospa sm. Immunizations Ordered Filled Immunization Date Status Comments [facility] Immunization Name Name Influenza Virus 2020-05-17 Completed Universit y of Vaccine [place] .5 mL 00:00:00 [place] [facility] 6+ MO Branch Influenza Virus 2020-05-17 Completed Universit y of Vaccine [place] .5 mL 00:00:00 [place] [facility] 6+ MO Branch Influenza Virus 2020-05-17 Completed Universit y of Vaccine [place] .5 mL 00:00:00 [place] [facility] 6+ MO Branch Influenza Virus 2020-05-17 Completed Universit y of Vaccine [place] .5 mL 00:00:00 [place] [facility] 6+ MO Branch Influenza Virus 2020-05-17 Completed Universit y of Vaccine [place] .5 mL 00:00:00 [place] [facility] 6+ MO Branch Influenza Virus 2020-05-17 Completed Universit y of Vaccine [place] .5 mL 00:00:00 [place] [facility] 6+ MO Branch Influenza Virus 2020-05-17 Completed Universit y of Vaccine [place] .5 mL 00:00:00 [place] [facility] 6+ MO Branch Influenza Virus 2020-05-17 Completed Universit y of Vaccine [place] .5 mL 00:00:00 [place] [facility] 6+ MO Branch Influenza Virus 2020-05-17 Completed Universit y of Vaccine [place] .5 mL 00:00:00 [place] [facility] 6+ MO Branch Influenza Virus 2020-05-17 Completed Universit y of Vaccine [place] .5 mL 00:00:00 [place] [facility] 6+ MO Branch Influenza Virus 2020-05-17 Completed Universit y of Vaccine [place] .5 mL 00:00:00 [place] [facility] 6+ MO Branch Influenza Virus 2020-05-17 Completed Universit y of Vaccine Quad .5 mL 00:00:00 [place] [facility] 6+ MO Branch Influenza Virus 2020-05-17 Completed Universit y of Vaccine [place] .5 mL 00:00:00 [place] [facility] 6+ MO Branch Influenza Virus 2020-05-17 Completed Universit y of Vaccine [place] .5 mL 00:00:00 [place] [facility] 6+ MO Branch Influenza Virus 2020-05-17 Completed Universit y of Vaccine [place] .5 mL 00:00:00 [place] [facility] 6+ MO Branch Influenza Virus 2020-05-17 Completed Universit y of Vaccine [place] .5 mL 00:00:00 [place] [facility] 6+ MO Branch Influenza Virus 2020-05-17 Completed Universit y of Vaccine [place] .5 mL 00:00:00 [place] [facility] 6+ MO Branch Influenza Virus 2020-05-17 Completed Universit y of Vaccine [place] .5 mL 00:00:00 [place] [facility] 6+ MO Branch Influenza Virus 2020-05-17 Completed Universit y of Vaccine [place] .5 mL 00:00:00 [place] [facility] 6+ MO Branch Influenza Virus 2020-05-17 Completed Universit y of Vaccine [place] .5 mL 00:00:00 [place] [facility] 6+ MO Branch Influenza Virus 2020-05-17 Completed Universit y of Vaccine [place] .5 mL 00:00:00 [place] [facility] 6+ MO Branch Influenza Virus 2020-05-17 Completed Universit y of Vaccine Quad .5 mL 00:00:00 [place] [facility] 6+ MO Branch Influenza Virus 2020-05-17 Completed Universit y of Vaccine Quad .5 mL 00:00:00 [place] [facility] 6+ MO Branch Influenza Virus 2020-05-17 Completed Universit y of Vaccine [place] .5 mL 00:00:00 [place] [facility] 6+ MO Branch Influenza Virus 2020-05-17 Completed Universit y of Vaccine Quad .5 mL 00:00:00 [place] [facility] 6+ MO Branch Influenza Virus 2020-05-17 Completed Universit y of Vaccine Quad .5 mL 00:00:00 [place] [facility] 6+ MO Branch Influenza Virus 2020-05-17 Completed Universit y of Vaccine Quad .5 mL 00:00:00 [place] [facility] 6+ MO Branch Influenza Virus 2020-05-17 Completed Universit y of Vaccine Quad .5 mL 00:00:00 [place] [facility] 6+ MO Branch TDAP 2000-09-26 Completed University of 00:00:00 [place] [facility] TDAP 2000-09-26 Completed University of 00:00:00 [place] [facility] TDAP 2000-09-26 Completed University of 00:00:00 [place] [facility] TDAP 2000-09-26 Completed University of 00:00:00 [facility] TDAP 2000-09-26 Completed University of 00:00:00 [place] [facility] TDAP 2000-09-26 Completed University of 00:00:00 [place] [facility] TDAP 2000-09-26 Completed University of 00:00:00 [place] [facility] TDAP 2000-09-26 Completed University of 00:00:00 [place] [facility] TDAP 2000-09-26 Completed University of 00:00:00 [place] [facility] TDAP 2000-09-26 Completed University of 00:00:00 [facility] TDAP 2000-09-26 Completed University of 00:00:00 [place] [facility] TDAP 2000-09-26 Completed University of 00:00:00 [place] [facility] TDAP 2000-09-26 Completed University of 00:00:00 [facility] TDAP 2000-09-26 Completed University of 00:00:00 [facility] TDAP 2000-09-26 Completed University of 00:00:00 [place] [facility] TDAP 2000-09-26 Completed University of 00:00:00 [place] [facility] TDAP 2000-09-26 Completed University of 00:00:00 [place] [facility] TDAP 2000-09-26 Completed University of 00:00:00 [place] [facility] TDAP 2000-09-26 Completed University of 00:00:00 [place] [facility] TDAP 2000-09-26 Completed University of 00:00:00 [place] [facility] TDAP 2000-09-26 Completed University of 00:00:00 [place] [facility] TDAP 2000-09-26 Completed University of 00:00:00 [place] [facility] TDAP 2000-09-26 Completed University of 00:00:00 [place] [facility] TDAP 2000-09-26 Completed University of 00:00:00 [place] [facility] TDAP 2000-09-26 Completed University of 00:00:00 [facility] TDAP 2000-09-26 Completed University of 00:00:00 [facility] TDAP 2000-09-26 Completed University of 00:00:00 [facility] TDAP 2000-09-26 Completed University of 00:00:00 [facility] Vital Signs Vital Name Observation Time Observation Value Comments Source Systolic blood 2022-10-06 16:26:00 129 mm[Hg] Univer sity of pressure [facility] Diastolic blood 2022-10-06 16:26:00 82 mm[Hg] Unive rsity of pressure [facility] Heart rate 2022-10-06 16:26:00 115 /min Universi ty of [place] [facility] Body temperature 2022-10-06 16:26:00 37.17 Mindy Univ ersity of [place] [facility] Body height 2022-10-06 16:26:00 162.6 cm Universi ty of [place] [facility] Body weight 2022-10-06 16:26:00 102.513 kg Universi ty of [place] [facility] BMI 2022-10-06 16:26:00 38.79 kg/m2 Universi ty of [place] [facility] Oxygen saturation in 2022-10-06 16:26:00 97 /min University of Arterial blood by [employer] [facility]id Pulse oximetry Branch Systolic blood 2022-08-24 20:49:00 117 mm[Hg] Univer sity of pressure [facility] Diastolic blood 2022-08-24 20:49:00 81 mm[Hg] Unive rsity of pressure [facility] Heart rate 2022-08-24 20:49:00 92 /min Universi ty of [place] [facility] Body temperature 2022-08-24 20:49:00 36.78 Mindy Univ ersity of [place] [facility] Body height 2022-08-24 20:49:00 163.8 cm Universi ty of [place] [facility] Body weight 2022-08-24 20:49:00 103.828 kg Universi ty of [place] [facility] BMI 2022-08-24 20:49:00 38.68 kg/m2 Universi ty of [place] [facility] Oxygen saturation in 2022-08-24 20:49:00 97 /min University of Arterial blood by [employer] david Pulse oximetry Branch Systolic blood 2022-08-16 19:50:00 135 mm[Hg] Univer sity of pressure [facility] Diastolic blood 2022-08-16 19:50:00 86 mm[Hg] Unive rsity of pressure [facility] Heart rate 2022-08-16 19:50:00 90 /min Universi ty [facility] [place] [facility] Body temperature 2022-08-16 19:50:00 36.22 Mindy [facility] Body height 2022-08-16 19:50:[address] [facility] Body weight 2022-08-16 19:50:[address] [facility] BMI 2022-08-16 19:50:00 40.08 kg/m2 [facility] Oxygen saturation in 2022-08-16 19:50:00 96 /min [facility] Arterial blood by [facility] Pulse oximetry Branch HEIGHT 2021-03-16 10:23:00 158 cm WEIGHT 2021-03-16 10:23:00 101.5 kg Procedures Procedure Date / Time Performing Clinician Source Performed CT THORAX W CONTRAST 2023-01-16 15:45:00 Requisition, Paper [facility] HB CREATININE 2023-01-16 15:34:00 Radiology [place] SERUM/BLOOD FOR IMAGING [facility] CONSENT/REFUSAL FOR 2023-01-16 14:44:53 Doctor Unassigned, No Un [facility] DIAGNOSIS AND TREATMENT Name [facility] ASSIGNMENT OF BENEFITS 2023-01-16 14:44:23 Doctor Unassigned, No [facility] Name [facility] POCT MOLECULAR STREP 2022-10-06 17:04:00 Lisette Mckay [facility] POCT MOLECULAR FLU 2022-10-06 16:42:00 Lisette Mckay [facility] CT ABDOMEN PELVIS W 2022-08-28 22:33:11 Micheline Arredondo [facility] CONTRAST [facility] LIPASE 2022-08-24 22:30:00 Micheline Arredondo [facility] COMP. METABOLIC PANEL 2022-08-24 22:30:00 Micheline Arredondo [facility] ([id number]) [facility] CBC WITH DIFF 2022-08-24 22:30:00 Micheline Arredondo [facility] URINALYSIS 2022-08-24 22:30:00 Micheline Arredondo [facility] COVID-19 (MOLECULAR 2022-08-24 21:30:00 Micheline Arredondo [facility] NUCLEIC ACID AMPLIFICATION) POCT MOLECULAR FLU 2022-08-24 21:29:[address] [facility] EKG-12 LEAD 2022-08-16 19:54:58 Patito Calle [place] o f [facility] XR FOOT 3+ VW LEFT 2022-08-14 16:44:48 Bennie Zarate [facility] ASSIGNMENT OF BENEFITS 2022-08-14 15:45:13 Doctor Unassigned, No [facility] PHYSICIAN CERTIFICATION 2022-07-21 05:01:00 Doctor Unassigned, N o [facility] STATEMENT [facility] Plan of Care Planned Activity Planned Date Details Comments Source Future Scheduled 2023-03-22 Screening for [facility] Test 15:59:16 malignant neoplasm of colon (procedure) [code = 142388290] Future Scheduled 2023-03-22 Screening for [facility] Test 15:59:16 malignant neoplasm of colon (procedure) [code = 665919589] Future Scheduled 2023-03-22 Screening for [facility] Test 15:59:16 malignant neoplasm of colon (procedure) [code = 468364074] Future Scheduled 2023-03-22 [facility] 15:59:16 (#1) [code = COVID-19 VACCINE (#1)] Future Scheduled 2023-03-22 Screening for [facility] Test 15:59:16 malignant neoplasm of cervix (procedure) [code = 184333854] Future Scheduled 2023-03-22 BREAST CANCER [facility] Test 15:59:16 SCREENING [code = BREAST CANCER SCREENING] Future Scheduled 2023-03-22 [facility] Test 15:59:16 malignant neoplasm of colon (procedure) [code = 193636032] Future Scheduled 2023-03-22 [facility] Test 15:59:16 malignant neoplasm of colon (procedure) [code = 803136267] Future Scheduled 2023-03-22 SHINGLES VACCINES [facility] 15:59:16 (1 of 2) [code = SHINGLES VACCINES (1 of 2)] Future Scheduled 2023-03-22 INFLUENZA VACCINE [facility] Test 15:59:16 [code = INFLUENZA VACCINE] Encounters Start End Encounter Admission Attending Care Care Encounter Source Date/Time Date/Time Type Type Clinicians Facility Department ID 2022-01-03 Outpatient SYSTEM, [facility] MEETA [id number] 08:05:49 PROVIDER Ean o n 2021-08-08 Outpatient R TESSA [facility] ANS [id number] Univers 18:19:42 [facility] 2021-08-08 Outpatient R TESSA [facility] ANS [id number] Univers 18:19:40 [facility] 2021-05-31 Outpatient SYSTEM, [facility] ME[facility] [id number] 17:54:43 PROVIDER Ean o n 2021-03-28 Outpatient SYSTEM, [facility] [id number] 08:58:41 PROVIDER Ean o n 2021-02-25 Outpatient SYSTEM, [facility] [id number] 09:56:57 PROVIDER Ean o n 2020-12-07 Inpatient DEVONTE Avitia, HCAPM HCAPM [id number] [facility] 09:41:46 Elaine 15 [facility] 2023-04-24 2023-04-24 Outpatient R RODOLFO BOOGIE [facility] [id number] Univers 13:20:00 14:30:13 RODOLFO BOOGIE [facility] 2023-04-24 2023-04-24 Telephone [facility] [id number] Univers 00:00:00 00:00:00 Micheline A HEALTH [id number] i ty of [place] [id number] Junior as HOME?[place] [id number] [address] OFFICE [facility] 2023-04-24 2023-04-24 Letter [facility] [id number] Univers 00:00:00 00:00:00 (Out) [facility] [id number] ity of [place] 4.2.7.2.686 Junior as HOME?[place] [id number] [address] 2023-01-16 2023-01-16 Outpatient R RADIOLOGY [facility] [id number] Univers 09:48:51 23:59:00 ity [facility] 2023-01-16 2023-01-16 Hospital Radiology [facility] [id number] Univers 09:48:51 23:59:00 Encounter LLOY[place] [id number] ity of [place] 4.2.7.2.686 [place] [facility] [id number] [address] 2022-12-09 2022-12-09 Refamy [facility] [id number] Univers 00:00:00 00:00:00 Jass HEALTH [id number] it y of [place] 4.2.7.2.686 Junior as HOME?[place] [id number] [address] OFFICE [facility] 2022-11-12 2022-11-12 Refamy [facility] [id number] Univers 00:00:00 00:00:00 Jass HEALTH [id number] it y of [place] 4.2.7.2.686 Junior as HOME?[place] [id number] [address] MEDICAL OFFICE [facility] 2022-10-17 2022-10-17 Refamy [facility] [id number] Univers 00:00:00 00:00:00 Jass HEALTH [id number] it y of [place] 4.2.7.2.686 Junior as HOME?[place] [id number] [address] OFFICE [facility] 2022-10-06 2022-10-06 Outpatient R WOODY MISUJATHA [facility] [id number] Univers 10:30:00 11:25:29 LISETTE ity of [facility] 2022-10-06 2022-10-06 Office Woody [facility] [id number] Univers 10:30:00 11:00:00 Visit Lisette [facility] [id number] it y of [place] 4.2.7.2.686 Junior as HOME?[place] [id number] [address] OFFICE [facility] 2022-10-06 2022-10-06 Letter Woody [facility] [id number] Univers 00:00:00 00:00:00 (Out) Lisette HEALTH 350.1.13.10 it y of [place] 4.2.7.2.686 Junior as HOME?[place] [id number] [address] OFFICE [facility] 2022-09-16 2022-09-16 [facility] 1.2.840.114 [id number] Univers 00:00:00 00:00:00 Micheline A HEALTH 350.1.13.10 i ty of [place] 4.2.7.2.686 Junior as HOME?BLEA [phone] [address] 2022-09-09 2022-09-09 [facility]phone [facility] 1.2.918.566 [id number] Univers 00:00:00 00:00:00 Micheline A HEALTH 350.1.13.10 i ty of [place] 4.2.7.2.686 Junior as HOME?BLEA [phone] [address] OFFICE [facility] 2022-09-04 2022-09-04 Outpatient R [facility] [id number] Univers 15:34:33 23:59:00 MICHELINE ity of [facility] 2022-09-04 2022-09-04 [facility] 1.2.840.114 [id number] Univers 15:34:33 23:59:00 Encounter Micheline Tyra [place] 350.1.13.10 ity of [place] 4.2.7.2.686 [place] [facility] [phone] [address] 2022-08-29 2022-08-29 Telephone [facility] 1.2.714.073 [id number] Univers 00:00:00 00:00:00 Micheline A HEALTH 350.1.13.10 i ty of [place] 4.2.7.2.686 Junior as HOME?BLEA [phone] [address] OFFICE [facility] 2022-08-29 2022-08-29 Patient [facility] 1.2.840.114 [id number] Univers 00:00:00 00:00:00 Secure Msg Micheline A HEALTH 350.1.13.10 ity of [place] 4.2.7.2.686 Junior as HOME?BLEA [phone] [facility] 044 [facility] OFFICE [facility] 2022-08-29 2022-08-29 Telephone [facility] 1.2.784.369 [id number] Univers 00:00:00 00:00:00 Micheline A HEALTH 350.1.13.10 i ty of [place] 4.2.7.2.686 Junior as HOME?BLEA [phone] [address] OFFICE [facility] 2022-08-28 2022-08-28 Outpatient [facility] [id number] Univers 15:35:41 23:59:00 MICHELINE ity [facility] 2022-08-28 2022-08-28 Hospital [facility] 1.2.840.114 [id number] Univers 15:35:41 23:59:00 Encounter Micheline [place] 350.1.13.10 ity [facility] 4.2.7.2.686 [place] [phone] [address] 2022-08-25 2022-08-25 Telephone [facility] 1.2.577.921 [id number] Univers 00:00:00 00:00:00 Micheline Mary HEALTH 350.1.13.10 i ty of [place] 4.2.7.2.686 Junior as HOME?BLEA [phone] [address] OFFICE [facility] 2022-08-24 2022-08-24 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, 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 - Db [facility] 1.2.840.1 14 [id number] Univers 16:15:00 16:30:00 Visit Nicolle Micheline A HEALTH 350.1.13.10 ity of [place] 4.2.7.2.686 Junior as HOME?BLEA [phone] [facility] 353 [facility] OFFICE [facility] 2022-08-24 2022-08-24 Outpatient [facility] [id number] Univers 15:00:00 16:15:04 MICHELINE ity [facility] 2022-08-24 2022-08-24 Office [facility] 1.2.840.114 [id number] Univers 15:00:00 16:15:04 Visit Micheline DENNEY 350.1.13.10 i ty of [place] 4.2.7.2.686 Junior as HOME?BLEA [phone] Pr dical KNEY 044 [facility] OFFICE [facility] 2022-08-16 2022-08-16 Outpatient R [facility] [id number] Univers 13:40:00 16:35:17 PATITO ity [facility] 2022-08-16 2022-08-16 Office [facility] 1.2.840.114 [id number] Univers 13:40:00 16:35:17 Visit Patito DESAI 350.1.13.10 i ty of [facility] 4.2.7.2.686 [place] [phone] Pr dical NAL 059 [facility] 2022-08-14 2022-08-14 Outpatient R TESSA [facility] [id number] Univers 09:46:08 23:59:00 BENNIE ity [facility] 2022-08-14 2022-08-14 [facility] 1.2.840.114 [id number] Univers 09:45:00 23:59:00 Encounter Bennie Serrano [place] 350.1.13.10 ity of [facility] 4.2.7.2.686 [place] [phone] [facility] [address] 2022-08-14 2022-08-14 Fuel Cell Repairer Shanda, Adc Lab Main [facility] 1.2.8 40.114 [id number] Univers 10:15:00 10:30:00 Visit Carlos Garcia 350.1.13.10 ity of [facility] 4.2.7.2.686 [place] [phone] Pr dical NAL 353 [facility] 2022-08-14 2022-08-14 Orders Doctor ALEJANDRO 1.2.840.114 [id number] Univers 00:00:00 00:00:00 Only Unassigned, ALEJANDRO 350.1.13.10 ity of [place] [facility] 4.2.7.2.686 Junior as [phone] [address] 2022-07-21 2022-07-21 Orders Doctor JAVON 1.2.840.114 [id number] Univers 00:00:00 00:00:00 Only Unassigned, ALEJANDRO 350.1.13.10 ity of [place] [facility] 4.2.7.2.686 Junior as [phone] [address] 2022-05-26 2022-05-26 Telephone Yaya [facility] 1.2.430.302 [id number] Univers 00:00:00 00:00:00 Nori HEALTH 350.1.13.10 it y of [place] 4.2.7.2.686 Junior as HOME?BLEA [phone] [address] MEDICAL OFFICE [facility] 2022-05-21 2022-05-21 Urgent Nori Gonzalez [facility] 1.2.840.114 [id number] Univers 14:40:00 15:21:52 Care Javon Price [facility] 350.1.13.10 ity of [place] 4.2.7.2.686 Junior as HOME?BLEA [phone] [address] OFFICE [facility] 2022-05-21 2022-05-21 Outpatient R YAYA [facility] [id number] Univers 14:40:00 15:21:52 NORI ity of [facility] 2022-04-25 2022-04-25 Orders Doctor JAVON 1.2.840.114 [id number] Univers 00:00:00 00:00:00 Only Unassigned, ALEJANDRO 350.1.13.10 ity of [place] [facility] 4.2.7.2.686 Junior as [phone] [address] 2022-04-14 2022-04-14 Office [facility] 1.2.840.114 [id number] Univers 16:30:00 17:00:00 Visit Micheline Tyra [facility] 350.1.13.10 i ty [facility] 4.2.7.2.686 Junior as HOME?BLEA [phone] [facility] [address] MEDICAL OFFICE [facility] 2022-04-14 2022-04-14 Outpatient R NICOLLE, [facility] [id number] Univers 16:30:00 16:30:00 MICHELINE lopez [facility] 2022-04-14 2022-04-14 Orders Doctor JAVON 1.2.840.114 [id number] Univers 00:00:00 00:00:00 Only Unassigned, ALEJANDRO 350.1.13.10 ity of [place] [facility] 4.2.7.2.686 Junior as [phone] [address] 2022-04-06 2022-04-06 Outpatient R [facility] [id number] Univers 14:00:00 14:58:58 [facility] 2022-04-06 2022-04-06 [facility] 1.2.840.114 [id number] Univers 14:00:00 14:58:58 Care [facility] 350.1.13.10 it y of [place] 4.2.7.2.686 Junior as HOME?BLEA [phone] [address] MEDICAL OFFICE [facility] 2022-01-04 2022-01-04 Outpatient EL ALESSANDRO MDA MDA [id number] 08:33:44 10:13:53 Guanakito URBAN rso DEIRDRE n 2022-01-03 2022-01-03 Outpatient EL ALESSANDRO MDA MDA [id number] 10:13:38 23:59:00 Guanakito URBAN rso DEIRDRE n 2022-01-03 2022-01-03 Outpatient EL ALESSANDRO MDA MDA [id number] 09:58:41 10:12:00 Guanakito URBAN rso DEIRDRE n 2021-12-19 2021-12-19 Orders Doctor JAVON 1.2.840.114 [id number] Univers 00:00:00 00:00:00 Only Unassigned, ALEJANDRO 350.1.13.10 ity of [place] [facility] 4.2.7.2.686 Junior as [phone] [address] 2021-10-17 2021-10-17 Emergency X AUBREE, [facility] ERT [id number] Univers 14:17:00 17:06:00 ALEJANDRINA ity of [facility] 2021-10-17 2021-10-17 Emergency Kaale, [facility] 1.2.012.232 [id number] Univers 14:17:00 17:06:00 Alejandrina DESAI 350.1.13.10 ity of [place] 4.2.7.2.[place] [phone] [facility] [address] 2021-07-04 2021-07-04 [facility] 1.2.840.114 [id number] Univers 06:31:00 08:18:00 Encounter Bennie Desai 350.1.13.10 ity of [employer] 4.2.7.2.686 [place] [phone] [facility] [address] 2021-07-04 2021-07-04 Surgery [facility] 1.2.926.833 [id number] Univers 07:30:00 07:50:00 Bennie Desai 350.1.13.10 ity of [employer] 4.2.7.2.[place] [phone] [facility] [address] 2021-07-04 2021-07-04 Orders Doctor ALEJANDRO 1.2.840.114 [id number] Univers 00:00:00 00:00:00 Only Unassigned, ALEJANDRO 350.1.13.10 ity of [place] [facility] 4.2.7.2.686 Junior as [phone] [facility] [address] 2021-07-01 2021-07-01 Laboratory Only, Adc Test [facility] 1.2.840. 114 [id number] Univers 12:08:02 12:23:02 Only Bennie Zarate 350.1.13.1 0 ity of [employer] 4.2.7.2.686 [place] [phone] [facility] [address] 2021-07-01 2021-07-01 Outpatient [facility] [id number] Univers 12:15:00 12:15:00 BENNIE ity of [facility] 2021-07-01 2021-07-01 Orders Doctor ALEJANDRO 1.2.840.114 [id number] Univers 00:00:00 00:00:00 Only Unassigned, ALEJANDRO 350.1.13.10 ity of [place] [facility] 4.2.7.2.686 Junior as [phone] [facility] [address] 2021-06-20 2021-06-20 Surgery [facility] 1.2.390.478 [id number] Univers 09:37:00 09:57:00 Bennie Serrano [place] 350.1.13.10 ity of [employer] 4.2.7.2.[place] [phone] [facility] [address] 2021-06-20 2021-06-20 [facility] 1.2.840.114 [id number] Univers 08:00:00 09:22:00 Encounter Bennie Serrano Lloyd 350.1.13.10 ity of [place] [employer] 4.2.7.2.[place] [phone] [facility] [address] 2021-06-20 2021-06-20 Orders Doctor ALEJANDRO 1.2.840.114 [id number] Univers 00:00:00 00:00:00 Only Unassigned, ALEJANDRO 350.1.13.10 ity of [place] [facility] 4.2.7.2.686 Junior as [phone] [facility] [address] 2021-06-17 2021-06-17 Laboratory Only, Adc Test [facility] 1.2.840. 114 [id number] Univers 12:19:34 12:34:34 Only Bennie Zarate 350.1.13.1 0 ity of [place] [employer] 4.2.7.2.686 [place] [phone] [facility] [address] 2021-06-17 2021-06-17 Outpatient R TESSA [facility] [id number] Univers 12:15:00 12:15:00 BENNIE ity of [facility] 2021-06-17 2021-06-17 Orders Doctor ALEJANDRO 1.2.840.114 [id number] Univers 00:00:00 00:00:00 Only Unassigned, ALEJANDRO 350.1.13.10 ity of [place] [facility] 4.2.7.2.686 Junior as [phone] [facility] [address] 2021-06-06 2021-06-06 Outpatient R [facility] [place] [id number] Univers 06:46:00 08:35:00 BENNIE ity [facility] 2021-06-06 2021-06-06 Hospital [facility] 1.2.840.114 [id number] Univers 06:46:00 08:35:00 Encounter Bennie Desai 350.1.13.10 ity of [place] 4.2.7.2.[place] [phone] [facility] [address] 2021-06-06 2021-06-06 Surgery [facility] 1.2.400.412 [id number] Univers 07:30:00 07:50:00 Bennie Desai 350.1.13.10 ity of [place] 4.2.7.2.[place] [phone] [facility] [address] 2021-06-06 2021-06-06 Orders Doctor JAVON 1.2.840.114 [id number] Univers 00:00:00 00:00:00 Only Unassigned, ALEJANDRO 350.1.13.10 ity of [place] [facility] 4.2.7.2.686 Junior as [phone] [facility] [address] 2021-06-03 2021-06-03 Outpatient [facility] [id number] Univers 12:15:00 12:15:00 BENNIE ity [facility] 2021-06-03 2021-06-03 Laboratory Only, Adc Test [facility] 1.2.840. 114 [id number] Univers 11:16:32 11:31:32 Only Bennie Zarate 350.1.13.1 0 ity of [place] 4.2.7.2.686 [place] [phone] [facility] [address] 2021-06-01 2021-06-01 Fuel Cell Repairer Shanda, Adc Lab Main [facility] 1.2.8 40.114 [id number] Univers 15:04:57 15:19:57 Visit Carlos Garcia [place] 350.1.13.10 ity of [employer] [employer] [place].2.7.2.[place] Profess[place] [phone] Pr dical [address] 2021-06-01 2021-06-01 Outpatient Melody GARCIA [facility] [id number] Univers 15:00:00 15:00:00 CARLOS italeksandar [facility] 2021-05-31 2021-05-31 Orders Doctor JAVON 1.2.840.114 [id number] Univers 00:00:00 00:00:00 Only Unassigned, ALEJANDRO 350.1.13.10 ity of [facility] 4.2.7.2.686 Junior as [id number] [address] 2021-05-04 2021-05-04 Outpatient EL ALESSANDRO MDA MDA [id number] 08:39:52 09:10:24 Guanakito URBAN 2021-04-16 2021-04-16 Outpatient EL SHRUTHI, MDA MDA [id number] 14:33:00 23:59:00 BRET martinez 2021-04-16 2021-04-16 Outpatient EL RAH, MDA Surgical [id number] 05:50:00 13:10:00 CORINA martinez 2021-04-15 2021-04-15 Outpatient EL GARCIA, MDA MDA [id number] 08:54:01 08:54:01 GABRIELLE martinez 2021-04-13 2021-04-13 Outpatient EL ALESSANDRO MDA MDA [id number] 12:16:39 13:04:50 Guanakito URBAN 2021-04-13 2021-04-13 Outpatient EL GARCIA, MDA MDA [id number] 11:56:57 12:03:36 GABRIELLE martinez 2021-03-30 2021-03-30 Outpatient EL BARRENECHEA MDA MDA [id number] 07:24:14 23:59:00 , MELVINA martinez 2021-03-29 2021-03-29 Outpatient EL ALESSANDRO MDA MDA [id number] MD 10:45:32 10:45:32 Guanakito URBAN rso DEIRDRE n 2021-03-29 2021-03-29 Outpatient EL ALESSANDRO MDA MDA [id number] MD 10:45:31 10:45:31 Guanakito URBAN rso DEIRDRE n 2021-03-29 2021-03-29 Outpatient EL ALESSANDRO MDA MDA [id number] MD 10:45:30 10:45:30 URBAN, Guanakito rso DEIRDRE n 2021-03-29 2021-03-29 Outpatient EL ALESSANDRO MDA MDA [id number] MD 10:45:28 10:45:28 URBAN, Guanakito rso DEIRDRE n 2021-03-29 2021-03-29 Outpatient EL ALESSANDRO MDA MDA [id number] MD 10:45:27 10:45:27 URBAN, Guanakito rso DEIRDRE n 2021-03-29 2021-03-29 Outpatient EL ALESSANDRO MDA MDA [id number] MD 10:45:26 10:45:26 RAJNI Guanakito rso DEIRDRE n 2021-03-16 2021-03-16 Outpatient EL SHRUTHI, MDA MDA [id number] MD 12:07:00 23:59:00 BRET martinez 2021-03-16 2021-03-16 Outpatient EL ALESSANDRO MDA MDA [id number] MD 10:06:41 11:28:54 RAJNI Guanakito rso DEIRDRE n 2021-03-16 2021-03-16 Outpatient EL BARRENECHEA MDA MDA [id number] MD 10:10:48 10:10:48 MELVINA 2021-03-16 2021-03-16 Outpatient EL MDA MDA [id number] MD 10:03:22 10:03:31 Ean martinez 2021-03-15 2021-03-15 Outpatient EL ALESSANDRO MDA MDA [id number] MD 09:41:28 09:41:28 Guanakito URBAN rso DEIRDRE n 2021-03-15 2021-03-15 Outpatient EL ALESSANDRO MDA MDA [id number] MD 09:41:25 09:41:25 Guanakito URBAN rso DEIRDRE n 2021-03-152021-03-15 Outpatient EL ALESSANDRO MDA MDA [id number] 09:41:22 09:41:22 Guanakito URBAN 2021-03-14 2021-03-14 Outpatient EL ALESSANDRO MDA MDA [id number] 13:52:29 14:16:51 Guanakito URBAN 2021-01-06 2021-01-06 Outpatient CHERISE [facility] [id number] [facility] 08:42:00 23:59:00 LEAINE 2020-12-18 2020-12-18 Patient Cesar [facility] 1.2.840.[id number] [place] [address] 00:00:00 00:00:00 Outreach Paul BECK 350.1.13.10 miguel [facility] 4.2.7.2.686 [place] [phone] Pr dic[address] 2020-12-02 2020-12-02 Outpatient DEVONTE Avitia [facility] [id number] [facility] 01:50:59 01:50:[address] [facility] 2020-11-18 2020-11-18 Office [facility] 1.2.840.114 [id number] [facility] 10:23:52 11:43:45 Visit Lola Desai 350.1.13.10 john [employer] [place].2.7.2.[place] [phone] Pr dic[address] 2020-11-18 2020-11-18 Office Toney [facility] 1.2.840.114 [id number] 10:23:52 11:43:45 Visit Lola Desai 350.1.13.10 [employer] 4.2.7.2.686 Professio [phone] [address] 2020-11-18 2020-11-18 Outpatient R TONEY MISUJATHA [facility] [id number] Univers 10:30:00 10:30:00 SENDIL italeksandar of [facility] 2020-11-18 2020-11-18 Patient Doctor [facility] 1.2.840.114 [id number] Univers 00:00:00 00:00:00 Secure Msg Unassigned, [place] 350.1.13.10 ity of [place] [employer] [place].2.7.2.[place] [phone] Pr dical [address] 2020-11-18 2020-11-18 Patient Doctor [facility] 1.2.840.114 [id number] 00:00:00 00:00:00 Secure Msg Unassigned, [place] 350.1.13.10 [place] [employer] 4.2.7.2.686 Professio [phone] [address] 2020-11-16 2020-11-16 [facility] 1.2.840.114 [id number] Univers 07:43:40 23:59:00 Encounter Sendnewton Desai 350.1.13.10 ity of [employer] 4.2.7.2.686 [facility] s [place] [phone] [address] 2020-11-16 2020-11-16 [facility] 1.2.840.114 [id number] Univers 07:43:16 23:59:00 Encounter Sendnewton Desai 350.1.13.10 ity of [employer] 4.2.7.2.686 [facility] [phone] [address] 2020-11-16 2020-11-16 Outpatient R [facility] [id number] Univers 16:00:00 16:00:00 SENDIL ity of [facility] 2020-11-16 2020-11-16 [facility] 1.2.840.114 [id number] Univers 07:40:38 07:42:00 Encounter Sendil Wesly Desai 350.1.13.10 ity of [employer] 4.2.7.2.686 [facility] [phone] [address] 2020-11-16 2020-11-16 [facility] 1.2.840.114 [id number] Univers 07:39:33 07:39:33 Encounter Sendil Wesly Desai 350.1.13.10 ity of [employer] [place].2.[place].2.[place] [phone] [facility] [address] 2020-11-04 2020-11-04 Orders Doctor JAVON 1.2.840.114 [id number] Univers 00:00:00 00:00:00 Only Unassigned, ALEJANDRO 350.1.13.10 ity of [place] [facility] 4.2.7.2.686 Junior as [phone] [address] 2020-11-01 2020-11-01 Outpatient R TONEY [facility] [id number] [facility] 15:30:00 15:30:00 SENDIL ity of [facility] 2020-10-30 2020-10-30 Telephone [facility] 1.2.094.690 [id number] Univers 00:00:00 00:00:00 Sendil Wesly Desai 350.1.13.10 ity of [employer] [place]2.7.2.[place] [phone] [address] 2020-10-10 2020-10-10 Orders Doctor JAVON 1.2.840.114 [id number] Univers 00:00:00 00:00:00 Only Unassigned, ALEJANDRO 350.1.13.10 ity of [place] [facility] 4.2.7.2.686 Junior as [phone] [address] 2020-09-29 2020-09-29 Outpatient DEVONTE Jorge, [facility] [id number] [facility] 12:00:00 12:00:[address] 2020-09-24 2020-09-24 Telephone [facility] 1.2.703.025 [id number] Univers 00:00:00 00:00:00 Sendil Wesly Desai 350.1.13.10 ity of [employer] [place].2.[place] [phone] Pr dicma nal 9 [facility] 2020-09-21 2020-09-21 Laboratory Pc, Adc Echo Room 1 - [facility] 1 .2.840.114 [id number] Univers 08:54:35 09:49:44 Only Elin King 350.1.13.10 ity of [employer] [place].2.7.2.[place] [phone] Pr dical nal [address] [place] [address] 2020-09-21 2020-09-21 Outpatient R FERNANDO [facility] [id number] Univers 09:00:00 09:00:00 ELIN lopez o f [facility] 2020-09-16 2020-09-16 Nurse Visit, [facility] Nurse [facility] 1.2.840.1 14 [id number] Univers 16:07:24 16:23:39 Visit Lola Ziegler 350.1.13. 10 ity of [employer] [place]2.7.2.[place] [phone] [address] 2020-09-16 2020-09-16 Office Toney [facility] 1..840.114 [id number] Univers 15:03:50 16:22:24 Visit Lola Desai 350.1.13.10 ity of [employer] [place].2.[place].2.[place] [phone] [address] 2020-09-16 2020-09-16 Out[facility] [id number] Univers 15:30:00 15:30:00 SENDIL ity [facility] 2020-09-16 2020-09-16 Outpatient [facility] [id number] Univers 13:30:00 13:30:00 SENDIL ity [facility] 2020-09-16 2020-09-16 Orders Doctor JAVON 1.2.840.114 [id number] Univers 00:00:00 00:00:00 Only Unassigned, ALEJANDRO 350.1.13.10 ity of [place] [facility] 4.2.7.2.686 Junior as [phone] [address] 2020-09-08 2020-09-08 Outpatient R [facility] [id number] Univers 13:20:00 13:20:00 ELIN lopez o f [facility] 2020-08-25 2020-08-25 Telephone PcpJAVON 1.2.698.354 [id number] Univers 00:00:00 00:00:00 Patient ALEJANDRO 350.1.13.10 it y of [place] [facility] [place].2.[place] [phone] [facility] [address] 2020-08-23 2020-08-23 Urgent Provider, [facility] 1.2.840.114 [id number] Univers 17:44:00 18:04:[address] [facility] 350.1.13.10 ity of [place] 4.2.7.2.686 Junior as Professio [phone] [address] Office [facility] 2020-08-23 2020-08-23 Outpatient R FRANSICO [facility] [id number] Univers 17:40:00 17:40:00 JAVON lopez [facility] 2020-08-19 2020-08-19 Orders Doctor JAVON [id number] [id number] Univers 00:00:00 00:00:00 Only Unassigned, ALEJANDRO 350.1.13.10 ity of [place] [facility] 4.2.7.2.686 Junior as [phone] [facility] [address] 2020-01-12 2020-01-12 [facility] [id number] [employer] 00:00:00 00:00:00 [facility] 350.1.13.10 it y of [place] 4.2.7.2.686 Junior as Professio [phone] [address] Office [facility] 2020-01-11 2020-01-11 Urgent Pob1, Acute Care Clinic [facility] 1. 2.840.114 [id number] Univers 12:05:48 12:39:21 Care Green, [facility] 350.1.13.10 ity of [place] 4.2.7.2.686 Junior as Professio [phone] [address] Office [facility] 2020-01-11 2020-01-11 Outpatient R YAYA [facility] [id number] Univers 12:00:00 12:00:00 NORI lopez [facility] 2020-01-11 2020-01-11 Orders Doctor ALEJANDRO 1.2.840.114 [id number] Univers 00:00:00 00:00:00 Only Unassigned, ALEJANDRO 350.1.13.10 ity of [place] [facility] 4.2.7.2.686 Junior as [phone] [address] 2019-12-26 2019-12-26 Outpatient BINDAL, [facility] [id number] 00:00:00 00:00:00 SB [address] 2019-10-15 2019-10-15 Outpatient BINDAL, [facility] [id number] 00:00:00 00:00:00 SB [address] 2019-08-28 2019-08-28 Outpatient MHSE [facility]SE [id number] 14:04:00 14:04:00 [facility] 2019-08-20 2019-08-20 Outpatient BINDAL, [facility] [id number] 00:00:00 00:00:00 SB [address] 2019-08-20 2019-08-20 Outpatient BINDAL, [facility] [id number] 00:00:00 00:00:00 SB [address] 2019-08-20 2019-08-20 Outpatient BINDAL, [facility] [id number] 00:00:00 00:00:00 SB [address] 2019-07-09 2019-07-09 Outpatient BINDAL, [facility] [id number] 00:00:00 00:00:00 SB [address] Results Test Description Test Time Test Comments Results Result Comments Source POCT CREATININE 2023-01-16 19:20:05 Test Item Value Reference Range Interpretation Comme nts POCT Creatinine (test code = 6429159194) 0.6 mg/dL 0.5-1.1 Lab Interpretation (test code = 51306-2) Normal [facility] MOLECULAR [id number] 17:11:46 Test Item Value Reference Range Interpretation Comments POCT Molecular Strep (test code = Negative Negative 61057-2) Lab Interpretation (test code = Normal 86716-6) [facility] MOLECULAR [id number] 17:11:46 Test Item Value Reference Range Interpretation Comments POCT Molecular Strep (test code = Negative Negative 59073-6) Lab Interpretation (test code = Normal 66027-7) [facility] MOLECULAR [id number] 16:53:38 Test Item Value Reference Range Interpretation Comments POCT Molecular FluA (test code = Negative Negative 33330-5) POCT Molecular FluB (test code = Negative Negative 59718-7) Lab Interpretation (test code = Normal 20378-1) [facility] MOLECULAR [id number] 16:53:38 Test Item Value Reference Range Interpretation Comments POCT Molecular FluA (test code = Negative Negative 71526-9) POCT Molecular FluB (test code = Negative Negative 73637-2) Lab Interpretation (test code = Normal 27631-8) [facility]. METABOLIC PANEL (98516)2022-08-25 05:02:14 Test Item Value Reference Range Interpretation Comments NA (test code = 139 mmol/L 135-145 5631285009) K (test code = 4.0 mmol/L 3.5-5.0 8088394412) CL (test code = 101 mmol/L 98-108 3044895934) CO2 TOTAL (test code = 33 mmol/L 23-31 H 9507173216) AGAP (test code = 2-16 1647498652) BUN (test code = 13 mg/dL 7-23 0617370821) GLUCOSE (test code = 88 mg/dL 70-110 9650523402) CREATININE (test code = 0.58 mg/dL 0.50-1.04 1623087079) TOTAL BILI (test code = 1.2 mg/dL 0.1-1.1 H 7210482534) CALCIUM (test code = 9.5 mg/dL 8.6-10.6 1206412428) T PROTEIN (test code = 6.9 g/dL 6.3-8.2 7383288182) ALBUMIN (test code = 4.2 g/dL 3.5-5.0 6760734054) ALK PHOS (test code = 133 U/L 34-122 H 0857065286) ALTv (test code = 37 U/L 5-35 H 1742-6) AST(SGOT) (test code = 23 U/L 13-40 5255701092) eGFR (test code = mL/min/1.73m2 0313749119) AUDRA (test code = AUDRA) Association of Glomerular Filtration Rate (GFR) and Staging of Kidney Disease* + --+ --+ ------+| GFR (mL/min/1.73 m2) ?| With Kidney Damage ?| ?Without Kidney Damage+ --------+ --------+ +| ?>90 ?| ?Stage one ?| ? Normal ?+ ---+ ---+ -------+| ?60-89 ?| ?Stage two ?| ? Decreased GFR ? + --+ --+ ------+| ?30-59 ?| ?Stage three ?| ? Stage three ? + --+ --+ ------+| ?15-29 ?| ?Stage four ? | ? Stage four ?+ ---+ ---+ -------+| ?<15 (or dialysis) ? ?| ?Stage five ? | ? Stage five ?+ ---+ ---+ -------+ *Each stage assumes the associated GFR level has been in effect for at least three months. ?Stages 1 to 5, with or without kidney disease, indicate chronic kidney disease. Notes: Determination of stages one and two (with eGFR >59mL/min/1.73 m2) requires estimation of kidney damage for at least three months as defined by structural or functional abnormalities of the kidney, manifested by either:Pathological abnormalities or Markers of kidney damage (including abnormalities in the composition of the blood or urine or abnormalities in imaging tests). Lab Interpretation Abnormal (test code = 34229-5) [facility]. METABOLIC PANEL (39205)2022-08-25 05:02:14 Test Item Value Reference Range Interpretation Comments NA (test code = 139 mmol/L 135-145 2478667625) K (test code = 4.0 mmol/L 3.5-5.0 0969426091) CL (test code = 101 mmol/L 98-108 8242968795) CO2 TOTAL (test code = 33 mmol/L 23-31 H 7900259273) AGAP (test code = 2-16 1702463627) BUN (test code = 13 mg/dL 7-23 9986032482) GLUCOSE (test code = 88 mg/dL 70-110 8049740693) CREATININE (test code = 0.58 mg/dL 0.50-1.04 2177637652) TOTAL BILI (test code = 1.2 mg/dL 0.1-1.1 H 3352377149) CALCIUM (test code = 9.5 mg/dL 8.6-10.6 8262113595) T PROTEIN (test code = 6.9 g/dL 6.3-8.2 9228604012) ALBUMIN (test code = 4.2 g/dL 3.5-5.0 0562495585) ALK PHOS (test code = 133 U/L 34-122 H 3900489920) ALTv (test code = 37 U/L 5-35 H 1742-6) AST(SGOT) (test code = 23 U/L 13-40 7064784893) eGFR (test code = mL/min/1.73m2 9931446840) AUDRA (test code = AUDRA) Association of Glomerular Filtration Rate (GFR) and Staging of Kidney Disease* + --+ --+ ------+| GFR (mL/min/1.73 m2) ?| With Kidney Damage ?| ?Without Kidney Damage+ --------+ --------+ +| ?>90 ?| ?Stage one ?| ? Normal ?+ ---+ ---+ -------+| ?60-89 ?| ?Stage two ?| ? Decreased GFR ? + --+ --+ ------+| ?30-59 ?| ?Stage three ?| ? Stage three ? + --+ --+ ------+| ?15-29 ?| ?Stage four ? | ? Stage four ?+ ---+ ---+ -------+| ?<15 (or dialysis) ? ?| ?Stage five ? | ? Stage five ?+ ---+ ---+ -------+ *Each stage assumes the associated GFR level has been in effect for at least three months. ?Stages 1 to 5, with or without kidney disease, indicate chronic kidney disease. Notes: Determination of stages one and two (with eGFR >59mL/min/1.73 m2) requires estimation of kidney damage for at least three months as defined by structural or functional abnormalities of the kidney, manifested by either:Pathological abnormalities or Markers of kidney damage (including abnormalities in the composition of the blood or urine or abnormalities in imaging tests). Lab Interpretation Abnormal (test code = 26404-0) [facility] Test Item Value Reference Range Interpretation Comments LIPASE (test code = 6868498919) 155 U/L 0-220 Lab Interpretation (test code = Normal 48285-3) [facility]:01[facility]53 Test Item Value Reference Range Interpretation Comments LIPASE (test code = 8214826350) 155 U/L 0-220 Lab Interpretation (test code = Normal 50645-2) [facility] WITH [id number] 04:52:33 Test Item Value Reference Range Interpretation Comments WBC (test code = See_Comment [Automated message] 9190-2) The system [employer] generated this result transmitted ref erence range: 4.30 - 1 1.10 10*3/?L. The re ference range was not u sed to interpret this result as normal/abnor mal. RBC (test code = See_Comment [Automated message] 899-8) The system [employer] generated this result transmitted ref erence range: 3.93 - 5 .25 10*6/?L. The re ference range was not u sed to interpret this result as normal/abnor mal. HGB (test code = 13.4 g/dL 11.6-15.0 718-7) HCT (test code = 41.4 % 35.7-45.2 4544-3) MCV (test code = 90.0 fL 80.6-95.5 787-2) MCH (test code = 29.1 pg 25.9-32.8 785-6) MCHC (test code = 32.4 g/dL 31.6-35.1 786-4) RDW-SD (test code 46.5 fL 39.0-49.9 = 67125-5) RDW-CV (test code 14.2 % 12.0-15.5 = 788-0) PLT (test code = See_Comment [Automated message] 257-3) The system [employer] generated this result transmitted ref erence range: 166 - 35 8 10*3/?L. The re ference range was not u sed to interpret this result as normal/abnor mal. MPV (test code = 10.7 fL 9.5-12.9 40521-3) NRBC/100 WBC (test See_Comment [Automat ed message] code = 1342962934) The syste m which generated this result transmitted ref erence range: 0.0 - 10 .0 /100 WBCs. The refer ence range was not u sed to interpret this result as normal/abnor mal. NRBC x10^3 (test See_Comment [Automated message] code = 5377303210) The syste m which generated this result transmitted ref erence range: 10*3/?L. The reference range was not used to interpr et this result as normal/abnormal . GRAN MAT (NEUT) % 58.3 % (test code = 770-8) IMM GRAN % (test 0.50 % code = 3878548617) LYMPH % (test code 32.6 % = 736-9) MONO % (test code 7.9 % = 5905-5) EOS % (test code = 0.4 % 713-8) BASO % (test code 0.3 % = 706-2) GRAN MAT 5.57 10*3/uL 1.88-7.09 x10^3(ANC) (test code = 4376168434) IMM GRAN x10^3 0.05 10*3/uL 0.00-0.06 (test code = 8604596740) LYMPH x10^3 (test 3.12 10*3/uL 1.32-3.29 code = 731-0) MONO x10^3 (test 0.76 10*3/uL 0.33-0.92 code = 742-7) EOS x10^3 (test 0.04 10*3/uL 0.03-0.39 code = 711-2) BASO x10^3 (test 0.03 10*3/uL 0.01-0.07 code = 704-7) [facility] WITH [id number] 04:52:33 Test Item Value Reference Range Interpretation Comments WBC (test code = See_Comment [Automated message] 6690-2) The system whic h generated this result transmitted ref erence range: 4.30 - 1 1.10 10*3/?L. The re ference range was not u sed to interpret this result as normal/abnor mal. RBC (test code = See_Comment [Automated message] 789-8) The system [employer] generated this result transmitted ref erence range: 3.93 - 5 .25 10*6/?L. The re ference range was not u sed to interpret this result as normal/abnor mal. HGB (test code = 13.4 g/dL 11.6-15.0 718-7) HCT (test code = 41.4 % 35.7-45.2 4544-3) MCV (test code = 90.0 fL 80.6-95.5 787-2) MCH (test code = 29.1 pg 25.9-32.8 785-6) MCHC (test code = 32.4 g/dL 31.6-35.1 786-4) RDW-SD (test code 46.5 fL 39.0-49.9 = 12341-0) RDW-CV (test code 14.2 % 12.0-15.5 = 788-0) PLT (test code = See_Comment [Automated message] 777-3) The system [employer] generated this result transmitted ref erence range: 166 - 35 8 10*3/?L. The re ference range was not u sed to interpret this result as normal/abnor mal. MPV (test code = 10.7 fL 9.5-12.9 98017-9) NRBC/100 WBC (test See_Comment [Automat ed message] code = 0257325756) The syste [employer] which generated this result transmitted ref erence range: 0.0 - 10 .0 /100 WBCs. The refer ence range was not u sed to interpret this result as normal/abnor mal. NRBC x10^3 (test See_Comment [Automated message] code = 2999964387) The syste m which generated this result transmitted ref erence range: 10*3/?L. The reference range was not used to interpr et this result as normal/abnormal . GRAN MAT (NEUT) % 58.3 % (test code = 770-8) IMM GRAN % (test 0.50 % code = 7504594042) LYMPH % (test code 32.6 % = 736-9) MONO % (test code 7.9 % = 5905-5) EOS % (test code = 0.4 % 713-8) BASO % (test code 0.3 % = 706-2) GRAN MAT 5.57 10*3/uL 1.88-7.09 x10^3(ANC) (test code = 9217431730) IMM GRAN x10^3 0.05 10*3/uL 0.00-0.06 (test code = 6799778435) LYMPH x10^3 (test 3.12 10*3/uL 1.32-3.29 code = 731-0) MONO x10^3 (test 0.76 10*3/uL 0.33-0.92 code = 742-7) EOS x10^3 (test 0.04 10*3/uL 0.03-0.39 code = 711-2) BASO x10^3 (test 0.03 10*3/uL 0.01-0.07 code = 704-7) [facility] MOLECULAR [id number] 21:41:03 Test Item Value Reference Range Interpretation Comments POCT Molecular FluA (test code = Negative Negative 58128-4) POCT Molecular FluB (test code = Negative Negative 41690-6) Lab Interpretation (test code = Normal 01617-0) [facility] MOLECULAR [id number] 21:41:03 Test Item Value Reference Range Interpretation Comments POCT Molecular FluA (test code = Negative Negative 23446-2) POCT Molecular FluB (test code = Negative Negative 65112-1) Lab Interpretation (test code = Normal 04356-0) [facility] BREAST [id number] 14:38:00 Test Item Value Reference Range Interpretation Comments [facility] BREAST CASES (test code = OW[facility]U) -----RUN DATE: 12/29/20 [facility] - LAB PAGE 1 RUN TIME: 1108 Specimen Inquiry RUN USER: INTERFACE -----PATIENT: NEETA SINCLAIR LOC: YAMILETH Jo-Ann #: [id number] AGE/SX: 60/F ROOM: RE12/08/20[facility] DR: Elaine Avitia MD : 62 BED: DIS: STATUS: DEP REF TLOC: ----- SPEC #: [id number] RECD: 12/08/20 STATUS: MARCIA KELLY #: [id number] ALEX: 12/08/[address]: Elaine Avitia MD ENTERED: 12/08/20 SP TYPE: FRANCOISE REICH DR: No Primary or Family PhysicianORDERED: [facility] BILLING COPIES TO: No Primary [place] [address] [address] [place] [address] HISTOLOGY: TISSUE ID BLK PCS TAYLOR LEV PROCEDURE DISPOSITION ____ ___ ___ ___ AXILLA, NOS A 1 2 PROCEDURES: [facility] BILLING (12/08/20) TISSUES: A. AXILLA, NOS - LEFT AXILLA LYMPH NODE BIOPSY ADDENDUM FINDINGS Addendum #1 Entered: 12/27/20-1208 This case was inadvertently signed out on 12/10/2020, incomplete and pending outside consultation. This addendum is created to provide our final report and addition of the outside consultation. Result ID: [id number] Clinical History Left axilla lymph node abnormality, 1.8 cm Diagnosis Lymph node, left axilla, ultrasound-guided biopsy: LYMPHOID TISSUE WITH NO DEFINITIVE EVIDENCE OF LYMPHOPROLIFERATIVE DISORDER (SEE COMMENTS) Comments See attached flow cytometry report and outside consultation report. If clinical suspicion is high, recommend complete excision to further evaluate. CONTINUED ON NEXT PAGE -----RUN DATE: 12/29/20 [facility] PAGE 2 RUN TIME: 1108 Specimen Inquiry RUN USER: INTERFACE -----SPEC #: [facility]:[id number] PATIENT: NEETA SINCLAIR #[id number] (Continued) ADDENDUM FINDINGS (Continued) Gross Description "Left axilla lymph node" Received in formalin are five thin cores of chapin soft tissue, 0.1 - 0.5 cm. The specimen is filtered in a teabag and entirely submitted as A. /nr Fixation time: The specimen was obtained on December 08, 2020 at 1328 PANTOGRAPH OPERATOR and placed in formalin at 1330 PANTOGRAPH OPERATOR (cold ischemic time 2 minutes), processor started on December 09, 2020 at 0300 PANTOGRAPH OPERATOR, fixation time 03 hours 30 minutes. Microscopic Findings "Left axilla lymph node" Lymphoid tissue with follicles present. CD3 and CD20 immunohistochemical stains ordered. Portion submitted for flow cytometry and slides sent for outside consultation. Findings from outside consultation submitted under separate cover. Intradepartmental Consultation: Benji Casillas M.D. Extradepartmental Consultation: [employer] ELECTRONIC SIGNATURE Alma Wolfe M.D. [phone] Addendum Signed SIGNATURE ON FILE Alma Wolfe 12/29/20 1107 ----- FLOW CYTOMETRY REPORT [employer] - Flow Cytometry Analysis Accession / CaseNo: [id number] / [id number] Collection Date: 12/08/2020 Received Date: 12/08/2020 Report Date: 12/09/2020 Diagnosis: T-cells show an increased CD4:CD8 ratio of 7.5:1, without overt phenotypic abnormality. Comments: Immunologic activation resulting in expansion of the CD4+ T-cell subset may be seen with potential etiologies including inflammation, bacterial infection and autoimmunity. It may also be seen in association with some neoplasms (e.g. Hodgkin lymphoma, some large cell and T-cell lymphomas, carcinoma) which otherwise may not demonstrate specific immunophenotypic alterations by flow cytometry. Complete evaluation will require histomorphologic and clinical correlation. CONTINUED ON NEXT PAGE -----RUN DATE: 12/29/20 [facility] - LAB PAGE 3 RUN TIME: 1108 Specimen Inquiry RUN USER: INTERFACE -----SPEC #: [facility]:[id number] PATIENT: NEETA SINCLAIR #[id number] (Continued) FLOW CYTOMETRY REPORT (Continued) No immunophenotypic evidence of a B-cell or plasma cell neoplasm is demonstrated. Flow Differential (%) and Population Analysis: Lymphocytes: 95.7% T-cells (79% of lymphoid cells) show a CD4/CD8 ratio of 7.5 without overt phenotypic abnormality. NKcells (1% of lymphoid cells) are unremarkable. Mature B-cells (22% of lymphoid cells) are polyclonal (kappa:lambda 2.2). Monocytes: 0.8% Granulocytes: 0.8% CD45 Dim: 0.3% CD34+ cells are not detected. CD45 Ne.4% Non-hematopoietic cells, erythroids and cell debris. Plasma Cells: 0.2% Plasma cells show unremarkable surface antigen expression. Markers Performed: CD2, CD3, CD4, CD5, CD7, CD8, CD10, CD11b, CD11c, CD13, CD14, CD15, CD16, CD19, CD20, CD23, CD33, CD34, CD38, CD41, CD45, CD56, CD64, CD71, CD117, CD138, WF094d, FMC-7, HLA-DR, [place], Lambda (31 Markers) CPT Codes: 67137n4, 56768m48, 44635a6 Microscopic Description A digital image of a cytospin slide was reviewed for QA purposes. Evaluation is limited by degenerative changes. Electronic Signature Sonny Zuniga M.D., Pathologist The Technical Component Processing, Analysis and Professional Component of this test was completed at [facility], [address] [place] [address], [address], [place], [place] / [address] / [phone] / CLIA# [id number] / Regional Sales Coordinator(s): Sonny Zuniga MD. This test was developed and its performance characteristics determined by the performing laboratory. It has not been cleared or approved by the U.S. Food and Drug Administration. The FDA has determined that such clearance or approval is not necessary. This test is used for clinical purposes. It should not be regarded as investigational or for research. This laboratory is certified under the Clinical Laboratory Improvement Amendments of 1988 (CLIA) as qualified to CONTINUED ON NEXT PAGE -----RUN DATE: 12/29/20 [facility] PAGE 4 RUN TIME: 1108 Specimen Inquiry RUN USER: INTERFACE -----SPEC #: PMC:[id number] PATIENT: NEETA SINCLAIR #[id number] (Continued) FLOW CYTOMETRY REPORT (Continued) perform high complexity clinical testing. Images that may be included within this report are billing representative of the patient but not all testing in its entirety and should not be used to render a result. The CPT codes provided with our test descriptions are based on AMA guidelines and are for informational purposes only. Correct CPT coding is the sole responsibility of the billing democrat. Please direct any questions regarding coding to the payer being billed. OUTSIDE CONSULTATION REPORT Addendum #1 Entered: 12/27/20-1215 [employer] - Diagnostic Consult Full Consult Accession / CaseNo: [id number] / [id number] Collection Date: 12/08/2020 Received Date: 12/14/2020 Report Date: 12/24/2020 Diagnosis: LEFT AXILLA LYMPH NODE, NEEDLE CORE BIOPSY ([id number]): Fragment of Lymphoid tissue containing lymphoid follicles, see comment Comments: Submitted specimen are consistent with small gauge needle core biopsy of lymphoid tissue containing lymphoid follicles. No sheets of large atypical lymphoid tissue are seen. CD3 stains interfollicular and scattered intrafollicular small T cells. CD20 labels lymphoid follicles. The block is exhausted and definitive diagnosis cannot be rendered with this limited sample. Excisional biopsy of enlarge lymph node is recommended. Gross Description: We received the following materials: 2 H E-stained slides labeled: [id number]: A1-L1, A1-L2. 2 stained slides labeled: [id number]: CD20, CD3. 3 unstained slides labeled: [id number]. ADDITIONAL MATERIAL RECEIVED 17 DEC 2020: 1 block labeled: [id number]. IHC and Special Stains: PAX-5 and BCL-2 were attempted, but noncontributory (tissue exhausted) All controls were reviewed and showed appropriate positive and negative immunoreactivity. Electronic Signature CONTINUED ON NEXT PAGE -----RUN DATE: 12/29/20 [facility] - LAB PAGE 5 RUN TIME: 1108 Specimen Inquiry RUN USER: INTERFACE -----SPEC #: [id number]:[id number] PATIENT: NEETA SINCLAIR #[id number] (Continued) OUTSIDE CONSULTATION REPORT (Continued) Alin Calvert M.D., Pathologist The Technical Component Processing, Analysis and Professional Component of this test [facility], [address] [place] [address], [place] / [address] / [phone] / CLIA #[id number] / Regional Sales Coordinator(s): Rebeca Tracy M.D. The performance characteristics of the IHC/CHAI assays have been validated on formalin-fixed paraffin embedded tissues only. The performance characteristics of this test have been determined by the performing laboratory. The test has not been cleared or approved by the U.S. Food and Drug Administration ("FDA"), as the FDA has determined such clearance or approval is not necessary. This test is used for clinical purposes. It should not be regarded as investigational or for research. This laboratory is certified under the Clinical Laboratory Improvement Amendments of 1988 ("CLIA") as qualified to perform high complexity clinical laboratory testing. For the classification of IHC antibodies, please contact the Client Services team. Images that may be included within this report are billing representative of the patient but not all testing in its entirety and should not be used to render a result. Addendum Signed SIGNATURE ON FILE Alma Wolfe 12/29/20 1108 ----- [facility] PATHOLOGY REPORT Result ID: [id number] Clinical History Left axilla lymph node abnormality, 1.8 cm Diagnosis Lymph node, left axilla, ultrasound-guided biopsy: Comments Gross Description "Left axilla lymph node" Received in formalin are five thin cores of chapin soft tissue, 0.1 - 0.5 cm. The specimen is filtered in a teabag and entirely submitted as A. /nr Fixation time: The specimen was obtained on December 08, 2020 at ??? PANTOGRAPH OPERATOR and CONTINUED ON NEXT PAGE -----RUN DATE: 12/29/20 [facility] PAGE 6 RUN TIME: 1107 Specimen Inquiry RUN USER: INTERFACE -----SPEC #: [facility]:[id number] PATIENT: NEETA SINCLAIR #[id number] (Continued) [facility] PATHOLOGY REPORT (Continued) placed in formalin at 1330 PANTOGRAPH OPERATOR (cold ischemic time ??? minutes), processor started on December ???, 2020 at ??? PANTOGRAPH OPERATOR, fixation time ??? hours ??? minutes. Microscopic Findings "Left axilla lymph node" Intradepartmental Consultation: ELECTRONIC SIGNATURE [phone] Signed SIGNATURE ON FILE Alma Wolfe 12/10/20 1438 ----- END OF REPORT [facility] BREAST [id number] 14:38:00 Test Item Value Reference Range Interpretation Comments [facility] BREAST CASES (test code = FRANCOISE) --------RUN DATE: 12/10/20 [facility] - [facility] PAGE 1 RUN TIME: 1438 Specimen Inquiry RUN USER: INTERFACE --------PATIENT: NEETA SINCLAIR LOC: YAMILETH Jo-Ann #: [id number] AGE/SX: 60/F ROOM: RE12/08/20REG DR: Elaine Avitia MD : 62 BED: DIS: STATUS: PRE REF TLOC: -------- SPEC #: [id number] RECD: 12/08/20 STATUS: MARCIA KELLY #: [id number] ALEX: 12/08/[address] [facility] [address]: Elaine Avitia MD ENTERED: 12/08/20 SP TYPE: FRANCOISE REICH DR: No Primary or Family PhysicianORDERED: [facility] BILLING COPIES TO: No Primary [place] [address] [address] [place] [address] HISTOLOGY: TISSUE ID BLK PCS TAYLOR LEV PROCEDURE DISPOSITION ____ ___ ___ ___ AXILLA, NOS A 1 2 PROCEDURES: FRANCOISE PAGAN (12/08/20-1357) TISSUES: A. AXILLA, NOS - LEFT AXILLA LYMPH NODE BIOPSY FLOW CYTOMETRY REPORT [employer] - Flow Cytometry Analysis Accession / CaseNo: [id number] / [id number] Collection Date: 12/08/2020 Received Date: 12/08/2020 Report Date: 12/09/2020 Diagnosis: T-cells show an increased CD4:CD8 ratio of 7.5:1, without overt phenotypic abnormality. Comments: Immunologic activation resulting in expansion of the CD4+ T-cell subset may be seen with potential etiologies including inflammation, bacterial infection and autoimmunity. It may also be seen in association with some neoplasms (e.g. Hodgkin lymphoma, some large cell and T-cell lymphomas, carcinoma) which otherwise may not demonstrate specific immunophenotypic alterations by flow cytometry. Complete evaluation will require histomorphologic and clinical correlation. No immunophenotypic evidence of a B-cell or plasma cell neoplasm is demonstrated. Flow Differential (%) and Population Analysis: Lymphocytes: 95.7% T-cells CONTINUED ON NEXT PAGE --------RUN DATE: 12/10/20 [facility] PAGE 2 RUN TIME: 1438 Specimen Inquiry RUN USER: INTERFACE --------SPEC #: PMC:[id number] PATIENT: NEETA SINCLAIR #[id number] (Continued) FLOW CYTOMETRY REPORT (Continued) (79% of lymphoid cells) show a CD4/CD8 ratio of 7.5 without overt phenotypic abnormality. NKcells (1% of lymphoid cells) are unremarkable. Mature B-cells (22% of lymphoid cells) are polyclonal (kappa:lambda 2.2). Monocytes: 0.8% Granulocytes: 0.8% CD45 Dim: 0.3% CD34+ cells are not detected. CD45 Ne.4% Non-hematopoietic cells, erythroids and cell debris. Plasma Cells: 0.2% Plasma cells show unremarkable surface antigen expression. Markers Performed: CD2, CD3, CD4, CD5, CD7, CD8, CD10, CD11b, CD11c, CD13, CD14, CD15, CD16, CD19, CD20, CD23, CD33, CD34, CD38, CD41, CD45, CD56, CD64, CD71, CD117, CD138, FU562j, FMC-7, HLA-DR, [place], Lambda (31 Markers) CPT Codes: 95396u8, 92414b03, 79650j4 Microscopic Description A digital image of a cytospin slide was reviewed for QA purposes. Evaluation is limited by degenerative changes. Electronic Signature Sonny Zuniga M.D., Pathologist The Technical Component Processing, Analysis and Professional Component of this test was completed at [facility], [address] [place] [address], [address], [place], [place] / [address] / [phone] / CLIA# [id number] / Regional Sales Coordinator(s): Sonny Zuniga MD. This test was developed and its performance characteristics determined by the performing laboratory. It has not been cleared or approved by the U.S. Food and Drug Administration. The FDA has determined that such clearance or approval is not necessary. This test is used for clinical purposes. It should not be regarded as investigational or for research. This laboratory is certified under the Clinical Laboratory Improvement Amendments of 1988 (CLIA) as qualified to perform high complexity clinical testing. Images that may be included within this report are billing representative of the patient but not all testing in its entirety and should not be used to render a result. CONTINUED ON NEXT PAGE --------RUN DATE: 12/10/20 [facility] PAGE 3 RUN TIME: 1438 Specimen Inquiry RUN USER: INTERFACE --------SPEC #: [facility]:[id number] PATIENT: NEETA SINCLAIR #[id number] (Continued) FLOW CYTOMETRY REPORT (Continued) The CPT codes provided with our test descriptions are based on AMA guidelines and are for informational purposes only. Correct CPT coding is the sole responsibility of the billing democrat. Please direct any questions regarding coding to the payer being billed. [facility] RE[facility] Result ID: [id number] Clinical History Left axilla lymph node abnormality, 1.8 cm Diagnosis Lymph node, left axilla, ultrasound-guided biopsy: Comments Gross Description "Left axilla lymph node" Received in formalin are five thin cores of chapin soft tissue, 0.1 - 0.5 cm. The specimen is filtered in a teabag and entirely submitted as A. /nr Fixation time: The specimen was obtained on December 08, 2020 at ??? [facility] and placed in formalin at 1330 [facility] (cold ischemic time ??? minutes), processor started on December ???2020 at ??? [facility], fixation time ??? hours ??? minutes. Microscopic Findings "Left axilla lymph node" Intradepartmental Consultation: ELECTRONIC SIGNATURE [phone] Signed SIGNATURE ON FILE Alma Wolfe 12/10/20 1438 -------- END OF REPORT
[2023-05-02 23:46] LABS: Protime INR 1.03
[2023-05-02 23:47] LABS: Absolute Lymphocytes (CBC) 2.3 K/uL (0.7-4.9); Hematocrit 37.9 % (36.0-45.0); MCV 90.2 fL (80-100); MPV 8.5 fL (7.6-11.3)
[2023-05-02] MEDS ORDERED: ONDANSETRON 4 MG/2 ML VIAL ONE (23:47)
[2023-05-02] MEDS ORDERED: MORPHINE 4 MG/ML SYR ONE (23:47)
[2023-05-02 23:59] LABS: Albumin 3.6 g/dL (3.4-5.0); Bilirubin Direct 0.2 mg/dL (0-0.2); Bilirubin Indirect, Calculated 0.7 mg/dL (0.2-0.8); Bilirubin Total 0.9 mg/dL (0.2-1.0); Magnesium 2.1 mg/dL (1.6-2.4); Potassium 3.7 mEq/L (3.5-5.1); Protein, Total 7.5 g/dL (6.4-8.2); Troponin High Sensitivity 16.8 pg/mL (<58.9)
--- NOTE | 2023-05-03 02:28 | ER ---
Nurse's Notes [facility] Name: Donna Sinclair Age: 62 yrs Sex: Female : 1960 Arrival Date: 05/02/2023 Time: 23:00 Bed 5 Private MD: Oliverio Bustamante E Diagnosis: Chest pain, unspecified;Hypertensive heart disease without heart failure Presentation: 05/02 23:15 Chief complaint: Patient states: "I started having mild chest pain around 1130 today vc1 but the last hour it has become severe and now I'm short of breath. I've had pleurisy and a blood clot in my lungs before and it feels the same.". Coronavirus screen: Vaccine status: Patient reports being unvaccinated. Client denies travel out of the [place] in the last 14 days. At this time, the client does not indicate any symptoms associated with coronavirus-19. Ebola Screen: Patient negative for fever greater than or equal to 101.5 degrees Fahrenheit, and additional compatible Ebola Virus Disease symptoms Patient denies exposure to infectious person. Patient denies travel to an Ebola-affected area in the 21 days before illness onset. No symptoms or risks identified at this time. Initial Sepsis Screen: Does the patient meet any 2 criteria? No. Patient's initial sepsis screen is negative. Does the patient have a suspected source of infection? No. Patient's initial sepsis screen is negative. Risk Assessment: Do you want to hurt yourself or someone else? Patient reports no desire to harm self or others. Onset of symptoms was May 02, 2023 at 11:30. 23:15 Method Of Arrival: Wheelchair vc1 23:15 Acuity: CAMELIA 3 vc1 Triage Assessment: 23:19 General: Appears uncomfortable, Behavior is cooperative, anxious. Pain: Complains of vc1 pain in chest Pain radiates to right arm Pain currently is 10 out of 10 on a pain scale. EENT: No deficits noted. No signs and/or symptoms were reported regarding the EENT system. Neuro: Level of Consciousness is awake, alert, obeys commands, Oriented to person, place, time, situation, Appropriate for age. Cardiovascular: Reports chest pain, shortness of breath, Patient's skin is warm and dry. Rhythm is sinus rhythm Chest pain is described as severe, Pain is 10 out of 10 on a pain scale. quality is sharp, radiates to right arm(s) is aggravated by breathing. Respiratory: Reports shortness of breath at rest Airway is patent Respiratory effort is even, unlabored, Respiratory pattern is regular, symmetrical, Onset: The symptoms/episode began/occurred just prior to arrival, the patient has mild shortness of breath. GI: No deficits noted. No signs and/or symptoms were reported involving the gastrointestinal system. : No deficits noted. No signs and/or symptoms were reported regarding the genitourinary system. Derm: No deficits noted. No signs and/or symptoms reported regarding the dermatologic system. Musculoskeletal: No deficits noted. No signs and/or symptoms reported regarding the musculoskeletal system. Historical: - Allergies: 23:17 Savella; vc1 - Home Meds: 23:17 Eliquis oral [Active]; vc1 - PMHx: 23:17 clot in lung; CVA; EDEMA; Fibromyalgia; Hypertension; vc1 - PSHx: 23:17 None; vc1 - Immunization history:: Client reports having NOT received the Covid vaccine. - Social history:: Smoking status: Patient denies any tobacco usage or history of. Screenin:19 [facility] ED Fall Risk Assessment (Adult) History of falling in the last 3 months, vc1 including since admission No falls in past 3 months (0 pts) Confusion or Disorientation No (0 pts) Intoxicated or Sedated No (0 pts) Impaired Gait No (0 pts) Mobility Assist Device Used No (0 pt) Altered Elimination No (0 pt) Score/Fall Risk Level 0 - 2 = Low Risk Oriented to surroundings, Maintained a safe environment, Educated pt \\T\\ family on fall prevention, incl call for assistance when getting out of bed. Abuse screen: Denies threats or abuse. Nutritional screening: No deficits noted. Tuberculosis screening: No symptoms or risk factors identified. Assessment: 23:30 Reassessment: See triage assessment. vc1 23:30 Pain: Complains of pain in chest Pain radiates to right arm Pain currently is 10 out of vc1 10 on a pain scale. 05/03 00:14 Reassessment: No changes from previously documented assessment. Patient and/or family vc1 updated on plan of care and expected duration. Pain level reassessed. 01:00 Reassessment: No changes from previously documented assessment. Patient and/or family vc1 updated on plan of care and expected duration. Pain level reassessed. Patient is alert, oriented x 3, equal unlabored respirations, skin warm/dry/pink. 02:00 Reassessment: No changes from previously documented assessment. Patient and/or family vc1 updated on plan of care and expected duration. Pain level reassessed. Patient is alert, oriented x 3, equal unlabored respirations, skin warm/dry/pink. 03:00 Reassessment: No changes from previously documented assessment. Patient and/or family vc1 updated on plan of care and expected duration. Pain level reassessed. Patient is alert, oriented x 3, equal unlabored respirations, skin warm/dry/pink. 04:00 Reassessment: No changes from previously documented assessment. Patient and/or family vc1 updated on plan of care and expected duration. Pain level reassessed. Patient is alert, oriented x 3, equal unlabored respirations, skin warm/dry/pink. 05:00 Reassessment: No changes from previously documented assessment. Patient and/or family vc1 updated on plan of care and expected duration. Pain level reassessed. Patient is alert, oriented x 3, equal unlabored respirations, skin warm/dry/pink. Vital Signs: 05/02 23:15 BP 149 / 102; Pulse 87; Resp 18; Pulse Ox 100% ; Weight 95.25 kg; Height 5 ft. 5 in. ; vc1 Pain 07/17; 05/03 00:00 BP 144 / 107; Pulse 83; Resp 19; Pulse Ox 95% on R/A; vc1 01:30 BP 144 / 96; Pulse 83; Resp 20; Pulse Ox 95% ; vc1 02:10 BP 163 / 96; Pulse 99; Resp 17; Pulse Ox 99% ; vc1 03:00 BP 155 / 92; Pulse 84; Resp 17; Pulse Ox 97% ; vc1 04:00 BP 127 / 79; Pulse 77; Resp 17; Pulse Ox 97% on R/A; vc1 05:00 BP 117 / 81; Pulse 74; Resp 16; Pulse Ox 95% on R/A; vc1 05/02 23:15 Body Mass Index 34.95 (95.25 kg, 165.1 cm) vc1 05/02 23:15 Pain Scale: Adult vc1 ED Course: 05/02 23:04 Patient arrived in ED. es 23:04 [facility] cp 23:05 Alek Mckee MD is Attending Physician. cp 23:05 Oliverio Bustamante MD is Private Physician. es 23:12 Travis Camacho, RN is Primary Nurse. as6 23:17 Triage completed. vc1 23:18 Arm band placed on left wrist. vc1 23:21 Patient has correct armband on for positive identification. Placed in gown. Bed in low vc1 position. Call light in reach. Side rails up X2. Client placed on continuous cardiac and pulse oximetry monitoring. NIBP monitoring applied. 23:54 XRAY Chest (1 view) In Process Unspecified. EDMS 05/03 00:42 Primary Nurse role handed off by Travis Camacho, SENAIT jb4 00:42 Yariel Humphrey, SENAIT is Primary Nurse. jb4 01:03 CT Aorta for Dissection In Process Unspecified. EDMS 02:27 Zaria Almendarez is Hospitalizing Provider. cp 06:07 No provider procedures requiring assistance completed. Patient admitted, IV remains in jb4 place. Patient maintains SpO2 saturation greater than 95% on room air. Administered Medications: 05/02 23:54 Drug: morphine IVP or IV 4 mg Route: IVP; Infused Over: 4 mins; Site: right antecubital;[facility] 05/03 00:30 Follow up: Response: No adverse reaction vc1 05/02 23:54 Drug: Ondansetron IVP 4 mg Route: IVP; Site: right antecubital; [facility] 05/03 00:30 Follow up: Response: No adverse reaction; Marked relief of symptoms vc1 03:01 Drug: Metoprolol PO 25 mg Route: PO; jb4 04:00 Follow up: Response: No adverse reaction; Marked relief of symptoms; Blood pressure is vc1 lowered 03:01 Drug: Aspirin PO Chewable Tablet 324 mg Route: PO; jb4 05:37 Follow up: Response: No adverse reaction; Marked relief of symptoms vc1 03:01 Drug: Ketorolac IVP 15 mg Route: IVP; Site: right antecubital; jb4 05:37 Follow up: Response: No adverse reaction; Marked relief of symptoms vc1 03:01 Drug: NS 0.9% IV 500 ml Route: IV; Rate: bolus; Site: right antecubital; jb4 03:30 Follow up: IV Status: Completed infusion; IV Intake: 500ml vc1 03:01 Drug: morphine IVP or IV 4 mg Route: IVP; Infused Over: 4 mins; Site: right antecubital;jb4 05:38 Follow up: Response: No adverse reaction; Marked relief of symptoms; Pain is decreased vc1 03:18 Drug: Ondansetron IVP 4 mg Route: IVP; Site: right forearm; vc1 05:38 Follow up: Response: No adverse reaction; Marked relief of symptoms vc1 03:37 Drug: NS 0.9% IV 500 ml Route: IV; Rate: 100 ml/hr; Site: right antecubital; jb4 05:37 Follow up: IV Status: Infusion continued upon admission vc1 Medication: 05/02 23:19 VIS not applicable for this client. vc1 Intake: 05/03 03:30 IV: 500ml; Total: 500ml. vc1 Outcome: 02:28 Decision to Hospitalize by Provider. cp 06:07 Admitted to Med/surg via wheelchair, room 228, with chart. jb4 06:07 Condition: stable 06:07 Discharge instructions given to patient, family, Instructed on the need for admit, Demonstrated understanding of instructions. 06:07 Patient left the ED. jb4 Signatures: Dispatcher [employer] Eloina Quintero Corey, PA PA cp Bryson, James RN RN jb4 Travis Camacho RN RN as6 Jessica Dietrich RN RN vc1
--- NOTE | 2023-05-03 02:28 | EDPHYS ---
Physician Documentation [facility] Name: Donna Sinclair Age: 62 yrs Sex: Female : 1960 Arrival Date: 05/02/2023 Time: 23:00 Bed 5 Private MD: Oliverio Bustamante E ED Physician Alek Mckee HPI: 05/02 23:20 This 62 yrs old Female presents to ER via Wheelchair with complaints of Chest cp Pain, LUNG PAIN, Arm Pain. 23:20 The patient or guardian reports chest pain that is located primarily in the anterior cp chest wall, left. 23:20 Onset: this morning, and became worse 1 hour(s) ago. The patient presents with pain cp that is acute, with no known mechanism of injury. Onset: The symptoms/episode began/occurred today. Associated signs and symptoms: Pertinent positives: shortness of breath, right arm pain, Pertinent negatives: abdominal pain, numbness, weakness, vomiting. Historical: - Allergies: 23:17 Savella; vc1 - Home Meds: 23:17 Eliquis oral [Active]; vc1 - PMHx: 23:17 clot in lung; CVA; EDEMA; Fibromyalgia; Hypertension; vc1 - PSHx: 23:17 None; vc1 - Immunization history:: Client reports having NOT received the Covid vaccine. - Social history:: Smoking status: Patient denies any tobacco usage or history of. ROS: 23:22 Constitutional: Negative for body aches, chills, fever, poor PO intake. cp 23:22 Eyes: Negative for injury, pain, redness, and discharge. cp 23:22 ENT: Negative for drainage from ear(s), ear pain, sore throat, difficulty swallowing, cp difficulty handling secretions. 23:22 Cardiovascular: Positive for chest pain, Negative for edema, palpitations. 23:22 Respiratory: Positive for shortness of breath, Negative for cough, wheezing. 23:22 Abdomen/GI: Negative for abdominal pain, vomiting, diarrhea, constipation. 23:22 Back: Positive for radiated pain, Negative for injury or acute deformity, decreased range of motion. 23:22 Neuro: Negative for altered mental status, dizziness, headache, numbness, weakness. 23:22 All other systems are negative. Exam: 23:15 ECG was reviewed by the Attending Physician. cp 23:25 Constitutional: The patient appears in no acute distress, alert, awake, cp non-diaphoretic, non-toxic, well developed, well nourished, uncomfortable. 23:25 Head/Face: Normocephalic, atraumatic. cp 23:25 Eyes: Periorbital structures: appear normal, Conjunctiva: normal, no exudate, no injection, Sclera: no appreciated abnormality, Lids and lashes: appear normal, bilaterally. 23:25 ENT: External ear(s): are unremarkable, Nose: is normal, Mouth: Lips: moist, Oral mucosa: pink and intact, moist, Posterior pharynx: is normal, airway is patent, no erythema, no exudate. 23:25 Chest/axilla: Inspection: normal, Palpation: is normal, no crepitus, no tenderness. 23:25 Cardiovascular: Rate: normal, Rhythm: regular, Edema: is not appreciated, JVD: is not cp appreciated. 23:25 Respiratory: the patient does not display signs of respiratory distress, Respirations: normal, no use of accessory muscles, no retractions, labored breathing, is not present, Breath sounds: are clear throughout, no decreased breath sounds, no stridor, no wheezing. 23:25 Abdomen/GI: Inspection: abdomen appears normal, Palpation: abdomen is soft and non-tender, in all quadrants. 23:25 Back: pain, that is moderate, of the left scapular area, right scapular area, left subscapular area, right subscapular area, left mid back and right mid back, ROM is painful, with all movement. 23:25 Skin: cellulitis, is not appreciated, no rash present. 23:25 Neuro: Orientation: to person, place \T\ time. Mentation: is normal, Motor: moves all fours, strength is normal, Sensation: is normal. Vital Signs: 23:15 BP 149 / 102; Pulse 87; Resp 18; Pulse Ox 100% ; Weight 95.25 kg; Height 5 ft. 5 in. ; vc1 Pain 10; 05/03 00:00 BP 144 / 107; Pulse 83; Resp 19; Pulse Ox 95% on R/A; vc1 01:30 BP 144 / 96; Pulse 83; Resp 20; Pulse Ox 95% ; vc1 02:10 BP 163 / 96; Pulse 99; Resp 17; Pulse Ox 99% ; vc1 03:00 BP 155 / 92; Pulse 84; Resp 17; Pulse Ox 97% ; vc1 04:00 BP 127 / 79; Pulse 77; Resp 17; Pulse Ox 97% on R/A; vc1 05:00 BP 117 / 81; Pulse 74; Resp 16; Pulse Ox 95% on R/A; vc1 05/02 23:15 Body Mass Index 34.95 (95.25 kg, 165.1 cm) vc1 05/02 23:15 Pain Scale: Adult [facility] [place] MDM: 05/02 23:07 Patient medically screened. 05/03 02:25 Data reviewed: vital signs, nurses notes. 02:25 The patient was given aspirin in the Emergency Department. Consideration of cp Admission/Observation Patient was admitted/placed on observation. Management of patient was discussed with the following: Hospitalist: Zaria Almendarez [employer]IVER will admit after discussion. I considered the following discharge prescriptions or medication management in the emergency department Medications were administered in the Emergency Department. See MAR. Care significantly affected by the following chronic conditions: Hypertension. Counseling: I had a detailed discussion with the patient and/or guardian regarding: the historical points, exam findings, and any diagnostic results supporting the discharge/admit diagnosis, lab results, radiology results. Response to treatment: the patient's symptoms have mildly improved after treatment. 05/02 23:18 Order name: Basic Metabolic Panel; Complete Time: 00:01 05/03 00:01 Interpretation: Normal except: CRE 0.54. 05/02 23:18 Order name: CBC with Diff; Complete Time: 00:01 05/03 00:01 Interpretation: Normal except: WBC 11.50. 05/02 23:18 Order name: LFT's; Complete Time: 00:01 05/03 02:16 Interpretation: Normal except: AST 12; ALK 127; GLOB 3.9; A/G 0.9. 05/02 23:18 Order name: Magnesium; Complete Time: 00:01 05/02 23:18 Order name: NT PRO-BNP; Complete Time: 00:01 05/02 23:18 Order name: PT-INR; Complete Time: 00:01 05/02 23:18 Order name: Troponin HS; Complete Time: 00:01 05/03 02:16 Interpretation: Reviewed. cp 05/02 23:46 Order name: Lipase; Complete Time: 00:01 EDMS 05/03 03:38 Order name: Urinalysis w/ reflexes EDDE 05/03 03:38 Order name: Basic Metabolic Panel EDDE 05/03 03:38 Order name: Basic Metabolic Panel EDDE 05/03 03:38 Order name: CBC with Automated Diff EDDE 05/03 03:38 Order name: CBC with Automated Diff EDMS 05/03 03:38 Order name: Magnesium EDMS 05/03 03:38 Order name: Magnesium EDMS 05/03 03:38 Order name: Troponin High Sensitivity EDDE 05/03 03:38 Order name: Troponin High Sensitivity EDDE 05/03 03:38 Order name: Troponin High Sensitivity [facility] 05/03 03:38 Order name: Troponin High Sensitivity [facility] 05/03 03:38 Order name: Lipid Profile [facility] 05/02 23:18 Order name: XRAY Chest (1 view) 05/03 00:05 Order name: CT Aorta for Dissection 05/02 23:18 Order name: EKG; Complete Time: 23:18 05/03 03:38 Order name: NPO [facility] 05/02 23:18 Order name: Cardiac monitoring; Complete Time: 23:29 05/02 23:18 Order name: EKG - Nurse/Tech; Complete Time: 23:29 05/02 23:18 Order name: IV Saline Lock; Complete Time: 23:29 05/02 23:18 Order name: Labs collected and sent; Complete Time: 23:29 05/02 23:18 Order name: O2 Per Protocol; Complete Time: 23:29 05/02 23:18 Order name: O2 Sat Monitoring; Complete Time: 23:29 EC/26 23:15 Rate is 87 beats/min. Rhythm is regular. PA interval is normal. QRS interval is normal. cp QT interval is normal. T waves are Inverted in leads III, aVR. Interpreted by me. Reviewed by me. Administered Medications: 23:54 Drug: morphine IVP or IV 4 mg Route: IVP; Infused Over: 4 mins; Site: right antecubital;jb4 05/03 00:30 Follow up: Response: No adverse reaction vc1 05/02 23:54 Drug: Ondansetron IVP 4 mg Route: IVP; Site: right antecubital; jb4 05/03 00:30 Follow up: Response: No adverse reaction; Marked relief of symptoms vc1 03:01 Drug: Metoprolol PO 25 mg Route: PO; jb4 04:00 Follow up: Response: No adverse reaction; Marked relief of symptoms; Blood pressure is vc1 lowered 03:01 Drug: Aspirin PO Chewable Tablet 324 mg Route: PO; jb4 05:37 Follow up: Response: No adverse reaction; Marked relief of symptoms vc1 03:01 Drug: Ketorolac IVP 15 mg Route: IVP; Site: right antecubital; jb4 05:37 Follow up: Response: No adverse reaction; Marked relief of symptoms vc1 03:01 Drug: NS 0.9% IV 500 ml Route: IV; Rate: bolus; Site: right antecubital; jb4 03:30 Follow up: IV Status: Completed infusion; IV Intake: 500ml vc1 03:01 Drug: morphine IVP or IV 4 mg Route: IVP; Infused Over: 4 mins; Site: right antecubital;jb4 05:38 Follow up: Response: No adverse reaction; Marked relief of symptoms; Pain is decreased vc1 03:18 Drug: Ondansetron IVP 4 mg Route: IVP; Site: right forearm; vc1 05:38 Follow up: Response: No adverse reaction; Marked relief of symptoms vc1 03:37 Drug: NS 0.9% IV 500 ml Route: IV; Rate: 100 ml/hr; Site: right antecubital; jb4 05:37 Follow up: IV Status: Infusion continued upon admission vc1 Disposition: : Co-signature as Attending Physician, Alek Mckee MD I agree with the assessment sp4 and plan of care. I reviewed the patient's care provided by the Advanced Practice Provider and agree with the diagnosis and treatment plan. Disposition Summary: 05/03/23 02:28 Hospitalization Ordered Hospitalization Status: Observation cp Provider: Zaria Almendarez cp Condition: Stable cp Problem: new cp Symptoms: have improved cp Bed/Room Type: Standard cp Location: Telemetry/MedSurg (observation)(05/03/23 05:29) eb1 Room Assignment: [facility](05/03/23 05:29) eb1 Diagnosis - Chest pain, unspecified cp - Hypertensive heart disease without heart failure cp Forms: - Medication Reconciliation Form cp - SBAR form cp Signatures: Dispatcher [employer] EDDE Enoch Persaud PA PA cp Bryson, James RN RN jb4 Tuyet Villeda RN RN eb1 Jessica Dietrich RN RN vc1 Alek Mckee MD MD sp4 Corrections: (The following items were deleted from the chart) 05/02 23:45 23:27 LIPASE+C.LAB.BRZ ordered. EDDE EDDE 05/03 02:25 01:58 Constitutional: The patient appears in no acute distress, alert, awake, cp non-diaphoretic, non-toxic, well developed, well nourished, uncomfortable, cp 02:25 01:58 Head/Face: Normocephalic, atraumatic. cp cp 02:25 01:58 Eyes: Periorbital structures: appear normal, Conjunctiva: normal, no exudate, no cp injection, Sclera: no appreciated abnormality, Lids and lashes: appear normal, bilaterally, cp 02:25 01:58 ENT: External ear(s): are unremarkable, Nose: is normal, Mouth: Lips: moist, Oral cp mucosa: pink and intact, moist, Posterior pharynx: is normal, airway is patent, no erythema, no exudate, cp 02:25 01:58 Neck: ROM/movement: is normal, is supple, without pain, no range of motions cp limitations, no meningismus, cp 02:25 01:58 Chest/axilla: Inspection: normal, cp cp 02:25 01:58 Cardiovascular: Rate: tachycardic, Rhythm: regular, cp cp 02:25 01:58 Respiratory: the patient does not display signs of respiratory distress, cp Respirations: normal, no use of accessory muscles, no retractions, labored breathing, is not present, Breath sounds: are clear throughout, no decreased breath sounds, no stridor, no wheezing, cp 02:25 01:58 Abdomen/GI: Inspection: abdomen appears normal, Palpation: abdomen is soft and cp non-tender, in all quadrants, cp 02:25 01:58 Back: pain, that is moderate, CVA tenderness, is absent, vertebral tenderness, is cp not appreciated, cp 02:25 01:58 Skin: no rash present. cp cp 02:25 01:58 Neuro: Orientation: to person, place \T\ time. Mentation: is normal, Cerebellar cp function: is grossly normal, Motor: moves all fours, strength is normal, Sensation: is normal, cp 05:05 02:28 Telemetry/MedSurg (observation) cp eb1 05:05 02:28 cp eb1 05:29 05:05 [facility] ER HOLD eb1 eb1 05:29 05:05 ERHOLD- eb1 eb1 05/04 01:53 05/02 23:20 Associated signs and symptoms: Pertinent positives: shortness of breath, , cp Pertinent negatives: abdominal pain, numbness, weakness, vomiting, cp 05/04 02:05/03 01:58 Cardiovascular: Positive for chest pain, Negative for edema, palpitations, cp cp 05/04 02:05/03 01:58 Respiratory: Positive for shortness of breath, Negative for cough, cp wheezing, cp 05/04 02:05/03 01:58 Abdomen/GI: Negative for abdominal pain, vomiting, diarrhea, constipation, cp cp 05/04 02:05/03 01:58 ENT: Negative for drainage from ear(s), ear pain, sore throat, difficulty cp swallowing, difficulty handling secretions, cp 05/04 02:05/03 01:58 Back: Positive for radiated pain, Negative for injury or acute deformity, cp decreased range of motion, cp 05/04 02:05/03 01:58 Neuro: Negative for altered mental status, dizziness, headache, numbness, cp weakness, cp 05/04 02:05/03 01:58 All other systems are negative, cp cp
--- NOTE | 2023-05-03 02:39 | P.HP ---
Certification for Inpatient Patient admitted to: Observation With expected LOS: <2 Midnights Patient will require the following post-hospital care: None Practitioner: I am a practitioner with admitting privileges, knowledge of patient current condition, hospital course, and medical plan of care. Services: Services provided to patient in accordance with Admission requirements found in Title 42 Section 412.3 of the Code of Federal Regulations Patient History Date of Service: 05/03/23 Reason for admission: Chest pain History of Present Illness: 59 yrs old female with past medical history of pulmonary embolus on Eliquis, CAD, CO, hypertension and anxiety , chronic pain, Fibromyalgia , hypothyroidism came with complaints of Chest Pain. She reports chest pain in her shoulder blades, radiates to her right arm. She reports pain 7 out of 10, reports mild associated shortness of breath that is worse with exertion. She reports medication compliance on Eliquis, and hypertensive medications. She reports taking [place] 5 for chronic pain. She denies dizziness, cough, nausea vomiting diarrhea, abdominal pain, edema. She reports seeing a transportation specialist 1-1/2-year ago. Plan to admit for chest pain rule out CO. EKG Blood pressure 144/96, O2 sat 95% on room air heart rate 83, 87 beats/min. Rhythm is regular. [place] interval is normal. QRS interval is normal. QT interval is normal. T waves are Inverted in leads III, aVR, Troponin 16.8, BNP 72, lipid panel ordered for a.m., CT rule out dissection ordered, chest x-ray ordered Allergies milnacipran [From Savella] Allergy (Intermediate, Verified 10/05/19 16:55) Hives/Rash Home Medications: Levothyroxine [Synthroid*] 50 mcg PO [id number] 06/23/19 Meclizine HCl [Antivert*] 12.5 mg PO PRN PRN 06/23/19 Oxaprozin [Daypro] 2 tab PO DAILY 06/23/19 predniSONE [Prednisone*] 10 mg PO DAILY 06/23/19 ALPRAZolam [Xanax*] 1 mg PO TID PRN 10/05/19 Docusate [Colace Cap*] 100 mg PO BID 10/05/19 Hydrocodone 7.5/APAP 325 [[place] 7.5/325 mg*] 1 tab PO Q6H PRN 10/05/19 Tramadol HCl [Ultram] 50 mg PO Q4HP PRN 10/05/19 methocarbamoL [Robaxin*] 750 mg PO TID PRN 10/05/19 Apixaban [Eliquis] 5 mg PO BID #69 tablet 10/07/19 Famotidine [Pepcid*] 20 mg PO BID #60 tab 10/07/19 Levofloxacin [Levaquin] 500 mg PO DAILY #6 tablet 10/07/19 Nicotine [Nicoderm*] 21 mg TD DAILY #21 patch.[id number] 10/07/19 Albuterol Sulfate [Proair Hfa] 8.5 gm IH TID PRN #1 hfa.aer.ad 10/09/19 Benzonatate [Tessalon Perle*] 200 mg PO Q8H PRN #30 cap 10/09/19 Metoprolol Tartrate [Lopressor*] 50 mg PO BID #60 tab 10/09/19 - Past Medical/Surgical History Diabetic: No -: anxiety -: CO -: HTN -: History of pulmonary emboli -: Fibromyalgia -: History of CO -: Hypothyroidism -: NECK SX -: LEFT FOOT SX W/SCREWS AND PIN -: DAMIEN -: APPY -: TUBAL LIGATION -: PE Psychosocial/ Personal History: , lives with spouse no use of tobacco or EtOH - Family History Mother -: Hypertension, Diabetes, Stroke, Cancer, Other (see notes) Notes: scolosis Father -: Hypertension, Cancer - Social History Smoking Status: Former smoker Alcohol use: No CD- Drugs: No Caffeine use: Yes Review of Systems 10-point ROS is otherwise unremarkable Physical Examination - Physical Exam General: Alert, In no apparent distress, Oriented x3 HEENT: Atraumatic, Normocephalic, PERRLA Neck: Supple, 2+ carotid pulse no bruit, JVD not distended Cardiovascular: No edema, Normal pulses, Regular rate/rhythm Gastrointestinal: Normal bowel sounds, Soft and benign Musculoskeletal: No clubbing, No swelling Neurological: Normal gait, Normal speech, Normal strength at 5/5 x4 extr, Cranial nerves 3-12 intact - Studies Laboratory Data (last 24 hrs) 05/02/23 23:27: Lipase Cancelled 05/02/23 23:23: PT 11.3, INR 1.03 05/02/23 23:23: WBC 11.50 H, Hgb 12.5, Hct 37.9, Plt Count 275 05/02/23 23:23: Sodium 136, Potassium 3.7, BUN 12, Creatinine 0.54 L, Glucose 96, Magnesium 2.1, Total Bilirubin 0.9, AST 12 L, ALT 28, Alkaline Phosphatase 127 H, Lipase 43 Assessment and Plan - Plan Assessment plan chest pain rule out CO PE on Eliquis Essential hypertension Anxiety HX CO Fibromyalgia Hypothyroidism Assessment plan admit to Med surg, tele chest pain rule out CO Troponin, BNP normal Card consult, trend trop Blood pressure 144/96, O2 sat 95% on room air heart rate 83, 87 beats/min. Rhythm is regular. W[place] interval is normal. QRS interval is normal. QT interval is normal. T waves are Inverted in leads III, aVR, Troponin 16.8, BNP 72, lipid panel ordered for a.m CT rule out dissection ordered, chest x-ray ordered PE on Eliquis Continue Eliquis CT chest R/O discection Essential hypertension Anxiety Hypothyroidism HX CO Resume home meds, antihypertensive, Resume home Statins. prn's antianxiety meds, pain meds DVT Eliquis Full code Diet n.p.o. Discharge Plan: Home Plan to discharge in: 24 Hours - Advance Directives Does patient have a Living Will: No Does patient have a Durable POA for Healthcare: No - Code Status/Comfort Care Code Status: Full Code Physician Review: Patient Assessed, Agree with Above Assessment and Plan Critical Care: No Time Spent Managing Pts Care (In Minutes): 55
[2023-05-03] MEDS ORDERED: ASPIRIN 81 MG CHEWABLE TABLET ONE (02:59)
[2023-05-03] MEDS ORDERED: METOPROLOL TAR 25 MG TAB ONE (03:00)
[2023-05-03] MEDS ORDERED: KETOROLAC 30 MG/ML INJ ONE (03:00)
[2023-05-03] MEDS ORDERED: MORPHINE 4 MG/ML SYR ONE (03:00)
[2023-05-03] MEDS ORDERED: NA CHLORIDE 0.9% 1,000 ML ONE (03:00)
[2023-05-03] MEDS ORDERED: ONDANSETRON 4 MG/2 ML VIAL ONE (03:24)
[2023-05-03] MEDS ORDERED: ACETAMINOPHEN 500 MG TAB PO PRN (03:36)
[2023-05-03] MEDS ORDERED: ONDANSETRON 4 MG/2 ML VIAL IV PRN (03:36)
[2023-05-03] MEDS ORDERED: ALPRAZOLAM 0.25 MG TABLET PO PRN (03:36)
[2023-05-03] MEDS ORDERED: MORPHINE 2 MG/ML SYR IV PRN (06:29)
[2023-05-03] MEDS ORDERED: NITROGLYCERIN 0.4 MG/TAB SL ONE (06:29)
[2023-05-03] MEDS ORDERED: REGADENOSON 0.4 MG/5 ML SYR IV ONE (07:24)
[2023-05-03] MEDS ORDERED: APIXABAN 5 MG TABLET PO SCH (09:00)
[2023-05-03] MEDS ORDERED: ASPIRIN 325 MG TAB PO SCH (09:00)
[2023-05-03 09:06] VITALS: TEMP 98.9
[2023-05-03 09:29] VITALS: O2SAT 96
[2023-05-03 09:36] LABS: Urine Bacteria None Seen /HPF (<20); Urine Bilirubin NEGATIVE (Negative); Urine Blood Negative (Negative); Urine Clarity Clear (Clear); Urine Color Light-Yellow (Yellow); Urine Glucose NEGATIVE (Negative); Urine Mucus 1+ /HPF (None Seen); Urine Protein TRACE (Negative); Urine RBC <5 /HPF (None Seen); Urine Urobilinogen Normal (Normal); Urine pH 5.5 (5.0-7.0)
[2023-05-03 09:39] LABS: Specific Gravity > 1.030 (1.005-1.030)
[2023-05-03 10:43] VITALS: BMI 36.0
--- NOTE | 2023-05-03 10:51 | RAD REPORT ---
EXAM DESCRIPTION: NM - Rest Stress Cardiac Imaging - 05/03/2023 10:46 am CLINICAL HISTORY: Chest Pain Chest pain. COMPARISON: Rest Stress Cardiac Imaging dated 05/22/2016 TECHNIQUE: The patient was administered approximately 10mCi of Tc 99m Sestamibi prior to resting SPE CT imaging of the heart. The patient was then administered approximately 30 mCi of Tc 99m Sestamibi f ollowing exercise or pharmacologic stress. Multiplanar SPECT images were reviewed. FINDINGS: No stress induced ischemic defect is seen to suggest stress induced ischemia. No fixed def ect is seen to suggest hibernating myocardium or scarred myocardium. The end diastolic volume is 101 ml, the end systolic volume is 52 ml, and the ejection fraction is 48 %. IMPRESSION: No stress induced ischemia.
[2023-05-03 13:02] VITALS: BP 132/81
--- NOTE | 2023-05-03 13:18 | EKG ---
Test Date: 2023-05-02 Test Time: 23:10:52 It Coordinator: SHAKILA MEASUREMENT RESULTS: Intervals: Rate: 87 IL: 136 QRSD: 84 QT: 370 QTc: 445 Anthony: P: 4 IL: 136 QRS: 4 T: 9 INTERPRETIVE STATEMENTS: Normal sinus rhythm Minimal voltage criteria for LVH, may be normal variant Borderline ECG Compared to ECG 10/05/2019 03:42:50 Left ventricular hypertrophy now present Sinus tachycardia no longer present ST (T wave) deviation no longer present Electronically Signed On 05-03-23 13:18:09 CDT by Isacc Acevedo
--- NOTE | 2023-05-03 13:52 | P.DS ---
Admission Date: 05/03/23 Discharge Date: 05/03/23 Disposition: ROUTINE DISCHARGE Discharge Condition: FAIR Reason for Admission: Chest pain - Problems (1) Back pain Status: Acute (2) Chest pain Onset Date: 05/22/16 Status: Acute Qualifiers: Chest pain type: unspecified Qualified Code(s): R07.9 - Chest pain, unspecified (3) Hypertension Onset Date: 05/22/16 Status: Chronic Qualifiers: Hypertension type: essential hypertension Qualified Code(s): I10 - Essential (primary) hypertension (4) History of pulmonary embolism Status: Chronic Brief History of Present Illness: 59 yrs old female with past medical history of pulmonary embolus on Eliquis, CAD, CA, hypertension and anxiety , chronic pain, Fibromyalgia , hypothyroidism came with complaints of Chest Pain. She reported chest pain in her shoulder blades, radiates to her right arm. She reports pain 7 out of 10, reports mild associated shortness of breath that is worse with exertion. She reports medication compliance on Eliquis, and hypertensive medications. She reports taking [place] 5 for chronic pain. She denies dizziness, cough, nausea vomiting diarrhea, abdominal pain, edema. She reports seeing a metallurgical or materials technician 1-1/2-year ago. Plan to admit for chest pain rule out CA. EKG Blood pressure 144/96, O2 sat 95% on room air heart rate 83, 87 beats/min. Rhythm is regular. MS interval is normal. QRS interval is normal. QT interval is normal. T waves are Inverted in leads III, aVR, Troponin 16.8, BNP 72, lipid panel ordered for a.m., CT dissection was unremarkable. Patient was hospitalized for ACS rule out. Hospital Course: Patient placed under observation on the medical floor. Troponin trended negative. Nuclear stress test was done which showed no reversible ischemia. ACS ruled out. Patient is chest and back pain is likely musculoskeletal. Recommended pain management and follow-up with PCP if the pain persist. Vital Signs/Physical Exam: Temp Pulse Resp BP Pulse Ox 98.9 F 68 20 132/81 97 05/03/23 12:00 05/03/23 12:00 05/03/23 12:00 05/03/23 12:00 05/03/23 12:00 General: Alert, In no apparent distress, Oriented x3 HEENT: Mucous membr. moist/pink Neck: Supple, JVD not distended Respiratory: Clear to auscultation bilaterally, Normal air movement Cardiovascular: No edema, Regular rate/rhythm, Normal S1 S2, No murmurs Gastrointestinal: Normal bowel sounds, Soft and benign, Non-distended, No tenderness Musculoskeletal: No swelling Integumentary: No rashes, No cyanosis Neurological: Normal strength at 5/5 x4 extr Laboratory Data at Discharge: WBC 11.50 thou/uL (4.3-10.9) H 05/02/23 23:23 Hgb 12.5 g/dL (12.0-15.0) 05/02/23 23:23 Hct 37.9 % (36.0-45.0) 05/02/23 23:23 Plt Count 275 thou/uL (152-406) 05/02/23 23:23 PT 11.3 SECONDS (9.5-12.5) 05/02/23 23:23 INR 1.03 05/02/23 23:23 Sodium 136 mEq/L (136-145) 05/02/23 23:23 Potassium 3.7 mEq/L (3.5-5.1) 05/02/23 23:23 BUN 12 mg/dL (7-18) 05/02/23 23:23 Creatinine 0.54 mg/dL (0.55-1.02) L 05/02/23 23:23 Glucose 96 mg/dL (74-106) 05/02/23 23:23 Magnesium 2.1 mg/dL (1.6-2.4) 05/02/23 23:23 Total Bilirubin 0.9 mg/dL (0.2-1.0) 05/02/23 23:23 AST 12 U/L (15-37) L 05/02/23 23:23 ALT 28 U/L (13-56) 05/02/23 23:23 Alkaline Phosphatase 127 U/L (45-117) H 05/02/23 23:23 Triglycerides 67 mg/dL (<150) 05/03/23 05:20 Cholesterol 155 mg/dL (<200) 05/03/23 05:20 HDL Cholesterol 71 mg/dL (40-60) H 05/03/23 05:20 Cholesterol/HDL Ratio 2.18 05/03/23 05:20 Lipase Cancelled 05/02/23 23:27 Home Medications: Meclizine HCl [Antivert*] 12.5 mg PO PRN PRN 06/23/19 predniSONE [Prednisone*] 20 mg PO DAILY 06/23/19 ALPRAZolam [Xanax*] 1 mg PO QID PRN 10/05/19 Hydrocodone 7.5/APAP 325 [[place] 7.5/325 mg*] 1 tab PO Q6H PRN 10/05/19 Tramadol HCl [Ultram] 50 mg PO Q4HP PRN 10/05/19 methocarbamoL [Robaxin*] 750 mg PO TID PRN 10/05/19 Apixaban [Eliquis] 5 mg PO BID #69 tablet 10/07/19 Albuterol Sulfate [Proair Hfa] 8.5 gm IH TID PRN #1 hfa.aer.ad 10/09/19 Codeine/APAP [Tylenol W/Codeine #3 tab] 1 tab PO Q6HP PRN #15 tab 05/03/23 Thyroid Tab [Burr Thyroid*] 60 mg PO DAILY 05/03/23 New Medications: Codeine/APAP [Tylenol W/Codeine #3 tab] 1 tab PO Q6HP PRN #15 tab PRN Reason: Pain Diet: AHA Activity: Ad ronen Followup: Chip Patel PA [Primary Care Provider] - Time spent managing pt's care (in minutes): 24
--- NOTE | 2023-05-03 14:40 | TREADPHA ---
DX: CHEST PAIN Date of Study: 05/03/2023 Ht: 5' 4 " Wt: 210 lb 0 oz Consulting Physician: ESTEPHANIA MEDICATIONS: TYLENOL, XANAX, ELIQUIS, DOMINGO ASPIRIN, LIPITOR, MORPHINE, ZOFRAN HISTORY: HISTORY OF LUNG BLOOD CLOTS, THYROID AND HYPERTENSION PHYSICIAL EXAMINATION: RESTING B.P.: 159/87 RESTING H.R.: 74 RESTING EKG: NORMAL SINUS RHYTHM PROTOCOL: PHARMACOLOGIC EXERCISE TIME: 3:30 B.P. AT [place] STRESS: 156/76 IMPRESSION: LEXISCAN STRESS PERFORMED PER PROTOCOL. CARDIOLITE INJECTED (SEE NUCLEAR MEDICINE REPORT). NO ARRHYTHMIAS NOTED. NO SUPRAVENTRICULAR TACHYCARDIA, VENTRICULAR TACHYCARDIA. NO CHEST PAIN, SHORTNESS OF BREATH PER PATIENT. NO ELECTROCARDIOGRAM CHANGES OF ISCHEMIA WITH LEXISCAN.
--- NOTE | 2023-05-03 15:01 | RAD REPORT ---
EXAM DESCRIPTION: XR Chest, 1 View CLINICAL HISTORY: The patient is 62 years old and is Female; CHEST PAIN TECHNIQUE: Frontal view of the chest. COMPARISON: No relevant prior studies available. FINDINGS: Lungs: Unremarkable. No consolidation. Pleural space: Unremarkable. No pneumothorax. Heart: Unremarkable. Mediastinum: Unremarkable. Bones/joints: Unremarkable. IMPRESSION: No acute findings in the chest. Electronically signed by: Dominic Alaniz MD 05/03/2023 12:12 AM CDT Due to temporary technical issues with the PACS/Fluency reporting system, reports are being signed by the in house radiologists without review as a courtesy to insure prompt reporting. The interpreting radiologist is fully responsible for the content of the report.
--- NOTE | 2023-05-03 15:28 | RAD REPORT ---
EXAM DESCRIPTION: CT Angiography Chest, Abdomen and Pelvis With Intravenous Contrast CLINICAL HISTORY: The patient is 62 years old and is Female; chest pain, back pain TECHNIQUE: Axial computed tomographic angiography images of the chest, abdomen and pelvis with intra venous contrast. Sagittal and coronal reformatted images were created and reviewed. This CT exam was performed using one or more of the following dose reduction techniques: automated exposure cont rol, adjustment of the mA and/or kV according to patient size, and/or use of iterative reconstruction technique. MIP reconstructed images were created and reviewed. COMPARISON: No relevant prior studies available. FINDINGS: VASCULATURE: AORTA: Minimal calcified atherosclerotic plaque throughout the aorta is noted. No aortic aneurysm . No dissection. PULMONARY ARTERIES: Unremarkable as visualized. No pulmonary embolism is identified. GREAT VESSELS OF AORTIC ARCH: No acute findings. No dissection. No arterial occlusion or sign ificant stenosis. CELIAC TRUNK AND MESENTERIC ARTERIES: No acute findings. No occlusion or significant stenosis. RENAL ARTERIES: No acute findings. No occlusion or significant stenosis. ILIAC ARTERIES: No acute findings. No occlusion or significant stenosis. CHEST: LUNGS: Unremarkable. No mass. No consolidation. PLEURAL SPACE: Unremarkable. No significant effusion. No pneumothorax. HEART: Unremarkable. No cardiomegaly. No significant pericardial effusion. ABDOMEN: LIVER: The liver is mildly enlarged and homogeneous. GALLBLADDER AND BILE DUCTS: Surgical clips are present in the right upper quadrant, consistent wi th previous cholecystectomy. No ductal dilation. PANCREAS: Unremarkable. No ductal dilation. No mass. SPLEEN: Unremarkable. No splenomegaly. ADRENALS: Unremarkable. No mass. KIDNEYS AND URETERS: Unremarkable. No hydronephrosis. No solid mass. STOMACH AND BOWEL: The stomach is minimally distended with food contents. The small bowel is norm al in caliber. Stool is present throughout colon. There is no mucosal thickening or evidence of obstr uction. PELVIS: APPENDIX: The appendix is surgically absent. BLADDER: The bladder is moderately distended. REPRODUCTIVE: Unremarkable as visualized. CHEST, ABDOMEN and PELVIS: INTRAPERITONEAL SPACE: Unremarkable. No significant fluid collection. No free air. BONES/JOINTS: No acute fracture. No dislocation. SOFT TISSUES: A small fat-containing umbilical hernia is present. LYMPH NODES: Unremarkable. No enlarged lymph nodes. IMPRESSION: No aortic aneurysm or dissection. Electronically signed by: Aimee Olivas MD 05/03/2023 1:38 AM CDT Due to temporary technical issues with the PACS/Fluency reporting system, reports are being signed by the in house radiologists without review as a courtesy to insure prompt reporting. The interpreting radiologist is fully responsible for the content of the report.
[2023-05-03] MEDS ORDERED: ATORVASTATIN 40 MG TAB PO SCH (21:00)
--- NOTE | 2023-05-04 00:03 | CON ---
Date of Consultation: 05/03/2023 Reason For Consultation: Chest pain. History Of Present Illness: A -odeg-uys female with history of coronary artery disease; hy pertension; fibromyalgia; pulmonary embolism, on Eliquis; hypothyroidism, presented with chest pain, retrosternal, radiates to her shoulder and the right arm. Severity was moderate and not related to e xertion. She has mild shortness of breath on exertion, but no other complaints. Past Medical History: As outlined above in the HPI. Medications: Refer to reconciliation sheet for the list. Allergies: MILNACIPRAN. Family History: No premature coronary artery disease or cancer. Social History: Does not smoke or drink. Does not use any drugs. Review of Systems: All systems reviewed, they are negative except for mentioned in HPI. Physical Examination: Vital Signs: Reviewed. Head and Neck: Pupils are equal and reactive to light. Intact eye movements. No JVD. No cervical lymphadenopathy. Neck is supple. Thyroid is not enlarged. Lungs: Clear to auscultation bilaterally. No rhonchi, rales, or crackles. No accessory muscle use. Heart: Regular rate and rhythm. No extra sounds. Abdomen: Soft, nontender. Bowel sounds positive. No organomegaly. No masses or hernia. No rigidi ty or rebound. Extremities: No edema, clubbing, or cyanosis. Intact pulses. Skin: No rashes. Neurologic: Alert, awake, oriented x3. No acute focal deficits appreciated. Lymph Nodes: No cervical or axillary lymphadenopathy. Investigations: CT scan of the chest showed no dissection or pulmonary embolus and regular stress te st was negative. Cardiac enzymes negative x4. BUN is 12, creatinine 0.54, and hemoglobin is 12.5. Assessment And Recommendation: 1.Chest pain, atypical with negative cardiac enzymes and negative stress test. The patient can be r eleased from Cardiology standpoint. Follow up as an outpatient. 2.Hypertension. Blood pressure is controlled. Continue current management. 3.History of pulmonary embolism, to continue on Eliquis for life. 4.Dyslipidemia. Continue statin. Cardiology will sign off. SR/MODL Voice ID: [id number] Report ID: [id number]
== END 2023-05-03 14:30 | disposition home or self-care (01) ==
LOC: ER 23:00 → ERHOLD 05-03 03:29 → 2ND 05-03 05:43
PROVIDERS: ADMIT Internal Medicine; ATTEND Internal Medicine
DX: R07.9 Chest pain, unspecified (principal); M54.9 Dorsalgia, unspecified; I26.99 Other pulmonary embolism without acute cor pulmonale; F41.9 Anxiety disorder, unspecified; E03.9 Hypothyroidism, unspecified; I25.2 Old myocardial infarction; I25.10 Atherosclerotic heart disease of native coronary artery without angina pectoris; M79.7 Fibromyalgia; E78.5 Hyperlipidemia, unspecified; Z79.01 Long term (current) use of anticoagulants
CPT/HCPCS: 36415; 71045; 71275; 74175; 78452; 80048; 80061; 80076; 81001; 83690; 83735; 83880; 84484; 85025; 85610; 93005; 93017; 94760; 99285; A9500; J2270; J2405; J2785; J7030; Q9967